=== PATIENT | female | born 1970 | race Caucasian/White ===

== ENCOUNTER 2018-12-16 11:40 | Inpatient (IN) ==
--- NOTE | 2018-12-16 11:44 | Emergency Department Note ---
Disposition Clinical Impression: Multifocal pneumonia, Elevated troponin, Hypokalemia Sepsis Qualifiers: Sepsis type: sepsis due to unspecified organism Sepsis acute organ dysfunction status: unspecified Qualified Code(s): A41.9 - Sepsis, unspecified organism Disposition: Admitted As Inpatient Time of Disposition: 20:26 General Adult HPI - General Stated complaint: cp Time Seen by Provider: 12/16/18 11:42 - Related Data Home Medications Medication Instructions Recorded Confirmed Albuterol Sulfate [Albuterol 2 puff IH Q4HR 12/29/14 12/29/14 Inhaler] Axert 12.5 mg PO AD PRN 12/29/14 12/16/18 Buspirone [Buspar] 15 mg PO BID 12/29/14 12/29/14 Cetirizine HCl [Zyrtec] 10 mg PO DAILY 12/29/14 12/16/18 Citalopram [CeleXA] 40 mg PO QPM 12/29/14 12/16/18 Cyclobenzaprine [Flexeril] 5 mg PO TID 12/29/14 12/16/18 DULoxetine [Cymbalta] 60 mg PO QPM 12/29/14 12/16/18 DiphenhydraMINE [Benadryl] 25 mg PO Q6HR 12/29/14 12/16/18 Fluticasone Propionate Nasal 1 spray NS DAILY PRN 12/29/14 12/16/18 [Flonase] Folic Acid 1 mg PO TID 12/29/14 12/16/18 Gabapentin [Neurontin] 600 mg PO HS 12/29/14 12/16/18 Metformin [Glucophage] 500 mg PO BID 12/29/14 12/16/18 Omeprazole [PriLOSEC] 40 mg PO QPM 12/29/14 12/16/18 Oxymorphone HCl [Opana ER] 15 mg PO Q12H 12/29/14 12/16/18 Propranolol [Inderal] 40 mg PO BID 12/29/14 12/16/18 Temazepam [Restoril] 30 mg PO HS 12/29/14 12/16/18 Allergies Allergy/AdvReac Type Severity Reaction Status Date / Time adhesive Allergy Hives Verified 12/29/14 09:06 Amoxicillin Allergy Hives Verified 12/29/14 09:06 clarithromycin [From Biaxin] Allergy Hives Verified 12/29/14 09:06 Erythromycin Base Allergy Hives Verified 12/29/14 10:52 [From Erythrocin] morphine Allergy Hives Verified 12/29/14 09:06 Penicillins Allergy Hives Verified 12/29/14 09:06 sulfamethoxazole Allergy Hives Verified 06/06/16 15:55 [From Bactrim] trimethoprim [From Bactrim] Allergy Hives Verified 06/06/16 15:55 Past Medical History - Past Medical History Medical history: Reports: asthma, COPD, CVA, diabetes, fibromyalgia, hypertension, RA Psychiatric history: Reports: no psych history - Social History Smoking Status: Never smoker Smokeless Tobacco Status: No Alcohol use: Reports: none Drug use: Reports: none Course Vital Signs Temperature 99.0 F 12/16/18 11:46 Pulse Rate 136 12/16/18 11:46 Respiratory Rate 22 12/16/18 11:46 Blood Pressure 165/85 12/16/18 11:46 O2 Sat by Pulse Oximetry 97 12/16/18 11:46 Temperature 98.3 F 12/16/18 19:02 Pulse Rate 136 12/16/18 19:02 Respiratory Rate 24 12/16/18 19:02 Blood Pressure 135/80 12/16/18 19:02 O2 Sat by Pulse Oximetry 95 12/16/18 19:02 Oxygen Delivery Oxygen Delivery Room Air Medical Decision Making - Lab Data Result diagrams: 12/16/18 11:53 12/16/18 17:07 Lab Results 12/16/18 12/16/18 12/16/18 Range/Units 11:53 11:53 13:18 WBC 13.9 H (4.3-11.1) K/mcL RBC 4.09 (3.82-4.97) M/mcL Hgb 14.1 (11.5-15.4) g/dL Hct 40.6 (35.3-44.9) % MCV 99.3 (83.0-100.0) fL MCH 34.5 H (28.0-33.3) pg MCHC 34.7 (31.6-35.5) g/dL RDW 13.1 (11.5-14.5) % Plt Count 198 (140-400) K/mcL MPV 11.0 (9.4-12.4) fL Immature Gran % 0.9 (0-4) % Seg Neutrophils % 78.7 % Lymphocytes % 6.6 % Monocytes % 13.6 % Eosinophils % 0.0 % Basophils % 0.2 % Neutrophils # 10.9 H (1.6-8.9) K/mcL Lymphocytes # 0.9 (0.6-4.6) K/mcL Monocytes # 1.9 H (0.0-1.3) K/mcL Eosinophils # 0.0 (0.0-0.6) K/mcL Basophils # 0.0 (0.0-0.2) K/mcL Sodium 129 L (136-145) mEq/L Potassium 3.4 L (3.5-5.1) mEq/L Chloride 92 L (98-107) mEq/L Carbon Dioxide 24 (23-29) mEq/L BUN 14 (6-20) mg/dL Creatinine 0.92 (0.60-1.20) mg/dL Est GFR ( Amer) > 60 (> 60) Est GFR (Non-Af Amer) > 60 (> 60) BUN/Creatinine Ratio 15 (6-26) Glucose 350 H (70-105) mg/dL Calculated Osmolality 282 (280-300) Lactic Acid 1.7 (0.5-2.2) mmol/L Calcium 8.8 (8.6-10.3) mg/dL Total Bilirubin 1.1 H (0.3-1.0) mg/dL Direct Bilirubin 0.4 H (0.0-0.2) mg/dL Indirect Bilirubin 0.7 (0.0-1.2) mg/dL AST 10 L (13-39) Units/L ALT 12 (7-52) Units/L Alkaline Phosphatase 80 (34-104) Units/L Troponin I 0.04 H* (< 0.04) ng/mL Serum Total Protein 7.2 (6.4-8.9) g/dL Albumin 3.8 (3.5-5.7) g/dL Globulin 3.4 (2.4-3.5) g/dL Albumin/Globulin Ratio 1.1 (1.1-2.2) Lipase 9 L (11-82) Units/L Critical Care Time Critical Care Time: Yes Total Critical Care Time: 30 Attestation: The high probability of a clinically significant, sudden or life threatening deterioration of the [] system(s) required my full and direct attention, intervention and personal management. The aggregate critical care time was [] minutes. This time is in addition to time spent performing reported procedures but includes the following: [] Data Review and interpretation [] Patient assessment and monitoring of vital signs [] Documentation [] Medication orders and management Attestation Statement - Attestation Attestation: I reviewed the residents documentation and agree with the residents assessment and plan of care. I have personally had face to face time with the patient. (Brief History, Brief Exam, and MDM) I personally supervised and was present for the reyes/critical portions of the following procedures completed by the resident: (add procedures performed here). [id number] time provided Patient arrives by EMS complaining of chest discomfort. She was given an aspirin prehospital. She appears in no acute distress upon arrival to the medical treatment room. I evaluated this patient in conjunction with the resident physician Dr. Engel. I attest to supervising the resident physician's interpretation of the ECG
[2018-12-16] MEDS ORDERED: 0.9 % Sodium Chloride 1,000 ML IVC ONE (11:49)
[2018-12-16] MEDS ORDERED: *HR* FentaNYL (PF) 100 MCG/2 ML VIAL IVP ONE ×2 (11:49→16:28)
[2018-12-16] MEDS ORDERED: Ondansetron 4 MG/2 ML VIAL IVP ONE ×2 (11:49→12:00)
--- NOTE | 2018-12-16 12:02 | Emergency Department Note ---
Disposition Clinical Impression: Multifocal pneumonia, Elevated troponin, Hypokalemia Sepsis Qualifiers: Sepsis type: sepsis due to unspecified organism Sepsis acute organ dysfunction status: unspecified Qualified Code(s): A41.9 - Sepsis, unspecified organism Disposition: Admitted As Inpatient Referrals: Wilton Reyna DO [Primary Care Provider] - Forms: ED Satisfaction Letter Time of Disposition: 13:34 General Adult HPI - General Chief complaint: ED Chest Pain Stated complaint: cp Time Seen by Provider: 12/16/18 11:42 Source: patient, EMS Mode of arrival: EMS Limitations: no limitations Nursing Notes Reviewed: Yes Vital Signs Reviewed: Yes - History of Present Illness HPI Narrative: 48F with past medical history of diabetes, COPD, high blood pressure presents emergency department with generalized illness. Patient states that she has been feeling sick since with constant nausea and vomiting and dry heaving. She is felt feverish at home but did not take her temperature. She now has epigastric abdominal pain with associated shortness of breath. She has not been able to take any of her at-home medications due to her constant vomiting and dry heaving and has not been able to tolerate water. She states she had similar sym ptoms to this is when she had pneumonia back in June. She denies recent cough. She denies abdominal pain and diarrhea. Pain Scale: 8 - Related Data Home Medications Medication Instructions Recorded Confirmed Albuterol Sulfate [Albuterol 2 puff IH Q4HR 12/29/14 12/29/14 Inhaler] Axert 12.5 mg PO AD PRN 12/29/14 12/29/14 Buspirone [Buspar] 15 mg PO BID 12/29/14 12/29/14 Cetirizine HCl [Zyrtec] 10 mg PO DAILY 12/29/14 12/29/14 Citalopram [CeleXA] 40 mg PO QPM 12/29/14 12/29/14 Cyclobenzaprine [Flexeril] 5 mg PO TID 12/29/14 12/29/14 DULoxetine [Cymbalta] 60 mg PO QPM 12/29/14 12/29/14 DiphenhydraMINE [Benadryl] 25 mg PO Q6HR 12/29/14 12/29/14 Fluticasone Propionate Nasal 1 spray NS DAILY PRN 12/29/14 12/29/14 [Flonase] Folic Acid 1 mg PO TID 12/29/14 12/29/14 Gabapentin [Neurontin] 600 mg PO HS 12/29/14 12/29/14 HydrOXYzine Pamoate 25 mg PO TID 12/29/14 12/29/14 Hydrochlorothiazide 50 mg PO QAM 12/29/14 12/29/14 Metformin [Glucophage] 500 mg PO BID 12/29/14 12/29/14 Omeprazole [PriLOSEC] 40 mg PO QPM 12/29/14 12/29/14 Oxymorphone HCl [Opana ER] 10 mg PO Q12H 12/29/14 12/29/14 Propranolol [Inderal] 40 mg PO BID 12/29/14 12/29/14 Temazepam [Restoril] 30 mg PO HS 12/29/14 12/29/14 Topiramate [Topamax] 50 mg PO QPM 12/29/14 12/29/14 Topiramate [Topamax] 100 mg PO QAM 12/29/14 12/29/14 Previous Rx's Medication Instructions Recorded Doxycycline 100 mg PO BID #42 capsule 12/30/14 Mupirocin [Bactroban Oint] 1 appl TP BID #44 g 06/06/16 levoFLOXacin [Levaquin] 500 mg PO DAILY #7 tablet 06/06/16 metroNIDAZOLE [Flagyl] 500 mg PO BID #20 tablet 06/06/16 Allergies Allergy/AdvReac Type Severity Reaction Status Date / Time adhesive Allergy Hives Verified 12/29/14 09:06 Amoxicillin Allergy Hives Verified 12/29/14 09:06 clarithromycin [From Biaxin] Allergy Hives Verified 12/29/14 09:06 Erythromycin Base Allergy Hives Verified 12/29/14 10:52 [From Erythrocin] morphine Allergy Hives Verified 12/29/14 09:06 Penicillins Allergy Hives Verified 12/29/14 09:06 sulfamethoxazole Allergy Hives Verified 06/06/16 15:55 [From Bactrim] trimethoprim [From Bactrim] Allergy Hives Verified 06/06/16 15:55 All systems ED: reviewed and negative except as stated. Review of Systems: As Per HPI Constitutional: Reports: fever, weakness Cardiovascular: Reports: chest pain. Denies: palpitations, dyspnea on exertion Respiratory: Reports: dyspnea. Denies: cough, wheezes Gastrointestinal: Reports: nausea, vomiting. Denies: abdominal pain, diarrhea Genitourinary: Denies: dysuria, hematuria Musculoskeletal: Denies: back pain, neck pain Integumentary: Denies: rash Neurological: Reports: headache Endocrine: Reports: fatigue Past Medical History - Past Medical History Attestation: Yes The following information was validated with the patient. Source: patient Medical history: Reports: asthma, COPD, CVA, diabetes, fibromyalgia, hypertension, RA Psychiatric history: Reports: no psych history - Social History Smoking Status: Current every day smoker Smokeless Tobacco Status: No Alcohol use: Reports: none Drug use: Reports: none Physical Exam - General Limitations: no limitations General appearance: alert, in no apparent distress - Head Head exam: atraumatic, normocephalic - Eye Eye exam: Present: normal appearance, PERRL, EOMI - ENT ENT exam: mucous membranes dry - Neck Neck exam: Present: normal inspection. Absent: tenderness, lymphadenopathy - Chest Chest inspection: Present: tenderness (Tenderness to palpation over the sternum). Absent: rash - Respiratory Respiratory exam: Present: normal lung sounds bilaterally. Absent: wheezes - Cardiovascular Cardiovascular exam: Present: normal rhythm, tachycardia - Abdominal Exam Abdominal exam: Present: soft, tenderness. Absent: distention, guarding, rebound, rigidity Abdominal tenderness: Present: epigastrium, mild - Extremities Exam Extremities exam: Present: normal inspection, pedal edema (trace). Absent: tenderness - Neurological Exam Neurological exam: Present: alert, oriented X3 - Psychiatric Psychiatric exam: Present: normal affect, normal mood - Skin Skin exam: Present: warm, intact, diaphoresis Course Vital Signs Temperature 99.0 F 12/16/18 11:46 Pulse Rate 136 12/16/18 11:46 Respiratory Rate 22 12/16/18 11:46 Blood Pressure 165/85 12/16/18 11:46 O2 Sat by Pulse Oximetry 97 12/16/18 11:46 Temperature 99.0 F 12/16/18 11:46 Pulse Rate 136 12/16/18 11:46 Respiratory Rate 22 12/16/18 11:46 Blood Pressure 165/85 12/16/18 11:46 O2 Sat by Pulse Oximetry 97 12/16/18 11:46 Oxygen Delivery Oxygen Delivery Room Air Medical Decision Making - MDM Narrative Medical decision making narrative: Patient presents with nausea and vomiting and associated epigastric and sternal chest pain for the past 5 days. We will obtain EKG, chest x-ray, basic labs, troponin, lipase and treat the patient's pain and nausea with fentanyl, Zofran and a liter of normal saline. 1300 - patient's chest x-ray shows evidence of a multifocal pneumonia. She does have an elevated white count and meets sepsis criteria. We will obtain blood c ultures and lactate, give her another 2 L of normal saline and start her on Rocephin and azithromycin. Patient will be admitted to the hospital for further management of her pneumonia. She also did have a slightly elevated troponin at 0.04 and we will give her a one-time dose of Lovenox while here in the emergency department. 1330 - pt has been accepted by Dr. Lyon - Medical Records Medical records reviewed: Yes I reviewed the patient's medical records. - Lab Data Lab results reviewed: Yes I reviewed the patient's lab results. Result diagrams: 12/16/18 11:53 12/16/18 11:53 Lab Results 12/16/18 12/16/18 Range/Units 11:53 11:53 WBC 13.9 H (4.3-11.1) K/mcL RBC 4.09 (3.82-4.97) M/mcL Hgb 14.1 (11.5-15.4) g/dL Hct 40.6 (35.3-44.9) % MCV 99.3 (83.0-100.0) fL MCH 34.5 H (28.0-33.3) pg MCHC 34.7 (31.6-35.5) g/dL RDW 13.1 (11.5-14.5) % Plt Count 198 (140-400) K/mcL MPV 11.0 (9.4-12.4) fL Immature Gran % 0.9 (0-4) % Seg Neutrophils % 78.7 % Lymphocytes % 6.6 % Monocytes % 13.6 % Eosinophils % 0.0 % Basophils % 0.2 % Neutrophils # 10.9 H (1.6-8.9) K/mcL Lymphocytes # 0.9 (0.6-4.6) K/mcL Monocytes # 1.9 H (0.0-1.3) K/mcL Eosinophils # 0.0 (0.0-0.6) K/mcL Basophils # 0.0 (0.0-0.2) K/mcL Sodium 129 L (136-145) mEq/L Potassium 3.4 L (3.5-5.1) mEq/L Chloride 92 L (98-107) mEq/L Carbon Dioxide 24 (23-29) mEq/L BUN 14 (6-20) mg/dL Creatinine 0.92 (0.60-1.20) mg/dL Est GFR ( Amer) > 60 (> 60) Est GFR (Non-Af Amer) > 60 (> 60) BUN/Creatinine Ratio 15 (6-26) Glucose 350 H (70-105) mg/dL Calculated Osmolality 282 (280-300) Calcium 8.8 (8.6-10.3) mg/dL Total Bilirubin 1.1 H (0.3-1.0) mg/dL Direct Bilirubin 0.4 H (0.0-0.2) mg/dL Indirect Bilirubin 0.7 (0.0-1.2) mg/dL AST 10 L (13-39) Units/L ALT 12 (7-52) Units/L Alkaline Phosphatase 80 (34-104) Units/L Troponin I 0.04 H* (< 0.04) ng/mL Serum Total Protein 7.2 (6.4-8.9) g/dL Albumin 3.8 (3.5-5.7) g/dL Globulin 3.4 (2.4-3.5) g/dL Albumin/Globulin Ratio 1.1 (1.1-2.2) Lipase 9 L (11-82) Units/L - Radiology Data Radiology results reviewed: Yes I reviewed the patient's radiology results. - EKG Data EKG #1 EKG attestation: Yes I reviewed and interpreted this EKG. EKG results narrative: EKG obtained at 11:51 on 12/16/18 Heart rate 1 37 bpm, MI interval 156, QRS duration 92, QT 396, QTC 447 Sinus tachycardia with right axis deviation. No signs of ST segment elevations or depressions. No other T-wave abnormalities. No significant changes with exception to rate control compared to previous EKG dated 05/08/2014.
[2018-12-16 12:14] LABS: Basophils % 0.2 %; Hematocrit 40.6 % (35.3-44.9); Hemoglobin 14.1 g/dL (11.5-15.4); Immature Granulocytes % 0.9 % (0-4); Lymphocytes # 0.9 K/mcL (0.6-4.6); Lymphocytes % 6.6 %; Mean Corpuscular HGB Conc 34.7 g/dL (31.6-35.5); Mean Corpuscular Hemoglobin 34.5 pg (28.0-33.3); Mean Corpuscular Volume 99.3 fL (83.0-100.0); Monocytes # 1.9 K/mcL (0.0-1.3); Monocytes % 13.6 %; Neutrophils # 10.9 K/mcL (1.6-8.9); Platelet Count 198 K/mcL (140-400); Red Blood Count 4.09 M/mcL (3.82-4.97); Red Cell Distribution Width 13.1 % (11.5-14.5); Segmented Neutrophils % 78.7 %; White Blood Count 13.9 K/mcL (4.3-11.1)
[2018-12-16 12:39] LABS: Troponin I 0.04 ng/mL (< 0.04)
[2018-12-16 12:48] LABS: Alanine Aminotransferase 12 Units/L (7-52); Albumin 3.8 g/dL (3.5-5.7); Albumin/Globulin Ratio 1.1 (1.1-2.2); Alkaline Phosphatase 80 Units/L (34-104); Aspartate Amino Transferase 10 Units/L (13-39); BUN/Creatinine Ratio 15 (6-26); Bilirubin,Direct 0.4 mg/dL (0.0-0.2); Bilirubin,Indirect 0.7 mg/dL (0.0-1.2); Bilirubin,Total 1.1 mg/dL (0.3-1.0); Blood Urea Nitrogen 14 mg/dL (6-20); Calcium 8.8 mg/dL (8.6-10.3); Carbon Dioxide 24 mEq/L (23-29); Chloride 92 mEq/L (98-107); Globulin 3.4 g/dL (2.4-3.5); Glucose 350 mg/dL (70-105); Lipase 9 Units/L (11-82); Osmolality,Calculated 282 (280-300); Potassium 3.4 mEq/L (3.5-5.1); Sodium 129 mEq/L (136-145); Total Protein 7.2 g/dL (6.4-8.9); eGFR For African Americans > 60 (> 60); eGFR For Non-African Americans > 60 (> 60)
[2018-12-16] MEDS ORDERED: cefTRIAXone 2,000 MG in Water for inj. (sterile) 20 ML IVP ONE (13:03)
[2018-12-16] MEDS ORDERED: Acetaminophen 325 MG TABLET PO ONE (13:03)
[2018-12-16] MEDS ORDERED: Azithromycin 500 MG in D5% in Water 250 ML IVPB ONE (13:03)
[2018-12-16] MEDS ORDERED: *HR* Enoxaparin 150 MG/ML SYRINGE SQ ONE (13:05)
[2018-12-16] MEDS ORDERED: 0.9 % Sodium Chloride 1,000 ML IVC SCH (13:15)
[2018-12-16] MEDS ORDERED: Ringers Solution, Lactated 1,000 ML IVC ONE ×2 (13:32)
[2018-12-16] MEDS ORDERED: Naloxone 0.4 MG/ML INJ IVP PRN (14:45)
--- NOTE | 2018-12-16 14:45 | Internal Med History&Physical ---
Date of Encounter: 12/16/18 Time of Encounter: 14:44 Internal Medicine - H&P: HPI Chief complaint: shortness of breath Admitted From: Home Plans for Post Hospital Care: Home History of present illness: Ms. Adolfo Fields is a 48 year old female with past medical history of COPD, CVA with left-sided residual weakness, rheumatoid arthritis, migraine, chronic back pain, obstructive sleep apnea, diabetes, hypertension came in with complain of fecal debris breathing and fevers since last 5 days. Started sooner any nose 6 days ago which progressed to difficulty breathing and cough. Was associated multiple episodes of vomiting which made patient not to eat since last Sunday. She started having some chest discomfort since Sunday as well. She has not taken any of her medication since last 4-5 days. She was treated for pneumonia in July of this year with 1-2 weeks of antibiotics which she is not able to recall. She does have significant penicillin and Bactrim allergy leading to life-threatening shortness of breath. She has been any palpitation and shortness of breath with minimal exertion. She has also associated diarrhea many times a day since past 4-5 days. Denies any sick contacts or recent travel . She is on Remicade and methotrexate for rheumatoid arthritis. Patient is a smoker but has not smoked since last 4-5 days. Denies any syncopal episodes. She does have a history of clot in her left leg when she was young and was treated with blood thinners. She has associated rash on her face which she reports being present for past 4-5 days and whenever she is sick. She is morbidly obese and has sleep apnea but does not use CPAP. Patient was evaluated in ER and was found to have multifocal pneumonia on chest x-ray associated with leukocytosis, tachycardia and hyponatremia with mildly elevated troponin. She denies any abdominal pain. She was given 2 L of IV fluids in ER, azithromycin and Rocephin and weightbase dose of Lovenox. Admission was requested for further management. Past Med Surg Social Fam HX - Past Medical History Medical history: asthma, COPD, CVA, diabetes, fibromyalgia, hypertension, RA Additional medical history: chronic migranes, osteoarthritis Psychiatric history: no psych history - Past Surgical History Additional surgical history: back surgery - Social History Smoking Status: Current every day smoker Smokeless Tobacco Status: No Alcohol use: none Drug use: none - Family History Mother Living Status: Still Living Hx Family Cardiac Disorders: Yes - Additional Family History Additional family history: Father had lung cancer and at the age of 57. Mother had diabetes blood pressure and at age of 59 from MRSA infection after heart surgery. Internal Medicine - H&P: Meds Albuterol Sulfate [Albuterol Inhaler] 2 puff IH Q4HR 12/29/14 [History] Axert 12.5 mg PO AD PRN 12/29/14 [History] Buspirone [Buspar] 15 mg PO BID 12/29/14 [History] Cetirizine HCl [Zyrtec] 10 mg PO DAILY 12/29/14 [History] Citalopram [CeleXA] 40 mg PO QPM 12/29/14 [History] Cyclobenzaprine [Flexeril] 5 mg PO TID 12/29/14 [History] DULoxetine [Cymbalta] 60 mg PO QPM 12/29/14 [History] DiphenhydraMINE [Benadryl] 25 mg PO Q6HR 12/29/14 [History] Fluticasone Propionate Nasal [Flonase] 1 spray NS DAILY PRN 12/29/14 [History] Folic Acid 1 mg PO TID 12/29/14 [History] Gabapentin [Neurontin] 600 mg PO HS 12/29/14 [History] Metformin [Glucophage] 500 mg PO BID 12/29/14 [History] Omeprazole [PriLOSEC] 40 mg PO QPM 12/29/14 [History] Oxymorphone HCl [Opana ER] 15 mg PO Q12H 12/29/14 [History] Propranolol [Inderal] 40 mg PO BID 12/29/14 [History] Temazepam [Restoril] 30 mg PO HS 12/29/14 [History] Allergy/AdvReac Type Severity Reaction Status Date / Time adhesive Allergy Hives Verified 12/29/14 09:06 Amoxicillin Allergy Hives Verified 12/29/14 09:06 clarithromycin [From Biaxin] Allergy Hives Verified 12/29/14 09:06 Erythromycin Base Allergy Hives Verified 12/29/14 10:52 [From Erythrocin] morphine Allergy Hives Verified 12/29/14 09:06 Penicillins Allergy Hives Verified 12/29/14 09:06 sulfamethoxazole Allergy Hives Verified 06/06/16 15:55 [From Bactrim] trimethoprim [From Bactrim] Allergy Hives Verified 06/06/16 15:55 All Systems PM: A 10-system review of systems was performed and is negative for pertinent findings except as documented above in the HPI. - Constitutional Vitals: Temp Pulse Resp BP Pulse Ox 99.0 F 140 24 174/104 97 12/16/18 11:46 12/16/18 13:55 12/16/18 13:55 12/16/18 13:55 12/16/18 13:55 Exam: Constitutional: Vitals as noted. Conversant. appears sick. Morbidly obese Eyes : Sclera white, conjunctiva clear, lid lag noted on Lt, PEARLA. ENT : Grossly normal hearing. dry mucus membranes. Respiratory : tachypnic, mild accessory muscle use. Distant sounds. No rales, rhonchi or wheezes appreciated Cardiovascular : tachycardic, +S1, +S2. no murmur, gallop, rubs. No chest wall tenderness GI/Abdominal : Soft, Non-tender, Non-distended, no peritoneal signs. no orgenomegaly or mass appreciated. no hernia. Musculoskeletal: no deformity noted. no edema or cyanosis, warm extremities, no calf tenderness. Neurological: AO X3, CN II-XII grossly intact, grossly normal motor and sensory exam. Skin: malar rash on face Pych: Good insight and judgement. Intact memory. AOx3. Internal Med - H&P Results - Labs CBC & Chem 7: 12/16/18 11:53 12/16/18 11:53 Labs: Short CBC 12/16/18 Range/Units 11:53 WBC 13.9 H (4.3-11.1) K/mcL Hgb 14.1 (11.5-15.4) g/dL Hct 40.6 (35.3-44.9) % Plt Count 198 (140-400) K/mcL Neutrophils # 10.9 H (1.6-8.9) K/mcL BMP 12/16/18 11:53 Sodium 129 L Potassium 3.4 L Chloride 92 L Carbon Dioxide 24 BUN 14 Creatinine 0.92 Glucose 350 H Calcium 8.8 Cardiac Enzymes 12/16/18 Range/Units 11:53 Troponin I 0.04 H* (< 0.04) ng/mL Liver Function 08/12/19 Range/Units 11:53 Total Bilirubin 1.1 H (0.3-1.0) mg/dL Direct Bilirubin 0.4 H (0.0-0.2) mg/dL AST 10 L (13-39) Units/L ALT 12 (7-52) Units/L Alkaline Phosphatase 80 (34-104) Units/L Albumin 3.8 (3.5-5.7) g/dL - EKG Data -: EKG Interpreted by Myself EKG shows normal: sinus rhythm Rate: tachycardia (rt axis deviation, s1 and q3 noted) - Impressions ITS Impressions Chest X-Ray 12/16/18 11:42 IMPRESSION: Multifocal pneumonia D/ / Manuela Cole MD / Manuela Cole MD Interpreting Provider: Manuela Cole MD - Assessment and Plan (1) Acute respiratory failure Current Visit: Yes Status: Acute Assessment and plan: Likely secondary to multifocal pneumonia seen on x-ray and is dehydrated Patient still with a cardiac after finishing second liter ivf. Continue IV fluid for now. Patient with multiple risk factors for PE including previous DVT and rheumatoid arthritis. We will get CT with contrast to rule out PE. Patient did get a dose of Lovenox in ER which was weight-based. Continue empiric antibiotics with ceftriaxone and azithromycin. Blood cultures collected. We will obtain sputum cultures if possible. Obtain urinary antigen and MRSA screening. Qualifiers: Respiratory failure complication: hypoxia Qualified Code(s): J96.01 - Acute respiratory failure with hypoxia (2) COPD (chronic obstructive pulmonary disease) Current Visit: Yes Status: Acute Assessment and plan: Patient has history of COPD. May have mild exacerbation from pneumonia with decreased air entry Keep patient on bronchodilators. We will avoid steroids for now. Qualifiers: COPD type: unspecified COPD Qualified Code(s): J44.9 - Chronic obstructive pulmonary disease, unspecified (3) Elevated troponin Current Visit: Yes Status: Acute Assessment and plan: Likely demand ischemia. We will repeat troponin. Patient does have reproducible central chest pain. No ischemic changes on EKG. (4) Hypokalemia Current Visit: Yes Status: Acute Assessment and plan: Potassium repleted. Monitor for now. (5) Multifocal pneumonia Current Visit: Yes Status: Acute Assessment and plan: As above (6) Sepsis Current Visit: Yes Status: Acute Assessment and plan: Has sepsis criteria with pneumonia. Lactate is normal. We will continue IV fluids for now. Hemodynamically stable however still tachycardic. Workup as above. Qualifiers: Sepsis type: sepsis due to unspecified organism Sepsis acute organ dysfunction status: unspecified Qualified Code(s): A41.9 - Sepsis, unspecified organism (7) Diabetes Current Visit: No Status: Chronic Qualifiers: Diabetes mellitus type: type 2 Diabetes mellitus [employer] insulin use: without mcfp use Diabetes mellitus complication status: without complication Qualified Code(s): E11.9 - Type 2 diabetes mellitus without complications (8) History of CVA (cerebrovascular accident) Current Visit: No Status: Chronic Assessment and plan: Has some baseline left-sided weakness. No new deficits. Uses cane to walk and home. Is morbidly obese however able to take care of her daily needs. We will get physical therapy once more stable. (9) Rheumatoid arthritis Current Visit: No Status: Chronic Assessment and plan: Has history of rheumatoid arthritis and is on Remicade and methotrexate Does get her liver function test periodically. Currently without transaminitis. Has mildly elevated bilirubin. Currently without any new symptom except rash which she does mention worsens with any illness and has previous workup of SLE which was negative. Will continue to follow up outpatient. Qualifiers: Rheumatoid arthritis location: knee Rheumatoid factor presence: unspecified presence Laterality: bilateral Qualified Code(s): M06.9 - Rheumatoid arthritis, unspecified - Time Spent With Patient Total time spent is greater than 50% in coordination of care (as documented) at patient's floor/unit and/or counseling patient:
[2018-12-16] MEDS ORDERED: Ipratropium/Albuterol Neb 3 ML IH PRN (14:48)
[2018-12-16] MEDS ORDERED: Isovue-370 500 ML BOTTLE IVP ONE (14:50)
[2018-12-16] MEDS ORDERED: Ipratropium/Albuterol Neb 3 ML ONE (15:16)
[2018-12-16] MEDS: Ipratropium/Albuterol Neb 3 ML IH SCH ×2 (15:31→22:12)
[2018-12-16] MEDS ORDERED: *HR* Dextrose 50 % in Water (Syg) 50 ML SYRINGE IVP PRN (17:02)
[2018-12-16] MEDS ORDERED: D5% in Water 1,000 ML IVC PRN (17:02)
[2018-12-16] MEDS ORDERED: Dextrose Gel 15 GM/37.5 ML TUBE PO PRN ×2 (17:02)
[2018-12-16 17:18] LABS: ABG Base Excess -1 mEq/L (-2 to 3); ABG HCO3 22 mEq/L (21-27); ABG Oxygen Saturation 94 % (95-98); ABG PCO2 33 mmHg (35-45); ABG PH 7.44 pH Units (7.32-7.45); ABG PO2 67 mmHg (85-104); ABG TCO2 23 mEq/L (20-26)
[2018-12-16 18:03] LABS: BUN/Creatinine Ratio 15 (6-26); Blood Urea Nitrogen 15 mg/dL (6-20); Calcium 8.1 mg/dL (8.6-10.3); Carbon Dioxide 25 mEq/L (23-29); Chloride 94 mEq/L (98-107); Glucose 331 mg/dL (70-105); Osmolality,Calculated 280 (280-300); Potassium 3.6 mEq/L (3.5-5.1); Sodium 128 mEq/L (136-145); eGFR For African Americans > 60 (> 60); eGFR For Non-African Americans 57 (> 60)
[2018-12-16] MEDS ORDERED: Temazepam 15 MG CAPSULE PO SCH (21:00)
[2018-12-16] MEDS ORDERED: Insulin DETEMIR 100 UNIT/ML X5UNITS SQ SCH (21:00)
[2018-12-16] MEDS: Ondansetron 4 MG/2 ML VIAL IVP PRN (21:35)
[2018-12-16] MEDS: Gabapentin 300 MG CAPSULE PO SCH (21:35)
[2018-12-16] MEDS: *HR* OxyCODONE Immed Rel 15 MG TABLET PO PRN (21:36)
[2018-12-17 03:02] LABS: Basophils % 0.3 %; Eosinophils % 0.1 %; Hemoglobin 12.7 g/dL (11.5-15.4); Immature Granulocytes % 0.7 % (0-4); Lymphocytes # 1.1 K/mcL (0.6-4.6); Lymphocytes % 7.5 %; Mean Corpuscular HGB Conc 33.4 g/dL (31.6-35.5); Mean Corpuscular Volume 101.9 fL (83.0-100.0); Mean Platelet Volume 11.1 fL (9.4-12.4); Monocytes # 2.3 K/mcL (0.0-1.3); Monocytes % 15.1 %; Neutrophils # 11.4 K/mcL (1.6-8.9); Platelet Count 218 K/mcL (140-400); Red Blood Count 3.73 M/mcL (3.82-4.97); Red Cell Distribution Width 13.2 % (11.5-14.5); Segmented Neutrophils % 76.3 %; White Blood Count 14.9 K/mcL (4.3-11.1)
[2018-12-17 03:20] LABS: Calcium 7.9 mg/dL (8.6-10.3); Potassium 4.3 mEq/L (3.5-5.1)
[2018-12-17] MEDS: Ipratropium/Albuterol Neb 3 ML IH SCH ×4 (04:22→21:16)
[2018-12-17] MEDS ORDERED: cefTRIAXone 1,000 MG in 0.9 % Sodium Chloride Mini Bag 100 ML IVPB ONE (05:48)
[2018-12-17] MEDS: Ondansetron 4 MG/2 ML VIAL IVP PRN (06:11)
[2018-12-17] MEDS: *HR* OxyCODONE Immed Rel 15 MG TABLET PO PRN ×3 (06:11→22:50)
[2018-12-17] MEDS: Doxycycline 100 MG in 0.9 % Sodium Chloride Mini Bag 100 ML IVPB SCH ×2 (06:59→17:13)
[2018-12-17] MEDS: Ringers Solution, Lactated 1,000 ML IVC SCH (07:00)
[2018-12-17] MEDS: Insulin LISPRO 300 UNITS/3 ML VIAL SQ SCH ×3 (08:45→17:13)
[2018-12-17] MEDS ORDERED: Albuterol 2.5 MG/3 ML NEBULIZER IH PRN (09:55)
--- NOTE | 2018-12-17 10:42 | Internal Med Progress Note ---
Hospitalist Progress Note - Encounter Date of Encounter: 12/17/18 Time of Encounter: 10:42 - Subjective Interval History: Patient seen and examined this morning at bedside. No acute overnight events. Denies new complaints. See feels her breathing is much improved and her chest pain has resolved. Feels tired and wants to rest. Denies any abdominal pain nausea vomiting or diarrhea. - Exam Vitals: Temp Pulse Resp BP Pulse Ox 98.8 F 110 16 126/99 89 12/17/18 07:59 12/17/18 07:59 12/17/18 10:02 12/17/18 07:59 12/17/18 10:02 Exam: Constitutional: Vitals as noted. Conversant. appears sick. Morbidly obese Respiratory : tachypnic, Distant sounds. No rales, rhonchi or wheezes appreciated Cardiovascular : tachycardic, +S1, +S2. no murmur, gallop, rubs. GI/Abdominal : Soft, Non-tender, Non-distended, no peritoneal signs. Musculoskeletal: no deformity noted. no edema or cyanosis, warm extremities, no calf tenderness. Neurological: AO X3, CN II-XII grossly intact, grossly normal motor and sensory exam. somewhat sleepy Skin: malar rash on face more fade than yesterday - Assessment and Plan (1) Acute respiratory failure Current Visit: Yes Status: Acute (2) COPD (chronic obstructive pulmonary disease) Current Visit: Yes Status: Acute (3) Elevated troponin Current Visit: Yes Status: Acute (4) Hypokalemia Current Visit: Yes Status: Acute (5) Multifocal pneumonia Current Visit: Yes Status: Acute (6) Sepsis Current Visit: Yes Status: Acute (7) Diabetes Current Visit: No Status: Chronic (8) History of CVA (cerebrovascular accident) Current Visit: No Status: Chronic (9) Rheumatoid arthritis Current Visit: No Status: Chronic - Summary of Assessment and Plan Summary of Assessment and Plan: Assessment Acute Acute respiratory failure multifocal pneumonia hypokalemia Sepsis AYESHA Chronic COPD DM h/o CVA with lt weakness Rheumatoid arthritis Morbid obesity CHRISTIAN Plan - sepsis and acute respiratory failure likely multifocal pneumonia. c/w empiric ceftriaxone and doxycycline. f/u blood culture. f/u urine ag. - CTA negative for PE but renal function worse today. c/w gentle IVF for now given AYESHA. obtain urine sodium and creat. f/u BMP. - Tachycardia possible from sepsis or BB withdrawal as she was not taking her medication. home medication resumed. - troponin elevated likely demand. flat velocity. got dose of therapeutic lovenox in er. will hold for now. No ischemic changes on EKG. chest pain resolved. Likely related to pneumonia - c/w bronchodilators. Refuses Bipap. - accucheck and SSI achs. start levemir 20 - Time Spent with Patient Total time spent is greater than 50% in coordination of care (as documented) at patient's floor/unit and/or counseling patient: Internal Medicine: Result - Labs CBC & Chem 7: 12/17/18 02:38 12/17/18 02:38 Labs: Short CBC 12/16/18 12/17/18 Range/Units 11:53 02:38 WBC 13.9 H 14.9 H (4.3-11.1) K/mcL Hgb 14.1 12.7 (11.5-15.4) g/dL Hct 40.6 38.0 (35.3-44.9) % Plt Count 198 218 (140-400) K/mcL Neutrophils # 10.9 H 11.4 H (1.6-8.9) K/mcL BMP 12/16/18 12/16/18 12/17/18 11:53 17:07 02:38 Sodium 129 L 128 L 129 L Potassium 3.4 L 3.6 4.3 Chloride 92 L 94 L 96 L Carbon Dioxide 24 25 25 BUN 14 15 17 Creatinine 0.92 1.02 1.21 H Glucose 350 H 331 H 313 H Calcium 8.8 8.1 L 7.9 L Cardiac Enzymes 12/16/18 12/16/18 12/16/18 Range/Units 11:53 17:07 22:28 Troponin I 0.04 H* 0.06 H* 0.05 H* (< 0.04) ng/mL Liver Function 12/16/18 Range/Units 11:53 Total Bilirubin 1.1 H (0.3-1.0) mg/dL Direct Bilirubin 0.4 H (0.0-0.2) mg/dL AST 10 L (13-39) Units/L ALT 12 (7-52) Units/L Alkaline Phosphatase 80 (34-104) Units/L Albumin 3.8 (3.5-5.7) g/dL - ABG Interpretation ABG results: ABG ABG pH 7.44 pH Units (7.32-7.45) 12/16/18 17:15 ABG pCO2 33 mmHg (35-45) L 12/16/18 17:15 ABG pO2 67 mmHg (85-104) L 12/16/18 17:15 ABG O2 Saturation 94 % (95-98) L 12/16/18 17:15 - Impressions Impressions Chest X-Ray 12/16/18 11:42 IMPRESSION: Multifocal pneumonia D/ / Manuela Cole MD / Manuela Cole MD Interpreting Provider: Manuela Cole MD Chest CTA 12/16/18 14:50 IMPRESSION: 1. No evidence for acute pulmonary embolism. 2. Extensive airspace consolidation posterior right lower lobe most suggestive of pneumonia. Some mediastinal adenopathy is probably reactive. Follow-up to resolution advised. 3. Air trapping. 4 calcified 1.8 cm right lung base middle lobe nodule likely granuloma. D/ / Amrik New MD / Amrik New MD Interpreting Provider: Amrik New MD Consult Discharge Plan - Plan Referrals: Wilton Reyna DO [Primary Care Provider] - (1) Acute respiratory failure Qualifiers: Respiratory failure complication: hypoxia Qualified Code(s): J96.01 - Acute respiratory failure with hypoxia (2) COPD (chronic obstructive pulmonary disease) Qualifiers: COPD type: unspecified COPD Qualified Code(s): J44.9 - Chronic obstructive pulmonary disease, unspecified (6) Sepsis Qualifiers: Sepsis type: sepsis due to unspecified organism Sepsis acute organ dysfunction status: unspecified Qualified Code(s): A41.9 - Sepsis, unspecified organism (7) Diabetes Qualifiers: Diabetes mellitus type: type 2 Diabetes mellitus long goods drier insulin use: without halfway use Diabetes mellitus complication status: without complication Qualified Code(s): E11.9 - Type 2 diabetes mellitus without complications (9) Rheumatoid arthritis Qualifiers: Rheumatoid arthritis location: knee Rheumatoid factor presence: unspecified presence Laterality: bilateral Qualified Code(s): M06.9 - Rheumatoid arthritis, unspecified
[2018-12-17] MEDS: Acetaminophen 325 MG TABLET PO PRN (12:15)
[2018-12-17] MEDS: cefTRIAXone 1,000 MG in Water for inj. (sterile) 10 ML IVP SCH (12:17)
[2018-12-17 18:31] LABS: Calcium 7.7 mg/dL (8.6-10.3); Potassium 3.6 mEq/L (3.5-5.1)
[2018-12-17 18:46] LABS: Estimated Average Glucose 160 mg/dl
[2018-12-17] MEDS: Gabapentin 300 MG CAPSULE PO SCH (20:37)
[2018-12-17] MEDS ORDERED: Insulin DETEMIR 100 UNIT/ML X5UNITS SQ SCH (21:00)
[2018-12-17] MEDS ORDERED: Insulin LISPRO 300 UNITS/3 ML VIAL SQ SCH (21:00)
[2018-12-17] MEDS: Nystatin POWDER 30 GM BOTTLE TP SCH (22:35)
[2018-12-18] MEDS: Ringers Solution, Lactated 1,000 ML IVC SCH ×3 (02:47→08:52)
[2018-12-18] MEDS: Ipratropium/Albuterol Neb 3 ML IH SCH ×4 (03:47→21:39)
[2018-12-18 05:03] LABS: Basophils % 0.3 %; Eosinophils # 0.3 K/mcL (0.0-0.6); Eosinophils % 2.1 %; Hematocrit 40.9 % (35.3-44.9); Immature Granulocytes % 0.6 % (0-4); Lymphocytes # 1.2 K/mcL (0.6-4.6); Lymphocytes % 9.3 %; Mean Corpuscular HGB Conc 34.2 g/dL (31.6-35.5); Mean Corpuscular Hemoglobin 34.4 pg (28.0-33.3); Mean Corpuscular Volume 100.5 fL (83.0-100.0); Mean Platelet Volume 11.2 fL (9.4-12.4); Monocytes # 1.3 K/mcL (0.0-1.3); Monocytes % 9.9 %; Neutrophils # 9.9 K/mcL (1.6-8.9); Platelet Count 205 K/mcL (140-400); Red Blood Count 4.07 M/mcL (3.82-4.97); Segmented Neutrophils % 77.8 %; White Blood Count 12.7 K/mcL (4.3-11.1)
[2018-12-18 05:23] LABS: BUN/Creatinine Ratio 16 (6-26); Blood Urea Nitrogen 20 mg/dL (6-20); Calcium 8.3 mg/dL (8.6-10.3); Carbon Dioxide 24 mEq/L (23-29); Chloride 94 mEq/L (98-107); Glucose 323 mg/dL (70-105); Osmolality,Calculated 281 (280-300); Potassium 4.1 mEq/L (3.5-5.1); Sodium 128 mEq/L (136-145); eGFR For African Americans 55 (> 60); eGFR For Non-African Americans 45 (> 60)
[2018-12-18 05:24] LABS: Troponin I < 0.03 ng/mL (< 0.04)
[2018-12-18 05:25] LABS: Platelet Estimate Normal (Normal)
[2018-12-18] MEDS: Doxycycline 100 MG in 0.9 % Sodium Chloride Mini Bag 100 ML IVPB SCH (06:09)
[2018-12-18] MEDS: *HR* Enoxaparin 40 MG/0.4 ML SYRINGE SQ SCH (06:09)
[2018-12-18 08:48] LABS: Troponin I 0.04 ng/mL (< 0.04)
[2018-12-18] MEDS: cefTRIAXone 1,000 MG in Water for inj. (sterile) 10 ML IVP SCH (08:51)
[2018-12-18] MEDS: *HR* OxyCODONE Immed Rel 15 MG TABLET PO PRN ×2 (08:51→15:49)
[2018-12-18] MEDS: Insulin LISPRO 300 UNITS/3 ML VIAL SQ SCH ×3 (08:52→17:56)
--- NOTE | 2018-12-18 09:13 | Internal Med Progress Note ---
Hospitalist Progress Note - Encounter Date of Encounter: 12/18/18 Time of Encounter: 09:11 - Subjective Interval History: Patient complains of chest pain with coughing. Apparently was on oxygen at home prior but was not compliant with this. Has been up moving around without difficulty per patient. - Exam Vitals: Temp Pulse Resp BP Pulse Ox 99.7 F H 105 18 97/61 90 12/18/18 07:12 12/18/18 07:12 12/18/18 07:12 12/18/18 07:12 12/18/18 07:12 Exam: General: Ill-appearing and in no acute distress HEENT: No erythema of posterior pharynx. No exudates. Lymphatics: No mandibular or cervical lymphadenopathy Cardiovascular: RRR. No murmurs. No chest wall tenderness. Lungs: Diffuse rhonchi. Regular chest rise. Abdomen: Non-tender. No rebound or gaurding. Nl bowel sounds. Extremities: No edema. 2+ pulses radial and pedal pulses Skin: No rahses, abrasions, or contusions. Nl cap refill. Psych: Nl attention. A&Ox3 Neuro: microsystems engineer II-XII intact. 5/5 strength. Sensation to light touch and pinprick intact. - Assessment and Plan (1) Sepsis Current Visit: Yes Status: Acute Assessment and Plan: Patient with history of COPD still smoking and morbid obesity with CHRISTIAN presents with sepsis and acute hypoxic respiratory failure in the setting of evidence of multifocal pneumonia on chest imaging. -Started on ceftriaxone and doxycycline on admission. -Cultures have been negative. -Doing better this morning. Still tachycardic leukocytosis meeting sepsis criteria, would benefit from another day in the hospital -Need to wean off oxygen as well PLAN: - Ceftriaxone and IV doxycycline --> Cefdinir + oral doxycycline - Wean oxygen - 6mn walk test - F/u cultures - Scheduled nebs - PT (2) Acute and chronic respiratory failure with hypoxia Current Visit: Yes Status: Acute Assessment and Plan: Secondary to multifocal pneumonia in the setting of COPD and CHRISTIAN (3) Multifocal pneumonia Current Visit: Yes Status: Acute Assessment and Plan: See above (4) COPD (chronic obstructive pulmonary disease) Current Visit: Yes Status: Acute (5) Diabetes Current Visit: No Status: Chronic Assessment and Plan: Will restart home insulin regimen given hyperglycemia (6) Rheumatoid arthritis Current Visit: No Status: Chronic (7) History of CVA (cerebrovascular accident) Current Visit: No Status: Chronic DVT Prophylaxis: LMWH Internal Medicine: Result - Labs CBC & Chem 7: 12/18/18 04:50 12/18/18 04:50 Labs: Short CBC 12/18/18 Range/Units 04:50 WBC 12.7 H (4.3-11.1) K/mcL Hgb 14.0 (11.5-15.4) g/dL Hct 40.9 (35.3-44.9) % Plt Count 205 (140-400) K/mcL Neutrophils # 9.9 H (1.6-8.9) K/mcL BMP 12/17/18 12/18/18 17:11 04:50 Sodium 127 L 128 L Potassium 3.6 4.1 Chloride 95 L 94 L Carbon Dioxide 24 24 BUN 24 H 20 Creatinine 1.45 H 1.25 H Glucose 265 H 323 H Calcium 7.7 L 8.3 L Cardiac Enzymes 12/17/18 12/18/18 Range/Units 17:11 04:50 Troponin I 0.04 H* < 0.03 (< 0.04) ng/mL - ABG Interpretation ABG results: ABG ABG pH 7.44 pH Units (7.32-7.45) 12/16/18 17:15 ABG pCO2 33 mmHg (35-45) L 12/16/18 17:15 ABG pO2 67 mmHg (85-104) L 12/16/18 17:15 ABG O2 Saturation 94 % (95-98) L 12/16/18 17:15 Consult Discharge Plan - Plan Referrals: Wilton Reyna DO [Primary Care Provider] - (1) Sepsis Qualifiers: Sepsis type: sepsis due to unspecified organism Sepsis acute organ dysfunction status: unspecified Qualified Code(s): A41.9 - Sepsis, unspecified organism (4) COPD (chronic obstructive pulmonary disease) Qualifiers: COPD type: unspecified COPD Qualified Code(s): J44.9 - Chronic obstructive pulmonary disease, unspecified (5) Diabetes Qualifiers: Diabetes mellitus type: type 2 Diabetes mellitus fdc insulin use: without intermediate school teacher use Diabetes mellitus complication status: without complication Qualified Code(s): E11.9 - Type 2 diabetes mellitus without complications (6) Rheumatoid arthritis Qualifiers: Rheumatoid arthritis location: knee Rheumatoid factor presence: unspecified presence Laterality: bilateral Qualified Code(s): M06.9 - Rheumatoid arthritis, unspecified
[2018-12-18] MEDS: Acetaminophen 325 MG TABLET PO PRN ×2 (10:32→17:55)
[2018-12-18] MEDS: Nystatin POWDER 30 GM BOTTLE TP SCH ×2 (15:46→20:44)
[2018-12-18] MEDS ORDERED: DiphenhydraMINE CREAM 28.4 GM TUBE TP PRN (16:02)
[2018-12-18] MEDS ORDERED: Ringers Solution, Lactated 1,000 ML IVC ONE (17:01)
[2018-12-18] MEDS: Gabapentin 300 MG CAPSULE PO SCH (20:43)
[2018-12-18] MEDS: Doxycycline 100 MG CAPSULE PO SCH (20:43)
[2018-12-18] MEDS: Cefdinir 300 MG CAPSULE PO SCH (20:43)
[2018-12-18] MEDS ORDERED: Insulin DETEMIR 100 UNIT/ML X5UNITS SQ SCH (21:00)
[2018-12-18] MEDS: Insulin DETEMIR 100 UNIT/ML X5UNITS SQ SCH (21:12)
[2018-12-19] MEDS: Ipratropium/Albuterol Neb 3 ML IH SCH ×4 (03:49→22:03)
[2018-12-19 05:04] LABS: Mean Corpuscular HGB Conc 34.4 g/dL (31.6-35.5); Mean Corpuscular Hemoglobin 34.3 pg (28.0-33.3); Mean Corpuscular Volume 99.4 fL (83.0-100.0); Platelet Count 146 K/mcL (140-400); Red Blood Count 3.62 M/mcL (3.82-4.97); Red Cell Distribution Width 12.8 % (11.5-14.5); White Blood Count 11.5 K/mcL (4.3-11.1)
[2018-12-19 05:05] LABS: Hemoglobin 12.4 g/dL (11.5-15.4)
[2018-12-19 05:16] LABS: BUN/Creatinine Ratio 25 (6-26); Blood Urea Nitrogen 29 mg/dL (6-20); Calcium 7.8 mg/dL (8.6-10.3); Carbon Dioxide 23 mEq/L (23-29); Chloride 97 mEq/L (98-107); Glucose 337 mg/dL (70-105); Osmolality,Calculated 285 (280-300); Potassium 4.9 mEq/L (3.5-5.1); Sodium 128 mEq/L (136-145); eGFR For African Americans > 60 (> 60); eGFR For Non-African Americans 50 (> 60)
[2018-12-19] MEDS: *HR* Enoxaparin 40 MG/0.4 ML SYRINGE SQ SCH (05:35)
[2018-12-19] MEDS: Doxycycline 100 MG CAPSULE PO SCH (07:21)
[2018-12-19] MEDS: Insulin LISPRO 300 UNITS/3 ML VIAL SQ SCH ×3 (07:21→17:17)
[2018-12-19] MEDS: Cefdinir 300 MG CAPSULE PO SCH (07:21)
[2018-12-19] MEDS: Nystatin POWDER 30 GM BOTTLE TP SCH ×2 (07:22→22:06)
[2018-12-19] MEDS ORDERED: Isovue-370 500 ML BOTTLE IVP ONE (07:25)
[2018-12-19] MEDS ORDERED: Ringers Solution, Lactated 1,000 ML IVC ONE (08:38)
--- NOTE | 2018-12-19 08:43 | Internal Med Progress Note ---
Hospitalist Progress Note - Encounter Date of Encounter: 12/19/18 Time of Encounter: 08:39 - Subjective Interval History: Patient feels that the symptoms yesterday. Chest x-ray yesterday with worsening multifocal pneumonia. Going down for CT today to investigate further. - Exam Vitals: Temp Pulse Resp BP Pulse Ox 99.0 F 106 18 128/82 91 12/19/18 07:05 12/19/18 07:05 12/19/18 07:05 12/19/18 07:05 12/19/18 07:05 Exam: General: Ill-appearing and in no acute distress HEENT: No erythema of posterior pharynx. No exudates. Lymphatics: No mandibular or cervical lymphadenopathy Cardiovascular: RRR. No murmurs. No chest wall tenderness. Lungs: Diffuse rhonchi. Regular chest rise. Abdomen: Non-tender. No rebound or gaurding. Nl bowel sounds. Extremities: No edema. 2+ pulses radial and pedal pulses Skin: No rahses, abrasions, or contusions. Nl cap refill. Psych: Nl attention. A&Ox3 Neuro: film numberer II-XII intact. 5/5 strength. Sensation to light touch and pinprick intact. - Assessment and Plan (1) Sepsis Current Visit: Yes Status: Acute Assessment and Plan: Patient with history of COPD still smoking and morbid obesity with CHRISTIAN presents with sepsis and acute hypoxic respiratory failure in the setting of evidence of multifocal pneumonia on chest imaging. -Started on ceftriaxone and doxycycline on admission. -Cultures have been negative. -[place]bird acutely worse yesterday. [place] lightheaded. Receiving IV fluids. Chest x -ray with worsening multifocal pneumonia -We will obtain CT chest to further investigate and possibly moved patient back to IV antibiotics. Of note, MRSA swab negative PLAN: - CT chest - Cefdinir + oral doxycycline - Wean oxygen - 6mn walk test - F/u cultures - Scheduled nebs - PT (2) Acute and chronic respiratory failure with hypoxia Current Visit: Yes Status: Acute Assessment and Plan: Secondary to multifocal pneumonia in the setting of COPD and CHRISTIAN (3) Multifocal pneumonia Current Visit: Yes Status: Acute Assessment and Plan: See above (4) COPD (chronic obstructive pulmonary disease) Current Visit: Yes Status: Acute Assessment and Plan: Patient has history of COPD. May have mild exacerbation from pneumonia with decreased air entry Keep patient on bronchodilators. We will avoid steroids for now. (5) Diabetes Current Visit: No Status: Chronic Assessment and Plan: Will restart home insulin regimen given hyperglycemia (6) Rheumatoid arthritis Current Visit: No Status: Chronic Assessment and Plan: Has history of rheumatoid arthritis and is on Remicade and methotrexate Does get her liver function test periodically. Currently without transaminitis. Has mildly elevated bilirubin. Currently without any new symptom except rash which she does mention worsens with any illness and has previous workup of SLE which was negative. Will continue to follow up outpatient. (7) History of CVA (cerebrovascular accident) Current Visit: No Status: Chronic Assessment and Plan: Has some baseline left-sided weakness. No new deficits. Uses cane to walk and home. Is morbidly obese however able to take care of her daily needs. We will get physical therapy once more stable. DVT Prophylaxis: LMWH Internal Medicine: Result - Labs CBC & Chem 7: 12/19/18 04:47 12/19/18 04:47 Labs: Short CBC 12/19/18 Range/Units 04:47 WBC 11.5 H (4.3-11.1) K/mcL Hgb 12.4 D (11.5-15.4) g/dL Hct 36.0 (35.3-44.9) % Plt Count 146 (140-400) K/mcL BMP 12/19/18 04:47 Sodium 128 L Potassium 4.9 Chloride 97 L Carbon Dioxide 23 BUN 29 H Creatinine 1.15 Glucose 337 H Calcium 7.8 L Cardiac Enzymes 12/17/18 Range/Units 17:11 Troponin I 0.04 H* (< 0.04) ng/mL - ABG Interpretation ABG results: ABG ABG pH 7.44 pH Units (7.32-7.45) 12/16/18 17:15 ABG pCO2 33 mmHg (35-45) L 12/16/18 17:15 ABG pO2 67 mmHg (85-104) L 12/16/18 17:15 ABG O2 Saturation 94 % (95-98) L 12/16/18 17:15 - Impressions Impressions Chest X-Ray 12/18/18 17:01 IMPRESSION: Interval worsening of multifocal pneumonia. D/ / Devan Viveros MD / Devan Viveros MD Interpreting Provider: Devan Viveros MD Consult Discharge Plan - Plan Referrals: Bala Lynn DO [Partnered Physician] - 12/26/18 9:30 am (Please follow up as schedule...) (1) Sepsis Qualifiers: Sepsis type: sepsis due to unspecified organism Sepsis acute organ dysfunctio n status: unspecified Qualified Code(s): A41.9 - Sepsis, unspecified organism (4) COPD (chronic obstructive pulmonary disease) Qualifiers: COPD type: unspecified COPD Qualified Code(s): J44.9 - Chronic obstructive pulmonary disease, unspecified (5) Diabetes Qualifiers: Diabetes mellitus type: type 2 Diabetes mellitus care home insulin use: without ferry terminal supervisor use Diabetes mellitus complication status: without complication Qualified Code(s): E11.9 - Type 2 diabetes mellitus without complications (6) Rheumatoid arthritis Qualifiers: Rheumatoid arthritis location: knee Rheumatoid factor presence: unspecified presence Laterality: bilateral Qualified Code(s): M06.9 - Rheumatoid arthrit is, unspecified
--- NOTE | 2018-12-19 15:07 | Electrocardiograph Report ---
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
[2018-12-19] MEDS: Gabapentin 300 MG CAPSULE PO SCH (20:12)
[2018-12-19] MEDS: Insulin DETEMIR 100 UNIT/ML X5UNITS SQ SCH (22:06)
[2018-12-20] MEDS: Cefepime HCl 2,000 MG in Water for inj. (sterile) 20 ML IVP SCH ×3 (00:13→17:03)
[2018-12-20] MEDS: MetroNIDAZOLE 500 MG/100 ML 500 MG/100 ML BAG IVPB SCH ×3 (00:26→17:03)
[2018-12-20 03:06] LABS: Hematocrit 30.6 % (35.3-44.9); Mean Corpuscular HGB Conc 33.3 g/dL (31.6-35.5); Mean Corpuscular Hemoglobin 33.8 pg (28.0-33.3); Mean Corpuscular Volume 101.3 fL (83.0-100.0); Mean Platelet Volume 12.1 fL (9.4-12.4); Platelet Count 160 K/mcL (140-400); Red Blood Count 3.02 M/mcL (3.82-4.97); Red Cell Distribution Width 12.8 % (11.5-14.5)
[2018-12-20 03:08] LABS: Hemoglobin 10.2 g/dL (11.5-15.4)
[2018-12-20] MEDS: Ipratropium/Albuterol Neb 3 ML IH SCH ×3 (03:19→15:30)
[2018-12-20 03:24] LABS: BUN/Creatinine Ratio 23 (6-26); Blood Urea Nitrogen 21 mg/dL (6-20); Carbon Dioxide 30 mEq/L (23-29); Chloride 98 mEq/L (98-107); Potassium 4.3 mEq/L (3.5-5.1); Sodium 133 mEq/L (136-145)
[2018-12-20 03:25] LABS: Calcium 8.1 mg/dL (8.6-10.3); Glucose 292 mg/dL (70-105); Osmolality,Calculated 290 (280-300); eGFR For African Americans > 60 (> 60); eGFR For Non-African Americans > 60 (> 60)
[2018-12-20] MEDS: *HR* Enoxaparin 40 MG/0.4 ML SYRINGE SQ SCH (05:45)
--- NOTE | 2018-12-20 08:30 | Pulmonology Consult Note ---
<Slim Ibarra - Last Filed: 12/20/18 13:51> Date of Encounter: 12/20/18 Time of Encounter: 08:18 Assessment and Plan (1) Multifocal pneumonia Status: Acute Multifocal PNA - Presented with SOB, chest pain, leukocytosis - Blood cultures pending - Legionella, strep pneumo antigens negative - Improving clinically - CXR: Multifocal PNA - CT chest: R lower lobe consolidation, small R pleural effusion Plan: - Cont Antibiotics - Duonebs q6h - No acute need for bronchoscopy (2) Acute and chronic respiratory failure with hypoxia Status: Acute Acute Resp failure - Secondary to PNA - Improving - Pt breathing comfortably on RA Plan: - Continue to Monitor - CPAP at night if patient agrees (3) Sepsis Status: Resolved Sespsis - Resolved - As above for PNA Qualifiers: Sepsis type: sepsis due to unspecified organism Sepsis acute organ dysf unction status: unspecified Qualified Code(s): A41.9 - Sepsis, unspecified organism (4) Sleep disorder breathing Status: Acute Sleep disorder breathing - May be contributing to respiratory failure Plan: - CPAP at night if patient is willing (5) Asthma Status: Chronic Hx of ASthma - Cont Duoneds - Albuterol PRN Qualifiers: Asthma severity: mild Asthma persistence: intermittent Asthma complication type: uncomplicated Qualified Code(s): J45.20 - Mild intermittent asthma, uncomplicated History of Present Illness Consult date: 12/19/18 Reason for consult: dyspnea, pneumonia, abnormal CXR/CT Chief complaint: SOB History of present illness: Angie Stringer is a 48-year-old female with past medical history of COPD, CVA with left-sided residual weakness, RA, migraines, chronic back pain, CHRISTIAN, diabetes, hypertension. She presented to the emergency department with generalized illness. She had been feeling sick since last with co nstant nausea, vomiting, and dry heaving. She reported subjective fevers at home. Illness became progressively worse and she developed shortness of breath. She reported having been treated for pneumonia in June of this year. She denied cough. She reported having palpitations and shortness of breath with minimal exertion over this period. She denied any sick contacts or recent travel. She is a current smoker. History of sleep apnea but does not use CPAP. In the emergency room temperature was 99.0, she was tachycardic at 136, tachypneic at 22, hypertensive at 165/85, she was saturating at 97% on room air. She had a leukocytosis at 13.9, ABG showed hypoxemia with PO2 at 67, she was hyponatremic likely secondary to dehydration, vomiting, and diarrhea. Blood cultures are incubating at this time. Legionella antigen and strep pneumo antigens were negative. Empiric Antibiotics were started for treatment of pneumonia. Patient's symptoms did not improve much, chest CT yesterday showed worsening pneumonia, extensive consolidation with air bronchograms in the right lower lobe. Pulmonology was consulted because of this worsening pneumonia and to evaluate for bronchoscopy. When examined, patient was lying comfortably in bed. She had no shortness of breath and was breathing comfortable on room air. States she is feeling okay today did report some mild shortness of breath t hroughout the night. Denies cough. Patient states she was diagnosed with COPD in her late 20s. She began smoking about 5 years ago. She has history of asthma since childhood. States she needs to use albuterol inhaler roughly 7-8 times per year. She denies any workplace exposures to lung irritants in the past. Past Med Surg Social Fam HX - Past Medical History Medical history: asthma, COPD, CVA, diabetes, fibromyalgia, hypertension, RA Additional medical history: chronic migranes, osteoarthritis Psychiatric history: no psych history - Past Surgical History Additional surgical history: back surgery - Social History Smoking Status: Current every day smoker Smokeless Tobacco Status: No Alcohol use: none Drug use: none - Family History Mother Living Status: Still Living Hx Family Cardiac Disorders: Yes Medications and Allergies Axert 12.5 mg PO AD PRN 12/29/14 [History] Cetirizine HCl [Zyrtec] 10 mg PO DAILY 12/29/14 [History] Cyclobenzaprine [Flexeril] 5 mg PO TID PRN 12/29/14 [History] DiphenhydraMINE [Benadryl] 25 mg PO Q6HR PRN 12/29/14 [History] Fluticasone Propionate Nasal [Flonase] 1 spray NS DAILY PRN 12/29/14 [History] Folic Acid 1 mg PO TID 12/29/14 [History] Metformin [Glucophage] 1,000 mg PO BIDWM 12/29/14 [History] Omeprazole [PriLOSEC] 40 mg PO QPM 12/29/14 [History] Propranolol [Inderal] 60 mg PO BID 12/29/14 [History] Albuterol Neb [AccuNeb] 1.25 mg IH Q6H PRN 12/17/18 [History] Albuterol Sulfate [Ventolin Hfa] 2 puff IH Q6H PRN 12/17/18 [History] Atorvastatin [Lipitor] 40 mg PO HS 12/17/18 [History] DULoxetine [Cymbalta] 20 mg PO DAILY 12/17/18 [History] Duloxetine HCl [Cymbalta] 60 mg PO DAILY 12/17/18 [History] Gabapentin [Neurontin] 800 mg PO TID 12/17/18 [History] HYDROmorphone [Dilaudid] 4 mg PO DAILY 12/17/18 [History] InFLIXimab [Remicade] 180 mg IVPB QMONTH 12/17/18 [History] Insulin Glargine [Lantus] 60 unit SQ HS 12/17/18 [History] Losartan Potassium 100 mg PO DAILY 12/17/18 [History] Methotrexate [Otrexup] 22.5 mg PO STACY 12/17/18 [History] Oxymorphone HCl [Oxymorphone HCl ER] 15 mg PO Q12H 12/17/18 [History] Quetiapine Fumarate [Seroquel] 50 mg PO HS 12/17/18 [History] Azithromycin 250 mg PO Q24H #5 tablet 12/20/18 [Rx] Azithromycin [Zithromax] 250 mg PO Q24H #5 tablet 12/20/18 [Rx] Cefdinir [Omnicef] 300 mg PO BID #10 capsule 12/20/18 [Rx] Cefdinir [Omnicef] 300 mg PO BID 5 Days #11 capsule 12/20/18 [Rx] Allergy/AdvReac Type Severity Reaction Status Date / Time adhesive Allergy Hives Verified 12/17/18 11:03 Amoxicillin Allergy Hives Verified 12/17/18 11:03 clarithromycin [From Biaxin] Allergy Hives Verified 12/17/18 11:03 Erythromycin Base Allergy Hives Verified 12/17/18 11:03 [From Erythrocin] morphine Allergy Hives Verified 12/17/18 11:03 Penicillins Allergy Hives Verified 12/17/18 11:03 sulfamethoxazole Allergy Hives Verified 12/17/18 11:03 [From Bactrim] trimethoprim [From Bactrim] Allergy Hives Verified 12/17/18 11:03 All Systems: The remainder of the systems were reviewed and are negative Review of Systems: Constitutional: Denies fevers, chills, weight loss, generalized fatigue Head/Neck: Denies DENG, neck stiffness EENT: Denies vision changes/blurriness, rhinorrhea, congestion, sore throat CVS: Reports lower extremity edema. Denies chest pain, palpitations, KIDD, orthopnea, PND Pulm: Reports SOB. Denies cough, sputum, hemoptysis, wheezing GI: Denies abdominal pain, nausea, vomiting, diarrhea, constipation, melena, hematemasis : Denies dysuria, increased frequency, urgency, hematuria Heme: Denies ease of bleeding or bruising MSK: Denies joint pain, limited ROM Skin: Denies rashes, ulcers, color changes Neuro: Denies DENG, paresthesias, focal deficits, ataxia Physical Examination Vital Signs: Vital Signs, Last 4 Hours Temp Pulse Resp BP Pulse Ox 12/20/18 06:44 97.3 F L 75 18 109/71 97 12/20/18 04:51 97.6 F 78 19 112/59 91 Gen: Vitals noted. No acute distress. Lying comfortably in bed Eyes: anicteric sclerae, moist conjunctivae. Pupils equal, round, and reactive to light HENT: Atraumatic, normocephalic; oropharynx clear with moist mucous membranes and no mucosal ulcerations Neck: Trachea midline; supple, no thyromegaly or lymphadenopathy Cardiac: RRR, no murmurs, rubs or gallops, S1/S2 Pulmonary: R middle lobe Ronchi, other clear to auscultation BL Abdomen: Obese, soft, nontender, no rigidity or guarding MSK: ROM intact, no joint swelling noted Extremities: BL lower extremity edema 1+. nontender calf, no cyanosis or clubbing. Chronic Rash on R foot Skin: Normal temperature, turgor and texture; no ulcers or subcutaneous nodules Neuro: moves all extremities, no focal deficits. Psych: Appropriate mood and behavior. A&Ox3 Results - Laboratory Findings CBC and BMP: 12/20/18 02:16 12/20/18 02:16 ABG ABG pH 7.44 pH Units (7.32-7.45) 12/16/18 17:15 ABG pCO2 33 mmHg (35-45) L 12/16/18 17:15 ABG pO2 67 mmHg (85-104) L 12/16/18 17:15 ABG O2 Saturation 94 % (95-98) L 12/16/18 17:15 Abnormal lab findings: Abnormal lab results WBC 11.5 K/mcL (4.3-11.1) H 12/19/18 04:47 RBC 3.02 M/mcL (3.82-4.97) L 12/20/18 02:16 Hgb 10.2 g/dL (11.5-15.4) L D 12/20/18 02:16 Hct 30.6 % (35.3-44.9) L 12/20/18 02:16 MCV 101.3 fL (83.0-100.0) H 12/20/18 02:16 MCH 33.8 pg (28.0-33.3) H 12/20/18 02:16 Neutrophils # 9.9 K/mcL (1.6-8.9) H 12/18/18 04:50 Monocytes # 2.3 K/mcL (0.0-1.3) H 12/17/18 02:38 ABG pCO2 33 mmHg (35-45) L 12/16/18 17:15 ABG pO2 67 mmHg (85-104) L 12/16/18 17:15 ABG O2 Saturation 94 % (95-98) L 12/16/18 17:15 Sodium 133 mEq/L (136-145) L 12/20/18 02:16 Potassium 3.4 mEq/L (3.5-5.1) L 12/16/18 11:53 Chloride 97 mEq/L (98-107) L 12/19/18 04:47 Carbon Dioxide 30 mEq/L (23-29) H 12/20/18 02:16 BUN 21 mg/dL (6-20) H 12/20/18 02:16 Creatinine 1.25 mg/dL (0.60-1.20) H 12/18/18 04:50 Est GFR ( Amer) 55 (> 60) L 12/18/18 04:50 Est GFR (Non-Af Amer) 50 (> 60) L 12/19/18 04:47 Glucose 292 mg/dL (70-105) H 12/20/18 02:16 POC Glucose 315 mg/dL (70-99) H 12/19/18 20:36 Hemoglobin A1c 7.2 % (-5.6) H 12/17/18 17:11 Calculated Osmolality 277 (280-300) L 12/17/18 17:11 Calcium 8.1 mg/dL (8.6-10.3) L 12/20/18 02:16 Total Bilirubin 1.1 mg/dL (0.3-1.0) H 12/16/18 11:53 Direct Bilirubin 0.4 mg/dL (0.0-0.2) H 12/16/18 11:53 AST 10 Units/L (13-39) L 12/16/18 11:53 Troponin I 0.04 ng/mL (< 0.04) H* 12/17/18 17:11 Lipase 9 Units/L (11-82) L 12/16/18 11:53 - Microbiology Findings Microbiology Findings: Microbiology, Last 48 Hours 12/18/18 04:30 Legionella Antigen - Final Urine,Clean Catch Streptococcus pneumoniae Antigen (M - Final Consult Discharge Plan - Plan Instructions: Azithromycin (By mouth), Cefdinir (By mouth), How to Stop Smoking (DC), Pneumonia (DC) Referrals: Bala Lynn DO [Partnered Physician] - 12/26/18 9:30 am (Please follow up as schedule...) Nicky Nguyễn MD [Partnered Physician] - 01/23/19 9:30 am (Please follow up as scheduled.) Prescriptions: Azithromycin 250 mg PO Q24H #5 tablet Cefdinir [Omnicef] 300 mg PO BID #10 capsule Cefdinir [Omnicef] 300 mg PO BID 5 Days #11 capsule Azithromycin [Zithromax] 250 mg PO Q24H #5 tablet <Nicky Nguyễn - Last Filed: 12/20/18 20:00> Date of Encounter: 12/20/18 All Systems: The remainder of the systems were reviewed and are negative Physical Examination Vital Signs: Vital Signs, Last 4 Hours Temp Pulse Resp BP Pulse Ox 12/20/18 16:11 98.2 F 85 16 126/75 95 Results - Laboratory Findings CBC and BMP: 12/20/18 02:16 12/20/18 02:16 ABG ABG pH 7.44 pH Units (7.32-7.45) 12/16/18 17:15 ABG pCO2 33 mmHg (35-45) L 12/16/18 17:15 ABG pO2 67 mmHg (85-104) L 12/16/18 17:15 ABG O2 Saturation 94 % (95-98) L 12/16/18 17:15 Abnormal lab findings: Abnormal lab results WBC 11.5 K/mcL (4.3-11.1) H 12/19/18 04:47 RBC 3.02 M/mcL (3.82-4.97) L 12/20/18 02:16 Hgb 10.2 g/dL (11.5-15.4) L D 12/20/18 02:16 Hct 30.6 % (35.3-44.9) L 12/20/18 02:16 MCV 101.3 fL (83.0-100.0) H 12/20/18 02:16 MCH 33.8 pg (28.0-33.3) H 12/20/18 02:16 Neutrophils # 9.9 K/mcL (1.6-8.9) H 12/18/18 04:50 Monocytes # 2.3 K/mcL (0.0-1.3) H 12/17/18 02:38 ABG pCO2 33 mmHg (35-45) L 12/16/18 17:15 ABG pO2 67 mmHg (85-104) L 12/16/18 17:15 ABG O2 Saturation 94 % (95-98) L 12/16/18 17:15 Sodium 133 mEq/L (136-145) L 12/20/18 02:16 Potassium 3.4 mEq/L (3.5-5.1) L 12/16/18 11:53 Chloride 97 mEq/L (98-107) L 12/19/18 04:47 Carbon Dioxide 30 mEq/L (23-29) H 12/20/18 02:16 BUN 21 mg/dL (6-20) H 12/20/18 02:16 Creatinine 1.25 mg/dL (0.60-1.20) H 12/18/18 04:50 Est GFR ( Amer) 55 (> 60) L 12/18/18 04:50 Est GFR (Non-Af Amer) 50 (> 60) L 12/19/18 04:47 Glucose 292 mg/dL (70-105) H 12/20/18 02:16 POC Glucose 175 mg/dL (70-99) H 12/20/18 12:01 Hemoglobin A1c 7.2 % (-5.6) H 12/17/18 17:11 Calculated Osmolality 277 (280-300) L 12/17/18 17:11 Calcium 8.1 mg/dL (8.6-10.3) L 12/20/18 02:16 Total Bilirubin 1.1 mg/dL (0.3-1.0) H 12/16/18 11:53 Direct Bilirubin 0.4 mg/dL (0.0-0.2) H 12/16/18 11:53 AST 10 Units/L (13-39) L 12/16/18 11:53 Troponin I 0.04 ng/mL (< 0.04) H* 12/17/18 17:11 Lipase 9 Units/L (11-82) L 12/16/18 11:53 - Clinical Findings Intake & Output: Intake & Output 12/20/18 12/20/18 12/20/18 07:59 15:59 23:59 Intake Total 120 / 240 120 / 240 Balance 120 / 240 120 / 240 - Attending Attestation I saw and evaluated this patient and my medical decision-making was reviewed with the Resident Physician. I agree with the documented findings, disposition and treatment plan as described except to the extent set forth below. We independently had [id number] contact with the patient Patient seen and examined at bedside Labs, radiology, chart personally reviewed. Patient was consulted for this right lower lobe consolidation radiologically there is some worsening but clinically she is getting better with current regimen of bronchodilators , antibiotics patient is a chronic smoker suspected has some obstructive lung disease in her asthma/COPD sent home and albuterol nebulizer patient will need outpatient pulmonology appointment in 6 weeks to document resolution of his right lower lobe pneumonia. And also patient has clinical symptoms of sleep disorder breathing will need outpatient polysomnogram for evaluation of that. Patient will need an exercise oximetry before discharge she is able to tolerate his exercise oximetry she might require oxygen on exertion. Patient says she is symptomatically better. Counseled heavily about smoking cessation how how it will affect her course of her obstructive lung disease.. Since patient is getting better we will hold off any bronchoscopy Intervention in the symptoms getting worse then will consider bronchoscopy.
[2018-12-20] MEDS: Insulin LISPRO 300 UNITS/3 ML VIAL SQ SCH ×3 (09:11→17:02)
[2018-12-20] MEDS: Nystatin POWDER 30 GM BOTTLE TP SCH (09:12)
[2018-12-20] MEDS: Acetaminophen 325 MG TABLET PO PRN (09:12)
[2018-12-20 16:12] VITALS: BP 126/75
--- NOTE | 2018-12-20 16:39 | Discharge Summary ---
Orders not resulted at time of discharge: Pending orders 12/16/18 13:18 Culture,Blood [BC] Stat 12/16/18 16:27 Culture,Sputum with Gram Stain [RM] Routine Date of Encounter: 12/20/18 Time of Encounter: 16:34 - Discharge Diagnosis (1) Sepsis Priority: Primary Status: Resolved Qualifiers: Sepsis type: sepsis due to unspecified organism Sepsis acute organ dysfunction status: unspecified Qualified Code(s): A41.9 - Sepsis, unspecified organism (2) Acute and chronic respiratory failure with hypoxia Priority: Secondary Status: Acute (3) Multifocal pneumonia Priority: Secondary Status: Acute (4) COPD (chronic obstructive pulmonary disease) Priority: Secondary Status: Acute Qualifiers: COPD type: unspecified COPD Qualified Code(s): J44.9 - Chronic obstructive pulmonary disease, unspecified (5) Diabetes Priority: Secondary Status: Chronic Qualifiers: Diabetes mellitus type: type 2 Diabetes mellitus care home insulin use: without intermediate project manager use Diabetes mellitus complication status: without complication Qualified Code(s): E11.9 - Type 2 diabetes mellitus without complications (6) Rheumatoid arthritis Priority: Secondary Status: Chronic Qualifiers: Rheumatoid arthritis location: knee Rheumatoid factor presence: unspecified presence Laterality: bilateral Qualified Code(s): M06.9 - Rheumatoid arth ritis, unspecified (7) History of CVA (cerebrovascular accident) Priority: Secondary Status: Chronic Hospital course: Ms. Adolfo Fields is a 48 year old female with history of COPD still smoking and morbid obesity with CHRISTIAN (non-compliant with CPAP) presented with acute on chronic hypoxic respiratory failure and found to have multifocal penumonia. Pulmonary was consulted and recommend extended course of antibiotics (10 days) with close pulmonary followup for repeat CT scan in 4-6 weeks to monitor for resolution. Patient was sent home on oxygen 3L at rest and 5L with ambulation. Suspect patient needed oxygen even before admission given poor baseline respiratory status. Will follow-up closely with pulmonology and PCP. Will also recieve PT/OT/RN (patient refused SNF placement, high risk for readmission because of this). - Time Spent with Patient Total time spent providing and/or coordinating discharge services: 75 minutes Time spent: Greater than 30 minutes - Discharge Medications Prescriptions: New Cefdinir [Omnicef] 300 mg PO BID #10 capsule Azithromycin [Zithromax] 250 mg PO Q24H #5 tablet Continued Folic Acid 1 mg PO TID Cyclobenzaprine [Flexeril] 5 mg PO TID PRN PRN Reason: Muscle Spasm Propranolol [Inderal] 60 mg PO BID Metformin [Glucophage] 1,000 mg PO BIDWM Fluticasone Propionate Nasal [Flonase] 1 spray NS DAILY PRN PRN Reason: Allergy Symptoms Omeprazole [PriLOSEC] 40 mg PO QPM DiphenhydraMINE [Benadryl] 25 mg PO Q6HR PRN PRN Reason: Itching Cetirizine HCl [Zyrtec] 10 mg PO DAILY Axert 12.5 mg PO AD PRN PRN Reason: Migraine Headache Gabapentin [Neurontin] 800 mg PO TID Atorvastatin [Lipitor] 40 mg PO HS InFLIXimab [Remicade] 180 mg IVPB QMONTH Albuterol Neb [AccuNeb] 1.25 mg IH Q6H PRN PRN Reason: Shortness Of Breath Albuterol Sulfate [Ventolin Hfa] 2 puff IH Q6H PRN PRN Reason: Shortness Of Breath DULoxetine [Cymbalta] 20 mg PO DAILY Duloxetine HCl [Cymbalta] 60 mg PO DAILY HYDROmorphone [Dilaudid] 4 mg PO DAILY Insulin Glargine [Lantus] 60 unit SQ HS Losartan Potassium 100 mg PO DAILY Methotrexate [Otrexup] 22.5 mg PO STACY Oxymorphone HCl [Oxymorphone HCl ER] 15 mg PO Q12H Quetiapine Fumarate [Seroquel] 50 mg PO HS Home Medications: Axert 12.5 mg PO AD PRN 12/29/14 [History] Cetirizine HCl [Zyrtec] 10 mg PO DAILY 12/29/14 [History] Cyclobenzaprine [Flexeril] 5 mg PO TID PRN 12/29/14 [History] DiphenhydraMINE [Benadryl] 25 mg PO Q6HR PRN 12/29/14 [History] Fluticasone Propionate Nasal [Flonase] 1 spray NS DAILY PRN 12/29/14 [History] Folic Acid 1 mg PO TID 12/29/14 [History] Metformin [Glucophage] 1,000 mg PO BIDWM 12/29/14 [History] Omeprazole [PriLOSEC] 40 mg PO QPM 12/29/14 [History] Propranolol [Inderal] 60 mg PO BID 12/29/14 [History] Albuterol Neb [AccuNeb] 1.25 mg IH Q6H PRN 12/17/18 [History] Albuterol Sulfate [Ventolin Hfa] 2 puff IH Q6H PRN 12/17/18 [History] Atorvastatin [Lipitor] 40 mg PO HS 12/17/18 [History] DULoxetine [Cymbalta] 20 mg PO DAILY 12/17/18 [History] Duloxetine HCl [Cymbalta] 60 mg PO DAILY 12/17/18 [History] Gabapentin [Neurontin] 800 mg PO TID 12/17/18 [History] HYDROmorphone [Dilaudid] 4 mg PO DAILY 12/17/18 [History] InFLIXimab [Remicade] 180 mg IVPB QMONTH 12/17/18 [History] Insulin Glargine [Lantus] 60 unit SQ HS 12/17/18 [History] Losartan Potassium 100 mg PO DAILY 12/17/18 [History] Methotrexate [Otrexup] 22.5 mg PO STACY 12/17/18 [History] Oxymorphone HCl [Oxymorphone HCl ER] 15 mg PO Q12H 12/17/18 [History] Quetiapine Fumarate [Seroquel] 50 mg PO HS 12/17/18 [History] Azithromycin [Zithromax] 250 mg PO Q24H #5 tablet 12/20/18 [Rx] Cefdinir [Omnicef] 300 mg PO BID #10 capsule 12/20/18 [Rx] Allergies/Adverse Reactions: Allergy/AdvReac Type Severity Reaction Status Date / Time adhesive Allergy Hives Verified 12/17/18 11:03 Amoxicillin Allergy Hives Verified 12/17/18 11:03 clarithromycin [From Biaxin] Allergy Hives Verified 12/17/18 11:03 Erythromycin Base Allergy Hives Verified 12/17/18 11:03 [From Erythrocin] morphine Allergy Hives Verified 12/17/18 11:03 Penicillins Allergy Hives Verified 12/17/18 11:03 sulfamethoxazole Allergy Hives Verified 12/17/18 11:03 [From Bactrim] trimethoprim [From Bactrim] Allergy Hives Verified 12/17/18 11:03 Date of admission: 12/18/18 10:53 Primary care physician: Wilton Reyna DO Consults: 12/16/18 15:50 Consult to Nutrition [CONS] Routine Comment: Consulting Provider: NUTRITION Reason for Dietary Consult: MST Score 12/17/18 08:24 Consult to Nurse Navigator [CONS] Routine Comment: copd,pn 12/18/18 09:07 Consult to Physical Therapy [CONS] Routine Comment: Evaluate, develop and implement POC Reason for Consult: Deconditioning Does patient have active BEDREST order?: No Is patient medically & hemodynamically stable?: Yes Patient assessed for mobility or mobilized this visit?: No 12/19/18 18:11 Consult to Pulmonology [CONS] Routine Consulting Provider: Pulm [facility] Reason for Consult: worsening multifocal PNA, may need bronch Call Completed: Yes - Constitutional Vitals: Temp Pulse Resp BP Pulse Ox 98.2 F 85 16 126/75 95 12/20/18 16:11 12/20/18 16:11 12/20/18 16:11 12/20/18 16:11 12/20/18 16:11 Exam: General: Ill-appearing and in no acute distress HEENT: No erythema of posterior pharynx. No exudates. Lymphatics: No mandibular or cervical lymphadenopathy Cardiovascular: RRR. No murmurs. No chest wall tenderness. Lungs: Diffuse rhonchi. Regular chest rise. Abdomen: Non-tender. No rebound or gaurding. Nl bowel sounds. Extremities: No edema. 2+ pulses radial and pedal pulses Skin: No rahses, abrasions, or contusions. Nl cap refill. Psych: Nl attention. 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 5/5 strength. Sensation to light touch and pinprick intact. - Patient Status Disposition: Home Health Service Condition: Fair Functional capacity at discharge: independent ambulation Overall status at discharge: patient is progressing back to baseline - Discharge Instructions Follow Up With: Bala Lynn DO [Partnered Physician] - 12/26/18 9:30 am (Please follow up as schedule...) Nicky Nguyễn MD [Partnered Physician] - 01/23/19 9:30 am (Please follow up as scheduled.) - Diet and Activity Activity: as per physical therapy Diet: advance to your usual diet
--- NOTE | 2018-12-20 16:49 | Physician Discharge Referral ---
Home Health/Hosp Referral Info Attending Provider: Delvis Cano MD Provider in Charge Post Discharge: PCP - Diagnosis (1) Sepsis Priority: Primary Status: Resolved (2) Acute and chronic respiratory failure with hypoxia Priority: Secondary Status: Acute (3) Multifocal pneumonia Priority: Secondary Status: Acute (4) COPD (chronic obstructive pulmonary disease) Priority: Secondary Status: Acute (5) Diabetes Priority: Secondary Status: Chronic (6) Rheumatoid arthritis Priority: Secondary Status: Chronic (7) History of CVA (cerebrovascular accident) Priority: Secondary Status: Chronic - Respiratory Orders Oxygen / L per min (3L at rest, 5L with activity) Smoking Cessation: Smoking cessation has been advised. For more information, call the [employer] Tobacco Quit Line at 4-292-IRXJ-NOW. - Diet/Nutrition Diet/Nutrition Orders: No Concentrated Sweets - Activity Activity Orders: Up ad beena, Ambulate - Services Needed Following services are medically necessary services: Nursing, Physical Therapy, Occupational Therapy - Transfer Medications Prescriptions: Cefdinir [Omnicef] 300 mg PO BID #10 capsule Azithromycin [Zithromax] 250 mg PO Q24H #5 tablet Home Medications: Axert 12.5 mg PO AD PRN 12/29/14 [History] Cetirizine HCl [Zyrtec] 10 mg PO DAILY 12/29/14 [History] Cyclobenzaprine [Flexeril] 5 mg PO TID PRN 12/29/14 [History] DiphenhydraMINE [Benadryl] 25 mg PO Q6HR PRN 12/29/14 [History] Fluticasone Propionate Nasal [Flonase] 1 spray NS DAILY PRN 12/29/14 [History] Folic Acid 1 mg PO TID 12/29/14 [History] Metformin [Glucophage] 1,000 mg PO BIDWM 12/29/14 [History] Omeprazole [PriLOSEC] 40 mg PO QPM 12/29/14 [History] Propranolol [Inderal] 60 mg PO BID 12/29/14 [History] Albuterol Neb [AccuNeb] 1.25 mg IH Q6H PRN 12/17/18 [History] Albuterol Sulfate [Ventolin Hfa] 2 puff IH Q6H PRN 12/17/18 [History] Atorvastatin [Lipitor] 40 mg PO HS 12/17/18 [History] DULoxetine [Cymbalta] 20 mg PO DAILY 12/17/18 [History] Duloxetine HCl [Cymbalta] 60 mg PO DAILY 12/17/18 [History] Gabapentin [Neurontin] 800 mg PO TID 12/17/18 [History] HYDROmorphone [Dilaudid] 4 mg PO DAILY 12/17/18 [History] InFLIXimab [Remicade] 180 mg IVPB QMONTH 12/17/18 [History] Insulin Glargine [Lantus] 60 unit SQ HS 12/17/18 [History] Losartan Potassium 100 mg PO DAILY 12/17/18 [History] Methotrexate [Otrexup] 22.5 mg PO STACY 12/17/18 [History] Oxymorphone HCl [Oxymorphone HCl ER] 15 mg PO Q12H 12/17/18 [History] Quetiapine Fumarate [Seroquel] 50 mg PO HS 12/17/18 [History] Azithromycin [Zithromax] 250 mg PO Q24H #5 tablet 12/20/18 [Rx] Cefdinir [Omnicef] 300 mg PO BID #10 capsule 12/20/18 [Rx] Allergies/Adverse Reactions: Allergy/AdvReac Type Severity Reaction Status Date / Time adhesive Allergy Hives Verified 12/17/18 11:03 Amoxicillin Allergy Hives Verified 12/17/18 11:03 clarithromycin [From Biaxin] Allergy Hives Verified 12/17/18 11:03 Erythromycin Base Allergy Hives Verified 12/17/18 11:03 [From Erythrocin] morphine Allergy Hives Verified 12/17/18 11:03 Penicillins Allergy Hives Verified 12/17/18 11:03 sulfamethoxazole Allergy Hives Verified 12/17/18 11:03 [From Bactrim] trimethoprim [From Bactrim] Allergy Hives Verified 12/17/18 11:03 Certification: Further, I certify that my clinical findings support that this patient is homebound (i.e. absences from home require considerable and taxing effort and are for medical reasons or sikh services or infrequently or short duration when for other reasons) because: Very limited mobility and poor baseline respiratory status. Homebound Reason: Patient requires assistance of a person or device to safely leave home Attestation: My signature below is to certify that this patient is under my care and that I, or nurse practitioner, or a physician's chiropractor assistant working with me, has a [id number] encounter with this patient. Delvis Cano MD
[2018-12-20] MEDS ORDERED: Aminoglycoside Consult 1 EACH MC ONE (17:41)
== END 2018-12-20 17:42 | disposition home health service (06) | DRG 720 ==
LOC: 2ANU 11:40 → EMEROOARM 11:40 → SUATTDRO 14:02 → 2ANU 15:14
PROVIDERS: ADMIT Internal Medicine; ATTEND Internal Medicine

== ENCOUNTER 2019-05-06 14:04 | Inpatient (IN) ==
[~2019-05-06 14:04] MED LIST: Aminoglycoside Consult 1 EACH MC ONE
[2019-05-06] MEDS ORDERED: 0.9 % Sodium Chloride 1,000 ML IVC ONE ×2 (14:14→15:26)
[2019-05-06] MEDS ORDERED: Acetaminophen 650 MG RECTAL SUPP RC ONE (14:16)
[2019-05-06 14:57] LABS: Hematocrit 37.2 % (35.3-44.9); Mean Corpuscular HGB Conc 34.9 g/dL (31.6-35.5); Mean Corpuscular Volume 100.3 fL (83.0-100.0); Platelet Count 132 K/mcL (140-400); Red Blood Count 3.71 M/mcL (3.82-4.97); Red Cell Distribution Width 13.2 % (11.5-14.5); White Blood Count 3.5 K/mcL (4.3-11.1)
[2019-05-06 15:16] LABS: Alanine Aminotransferase 27 Units/L (7-52); Albumin 3.6 g/dL (3.5-5.7); Albumin/Globulin Ratio 1.3 (1.1-2.2); Alkaline Phosphatase 68 Units/L (34-104); Aspartate Amino Transferase 23 Units/L (13-39); BUN/Creatinine Ratio 17 (6-26); Bilirubin,Direct 0.4 mg/dL (0.0-0.2); Bilirubin,Total 1.4 mg/dL (0.3-1.0); Blood Urea Nitrogen 52 mg/dL (6-20); Calcium 6.9 mg/dL (8.6-10.3); Carbon Dioxide 22 mEq/L (23-29); Chloride 103 mEq/L (98-107); Globulin 2.8 g/dL (2.4-3.5); Glucose 249 mg/dL (70-105); Osmolality,Calculated 304 (280-300); Sodium 136 mEq/L (136-145); Total Protein 6.4 g/dL (6.4-8.9); Troponin I < 0.03 ng/mL (< 0.04); eGFR For African Americans 19 (> 60); eGFR For Non-African Americans 16 (> 60)
[2019-05-06] MEDS ORDERED: 0.9 % Sodium Chloride 2,000 ML ONE (15:21)
[2019-05-06 15:33] LABS: Lymphocytes # 0.7 K/mcL (0.6-4.6); Neutrophils # 2.8 K/mcL (1.6-8.9)
[2019-05-06 15:34] LABS: Macrocytosis Present (Not Present); Platelet Estimate Decreased (Normal)
[2019-05-06] MEDS ORDERED: Cefepime HCl 1,000 MG in 0.9 % Sodium Chloride Mini Bag 100 ML IVPB SCH (16:00)
[2019-05-06] MEDS: Naloxone 0.4 MG/ML INJ IVP ONE ×2 (16:36→16:51)
[2019-05-06 17:01] LABS: Bilirubin,Urine Small (Negative); Blood,Urine Negative (Negative); Clarity,Urine Cloudy (Clear); Color,Urine Dark Yellow (Yellow); Glucose,Urine (UA) Normal (Normal); Ketones,Urine Negative (Negative); Leukocyte Esterase,Urine Negative (Negative); Nitrite,Urine Negative (Negative); PH,Urine 5.5 pH Units (5.0-8.0); Protein,Urine Negative (Neg-Trace); Specific Gravity,Urine 1.025 (1.010-1.025); Urobilinogen,Urine Normal (Normal)
[2019-05-06 17:05] LABS: ABG Base Excess -7 mEq/L (-2 to 3); ABG HCO3 23 mEq/L (21-27); ABG Oxygen Saturation 97 % (95-98); ABG PCO2 73 mmHg (35-45); ABG PH 7.11 pH Units (7.32-7.45); ABG PO2 120 mmHg (85-104); ABG TCO2 25 mEq/L (20-26)
[2019-05-06] MEDS ORDERED: Naloxone 0.4 MG/ML INJ IVP PRN (17:21)
[2019-05-06] MEDS ORDERED: Acetaminophen 325 MG TABLET PO PRN (17:21)
[2019-05-06 17:22] LABS: Hyaline Casts,Urine Few per lpf (None-Few); Squamous Epithelial Cell,Urine Few per lpf (None-Few)
[2019-05-06 17:23] LABS: Bacteria,Urine Few per hpf (None-Few); RBC,Urine 0-3 per hpf (0-3)
[2019-05-06] MEDS ORDERED: levoFLOXacin 750 MG/150 ML 750 MG/150 ML BAG IVPB SCH ×2 (17:30→22:00)
[2019-05-06] MEDS ORDERED: *HR* Enoxaparin 80 MG/0.8 ML SYRINGE SQ SCH (17:45)
[2019-05-06] MEDS ORDERED: Vancomycin (wt based) 1,000 MG VIAL IVPB SCH (18:00)
[2019-05-06 18:09] LABS: ABG Base Excess -5 mEq/L (-2 to 3); ABG HCO3 22 mEq/L (21-27); ABG Oxygen Saturation 100 % (95-98); ABG PCO2 50 mmHg (35-45); ABG PH 7.25 pH Units (7.32-7.45); ABG PO2 241 mmHg (85-104); ABG TCO2 24 mEq/L (20-26); Blood Gas VT 500 cc
[2019-05-06] MEDS ORDERED: Dextrose Gel 15 GM/37.5 ML TUBE PO PRN ×2 (18:31)
[2019-05-06] MEDS ORDERED: *HR* Dextrose 50 % in Water (Syg) 50 ML SYRINGE IVP PRN (18:31)
[2019-05-06] MEDS ORDERED: D5% in Water 1,000 ML IVC PRN (18:31)
[2019-05-06] MEDS ORDERED: methylPREDNISolone 125 MG/2 ML VIAL IVP ONE (18:47)
[2019-05-06] MEDS ORDERED: Ipratropium/Albuterol Neb 3 ML IH SCH (20:00)
[2019-05-06 20:11] LABS: Estimated Average Glucose 166 mg/dl
[2019-05-06] MEDS: 0.9 % Sodium Chloride 1,000 ML IVC SCH (21:38)
[2019-05-06] MEDS: methylPREDNISolone 125 MG/2 ML VIAL IVP SCH (22:42)
[2019-05-06 23:08] LABS: Adenovirus Not Detected (Not Detect); Coronavirus 229E Not Detected (Not Detect); Coronavirus HKU1 Not Detected (Not Detect); Coronavirus NL63 Not Detected (Not Detect); Coronavirus OC43 Not Detected (Not Detect); Human Metapneumovirus Not Detected (Not Detect)
[2019-05-06 23:09] LABS: Bordetella Pertussis Not Detected (Not Detect); Chlamydophila pneumoniae Not Detected (Not Detect); Human Rhinovirus/Enterovirus DETECTED (Not Detect); Influenza A Subtype 2009 H1 Not Detected (Not Detect); Influenza B Not Detected (Not Detect); Mycoplasma pneumoniae Not Detected (Not Detect); Parainfluenza Virus 1 Not Detected (Not Detect); Parainfluenza Virus 2 Not Detected (Not Detect); Parainfluenza Virus 3 Not Detected (Not Detect); Parainfluenza Virus 4 Not Detected (Not Detect); Respiratory Syncytial Virus Not Detected (Not Detect)
[2019-05-06] MEDS: Levalbuterol Neb 1.25 MG/3 ML IH SCH (23:23)
[2019-05-07] MEDS ORDERED: Insulin LISPRO 300 UNITS/3 ML VIAL SQ SCH
[2019-05-07] MEDS ORDERED: Cefepime HCl 2,000 MG in Water for inj. (sterile) 20 ML IVP SCH
[2019-05-07] MEDS: Insulin LISPRO 300 UNITS/3 ML VIAL SQ SCH ×5 (00:21→21:29)
[2019-05-07 02:56] LABS: Hematocrit 35.3 % (35.3-44.9); Hemoglobin 11.7 g/dL (11.5-15.4); Mean Corpuscular HGB Conc 33.1 g/dL (31.6-35.5); Mean Corpuscular Hemoglobin 35.1 pg (28.0-33.3); Mean Platelet Volume 12.4 fL (9.4-12.4); Red Blood Count 3.33 M/mcL (3.82-4.97); Red Cell Distribution Width 13.2 % (11.5-14.5); White Blood Count 1.6 K/mcL (4.3-11.1)
[2019-05-07 02:57] LABS: INR 1.2; Prothrombin Time 13.4 Seconds (9.4-12.1)
[2019-05-07 03:14] LABS: Calcium 6.5 mg/dL (8.6-10.3); Potassium 4.6 mEq/L (3.5-5.1)
[2019-05-07 03:47] LABS: Platelet Count 69 K/mcL (140-400)
[2019-05-07] MEDS: 0.9 % Sodium Chloride 1,000 ML IVC SCH ×2 (04:47→14:14)
[2019-05-07] MEDS: Levalbuterol Neb 1.25 MG/3 ML IH SCH ×6 (04:48→23:00)
[2019-05-07 05:03] LABS: ABG Base Excess -6 mEq/L (-2 to 3); ABG HCO3 20 mEq/L (21-27); ABG Oxygen Saturation 100 % (95-98); ABG PCO2 40 mmHg (35-45); ABG PH 7.31 pH Units (7.32-7.45); ABG PO2 207 mmHg (85-104); ABG TCO2 21 mEq/L (20-26); Blood Gas Modality BiLevel; Blood Gas VT 500 cc
[2019-05-07] MEDS ORDERED: *HR* Enoxaparin 40 MG/0.4 ML SYRINGE SQ SCH (06:00)
[2019-05-07] MEDS ORDERED: *HR* Heparin 5,000 UNIT/ML VIAL SQ SCH (06:00)
[2019-05-07] MEDS: methylPREDNISolone 125 MG/2 ML VIAL IVP SCH ×3 (08:24→23:22)
[2019-05-07] MEDS: Calcium Gluconate 1gm/50mL 1 GM/50 ML BAG IVPB SCH ×2 (14:13→16:00)
[2019-05-07 15:54] LABS: Folate > 22.3 ng/mL (3.0-16.0); Vitamin B12 270 pg/mL (250-1100)
[2019-05-07] MEDS: Magic Mouthwash 10 ML UD Cup PO SCH (16:55)
[2019-05-07] MEDS: Lidocaine Viscous Oral Soln 15 ML SOLUTION MM PRN (21:57)
[2019-05-08] MEDS: Nystatin SUSP 5 ML UD.LIQ PO SCH ×5 (00:52→21:26)
[2019-05-08] MEDS: *HR* OxyCODONE Immed Rel 5 MG TABLET PO PRN ×2 (00:57→23:34)
[2019-05-08] MEDS: Levalbuterol Neb 1.25 MG/3 ML IH SCH ×5 (03:09→20:25)
[2019-05-08 03:16] LABS: Hematocrit 29.1 % (35.3-44.9); Hemoglobin 10.3 g/dL (11.5-15.4); Mean Corpuscular HGB Conc 35.4 g/dL (31.6-35.5); Mean Corpuscular Hemoglobin 35.8 pg (28.0-33.3); Mean Platelet Volume 12.5 fL (9.4-12.4); Red Blood Count 2.88 M/mcL (3.82-4.97); Red Cell Distribution Width 12.7 % (11.5-14.5)
[2019-05-08 03:17] LABS: Platelet Count 49 K/mcL (140-400)
[2019-05-08 03:18] LABS: VBG Ionized Calcium 0.93 mmol/L (1.15-1.35)
[2019-05-08 03:21] LABS: White Blood Count 0.8 K/mcL (4.3-11.1)
[2019-05-08 03:32] LABS: Magnesium 0.9 mg/dL (1.6-2.6); Phosphorous 3.3 mg/dL (2.7-4.5)
[2019-05-08 03:33] LABS: Calcium 6.7 mg/dL (8.6-10.3)
[2019-05-08] MEDS: Insulin LISPRO 300 UNITS/3 ML VIAL SQ SCH ×4 (08:03→21:14)
[2019-05-08] MEDS: Magic Mouthwash 10 ML UD Cup PO SCH ×3 (08:03→16:08)
[2019-05-08] MEDS: 0.9 % Sodium Chloride 1,000 ML IVC SCH (09:03)
[2019-05-08] MEDS: Cholecalciferol (D-3) 1,000 UNIT (25MCG) TABLET PO SCH (09:10)
[2019-05-08] MEDS: MethylPREDNISolone 40 MG/ML VIAL IVP SCH ×3 (09:10→23:23)
[2019-05-08] MEDS: Calcium Gluconate 1gm/50mL 1 GM/50 ML BAG IVPB SCH ×2 (09:11→10:00)
[2019-05-08] MEDS: Lidocaine Viscous Oral Soln 15 ML SOLUTION MM PRN ×2 (09:11→21:26)
[2019-05-08] MEDS ORDERED: Insulin DETEMIR 100 UNIT/ML X5UNITS SQ ONE (10:44)
[2019-05-08] MEDS: levoFLOXacin 750 MG/150 ML 750 MG/150 ML BAG IVPB SCH (12:33)
[2019-05-08 12:41] LABS: Bilirubin,Urine Small (Negative); Blood,Urine Negative (Negative); Clarity,Urine Cloudy (Clear); Color,Urine Dark Yellow (Yellow); Glucose,Urine (UA) 500 mg/dL (Normal); Ketones,Urine Trace mg/dL (Negative); Leukocyte Esterase,Urine Negative (Negative); Nitrite,Urine Negative (Negative); Protein,Urine Trace mg/dL (Neg-Trace); Specific Gravity,Urine 1.025 (1.010-1.025); Urobilinogen,Urine Normal (Normal)
[2019-05-08 12:45] LABS: Squamous Epithelial Cell,Urine Many per lpf (None-Few); WBC,Urine 15-30 per hpf (0-3)
[2019-05-08 12:47] LABS: Protein/Creatinine Ratio,Urine 0.4 mg/mg (0.00-0.20)
[2019-05-08 13:19] LABS: Granular Casts,Urine Few per lpf (None Seen)
[2019-05-08 13:21] LABS: Bacteria,Urine Few per hpf (None-Few)
[2019-05-08] MEDS: Fluconazole 200 MG/100 ML 200 MG/100 ML BAG IVPB SCH (16:08)
[2019-05-08] MEDS ORDERED: Benzocaine 20% 12 APPL GEL..GRAM. TP PRN (16:24)
[2019-05-08] MEDS ORDERED: Insulin DETEMIR 100 UNIT/ML X5UNITS SQ SCH ×2 (21:00)
[2019-05-08] MEDS: Nystatin POWDER 30 GM BOTTLE TP SCH (21:15)
[2019-05-08] MEDS: Chloraseptic Spray 177 ML BOTTLE MM PRN (23:24)
[2019-05-09] MEDS: Levalbuterol Neb 1.25 MG/3 ML IH SCH ×6 (00:37→19:37)
[2019-05-09 01:03] LABS: Red Cell Distribution Width 12.8 % (11.5-14.5)
[2019-05-09 01:04] LABS: Hematocrit 30.3 % (35.3-44.9); Hemoglobin 10.5 g/dL (11.5-15.4); Mean Corpuscular HGB Conc 34.7 g/dL (31.6-35.5); Mean Corpuscular Hemoglobin 34.7 pg (28.0-33.3); Mean Platelet Volume 11.5 fL (9.4-12.4); Red Blood Count 3.03 M/mcL (3.82-4.97)
[2019-05-09 01:06] LABS: Calcium 7.3 mg/dL (8.6-10.3); Potassium 3.6 mEq/L (3.5-5.1)
[2019-05-09 01:29] LABS: Platelet Count 43 K/mcL (140-400)
[2019-05-09 01:30] LABS: White Blood Count 0.3 K/mcL (4.3-11.1)
[2019-05-09] MEDS: Nystatin POWDER 30 GM BOTTLE TP SCH ×2 (07:53→21:15)
[2019-05-09] MEDS: Nystatin SUSP 5 ML UD.LIQ PO SCH ×4 (07:53→21:15)
[2019-05-09] MEDS: Lidocaine Viscous Oral Soln 15 ML SOLUTION MM PRN (07:53)
[2019-05-09] MEDS: Cholecalciferol (D-3) 1,000 UNIT (25MCG) TABLET PO SCH (07:53)
[2019-05-09] MEDS: Insulin LISPRO 300 UNITS/3 ML VIAL SQ SCH ×6 (07:53→21:15)
[2019-05-09] MEDS: Chloraseptic Spray 177 ML BOTTLE MM PRN ×2 (07:58→11:42)
[2019-05-09] MEDS: *HR* OxyCODONE Immed Rel 5 MG TABLET PO PRN (08:03)
[2019-05-09] MEDS ORDERED: Insulin DETEMIR 100 UNIT/ML X5UNITS SQ ONE (08:55)
[2019-05-09] MEDS: levoFLOXacin 750 MG/150 ML 750 MG/150 ML BAG IVPB SCH (10:15)
[2019-05-09] MEDS ORDERED: Loratadine 10 MG TABLET PO PRN (10:31)
[2019-05-09] MEDS: Folic Acid 1 MG TABLET PO SCH ×3 (11:41→21:15)
[2019-05-09] MEDS: Fluconazole 200 MG/100 ML 200 MG/100 ML BAG IVPB SCH (11:44)
[2019-05-09] MEDS: Clobetasol Propionate 0.05% 15 GM Cream Tube TP SCH ×2 (13:10→21:15)
[2019-05-09] MEDS: MethylPREDNISolone 40 MG/ML VIAL IVP SCH (16:28)
[2019-05-09] MEDS ORDERED: Insulin DETEMIR 100 UNIT/ML X5UNITS SQ SCH (21:00)
[2019-05-10] MEDS: Insulin DETEMIR 100 UNIT/ML X5UNITS SQ SCH ×2 (00:04→21:39)
[2019-05-10] MEDS: Levalbuterol Neb 1.25 MG/3 ML IH SCH ×8 (00:32→22:31)
[2019-05-10 05:25] LABS: Red Cell Distribution Width 12.6 % (11.5-14.5)
[2019-05-10 05:26] LABS: Hematocrit 29.2 % (35.3-44.9); Mean Corpuscular HGB Conc 34.2 g/dL (31.6-35.5); Mean Corpuscular Hemoglobin 34.6 pg (28.0-33.3); Mean Platelet Volume 12.8 fL (9.4-12.4); Red Blood Count 2.89 M/mcL (3.82-4.97)
[2019-05-10] MEDS: MethylPREDNISolone 40 MG/ML VIAL IVP SCH ×2 (05:33→18:29)
[2019-05-10 05:44] LABS: BUN/Creatinine Ratio 49 (6-26); Blood Urea Nitrogen 53 mg/dL (6-20); Calcium 7.3 mg/dL (8.6-10.3); Carbon Dioxide 21 mEq/L (23-29); Chloride 108 mEq/L (98-107); Glucose 247 mg/dL (70-105); Osmolality,Calculated 311 (280-300); Sodium 139 mEq/L (136-145); eGFR For African Americans > 60 (> 60); eGFR For Non-African Americans 53 (> 60)
[2019-05-10 05:58] LABS: White Blood Count 0.3 K/mcL (4.3-11.1)
[2019-05-10 06:00] LABS: Platelet Count 24 K/mcL (140-400)
[2019-05-10] MEDS: Cholecalciferol (D-3) 1,000 UNIT (25MCG) TABLET PO SCH (09:12)
[2019-05-10] MEDS: Nystatin SUSP 5 ML UD.LIQ PO SCH ×4 (09:12→21:40)
[2019-05-10] MEDS: Clobetasol Propionate 0.05% 15 GM Cream Tube TP SCH ×2 (09:12→21:42)
[2019-05-10] MEDS: Insulin LISPRO 300 UNITS/3 ML VIAL SQ SCH ×7 (09:13→21:40)
[2019-05-10] MEDS: Folic Acid 1 MG TABLET PO SCH ×3 (09:13→21:41)
[2019-05-10] MEDS: Lidocaine Viscous Oral Soln 15 ML SOLUTION MM PRN (09:14)
[2019-05-10] MEDS: Nystatin POWDER 30 GM BOTTLE TP SCH ×2 (09:15→21:40)
[2019-05-10] MEDS: levoFLOXacin 750 MG/150 ML 750 MG/150 ML BAG IVPB SCH (10:25)
[2019-05-10] MEDS ORDERED: 0.9 % Sodium Chloride 250 ML ONE (13:53)
[2019-05-10] MEDS ORDERED: Ondansetron 4 MG/2 ML VIAL IVP PRN (15:19)
[2019-05-10] MEDS: Fluconazole 200 MG/100 ML 200 MG/100 ML BAG IVPB SCH (18:28)
[2019-05-11] MEDS: Levalbuterol Neb 1.25 MG/3 ML IH SCH ×6 (03:23→23:30)
[2019-05-11] MEDS: MethylPREDNISolone 40 MG/ML VIAL IVP SCH (06:45)
[2019-05-11 07:39] LABS: Hemoglobin 10.8 g/dL (11.5-15.4); Immature Granulocytes % 7.7 % (0-4); Lymphocytes # 0.2 K/mcL (0.6-4.6); Lymphocytes % 76.9 %; Mean Corpuscular HGB Conc 34.8 g/dL (31.6-35.5); Mean Corpuscular Hemoglobin 34.3 pg (28.0-33.3); Mean Corpuscular Volume 98.4 fL (83.0-100.0); Mean Platelet Volume 11.8 fL (9.4-12.4); Red Blood Count 3.15 M/mcL (3.82-4.97); Red Cell Distribution Width 12.8 % (11.5-14.5); Segmented Neutrophils % 15.4 %
[2019-05-11 07:57] LABS: Neutrophils # 0.1 K/mcL (1.6-8.9)
[2019-05-11 08:00] LABS: Platelet Count 27 K/mcL (140-400); White Blood Count 0.3 K/mcL (4.3-11.1)
[2019-05-11 08:01] LABS: Calcium 7.4 mg/dL (8.6-10.3); Potassium 4.4 mEq/L (3.5-5.1)
[2019-05-11] MEDS: Insulin LISPRO 300 UNITS/3 ML VIAL SQ SCH ×7 (08:27→20:09)
[2019-05-11] MEDS: Nystatin SUSP 5 ML UD.LIQ PO SCH ×4 (08:29→20:13)
[2019-05-11 08:31] LABS: Platelet Estimate Marked Decrease (Normal); Reactive Lymphocytes Present (Not Present)
[2019-05-11] MEDS: Folic Acid 1 MG TABLET PO SCH ×3 (08:31→20:13)
[2019-05-11] MEDS: Cholecalciferol (D-3) 1,000 UNIT (25MCG) TABLET PO SCH (08:31)
[2019-05-11] MEDS: levoFLOXacin 750 MG/150 ML 750 MG/150 ML BAG IVPB SCH (10:36)
[2019-05-11] MEDS: Clobetasol Propionate 0.05% 15 GM Cream Tube TP SCH ×2 (10:41→20:13)
[2019-05-11] MEDS: Nystatin POWDER 30 GM BOTTLE TP SCH ×2 (10:42→20:13)
[2019-05-11] MEDS ORDERED: Furosemide 40 MG/4 ML VIAL IVP ONE (12:43)
[2019-05-11] MEDS: Fluconazole 200 MG/100 ML 200 MG/100 ML BAG IVPB SCH (13:41)
[2019-05-11] MEDS: Insulin DETEMIR 100 UNIT/ML X5UNITS SQ SCH (20:17)
[2019-05-12] MEDS: Levalbuterol Neb 1.25 MG/3 ML IH SCH ×6 (04:03→23:34)
[2019-05-12] MEDS: Insulin LISPRO 300 UNITS/3 ML VIAL SQ SCH ×7 (07:40→21:22)
[2019-05-12] MEDS ORDERED: levoFLOXacin 750 MG/150 ML 750 MG/150 ML BAG IVPB SCH (09:00)
[2019-05-12] MEDS: Nystatin SUSP 5 ML UD.LIQ PO SCH ×3 (09:01→16:20)
[2019-05-12] MEDS: Folic Acid 1 MG TABLET PO SCH ×3 (09:01→21:22)
[2019-05-12] MEDS: Fluconazole 200 MG/100 ML 200 MG/100 ML BAG IVPB SCH (09:01)
[2019-05-12] MEDS: Clobetasol Propionate 0.05% 15 GM Cream Tube TP SCH (09:03)
[2019-05-12] MEDS: Cholecalciferol (D-3) 1,000 UNIT (25MCG) TABLET PO SCH (09:03)
[2019-05-12] MEDS: Nystatin POWDER 30 GM BOTTLE TP SCH ×2 (09:06→21:21)
[2019-05-12 10:01] LABS: Eosinophils % 7.4 %
[2019-05-12 10:03] LABS: Hematocrit 28.1 % (35.3-44.9); Hemoglobin 9.6 g/dL (11.5-15.4); Lymphocytes % 85.2 %; Mean Corpuscular HGB Conc 34.2 g/dL (31.6-35.5); Mean Corpuscular Hemoglobin 34.4 pg (28.0-33.3); Mean Corpuscular Volume 100.7 fL (83.0-100.0); Mean Platelet Volume 10.7 fL (9.4-12.4); Red Blood Count 2.79 M/mcL (3.82-4.97); Red Cell Distribution Width 12.4 % (11.5-14.5); Segmented Neutrophils % 7.4 %
[2019-05-12 10:04] LABS: Lymphocytes # 0.3 K/mcL (0.6-4.6)
[2019-05-12 10:06] LABS: Platelet Count 13 K/mcL (140-400); White Blood Count 0.3 K/mcL (4.3-11.1)
[2019-05-12] MEDS ORDERED: Isovue-370 500 ML BOTTLE IVP ONE (10:21)
[2019-05-12 10:22] LABS: Platelet Estimate Marked Decrease (Normal); Potassium 3.6 mEq/L (3.5-5.1)
[2019-05-12] MEDS ORDERED: 0.9 % Sodium Chloride 1,000 ML IVC SCH (10:30)
[2019-05-12] MEDS ORDERED: 0.9 % Sodium Chloride 250 ML IV ONE (10:50)
[2019-05-12] MEDS ORDERED: 0.9 % Sodium Chloride 250 ML ONE ×2 (11:31→11:32)
[2019-05-12] MEDS: Cefepime HCl 2,000 MG in 0.9 % Sodium Chloride Mini Bag 100 ML IVPB SCH ×2 (13:17→17:48)
[2019-05-12] MEDS: 0.9 % Sodium Chloride 1,000 ML IVC SCH (13:18)
[2019-05-12] MEDS: MetroNIDAZOLE 500 MG/100 ML 500 MG/100 ML BAG IVPB SCH ×2 (13:37→17:48)
[2019-05-12] MEDS ORDERED: [UNRECOGNIZED DRUG - OTHER] IV SCH (15:45)
[2019-05-12] MEDS ORDERED: Cyanocobalamin (B-12) 1,000 MCG/ML VIAL SQ ONE (16:11)
[2019-05-12] MEDS ORDERED: LEUCOVORIN CALCIUM IVPB SCH ×2 (18:00)
[2019-05-12] MEDS ORDERED: SODIUM CHLORIDE 0.9% IVPB SCH ×2 (18:00)
[2019-05-12] MEDS ORDERED: LEUCOVORIN CALCIUM IVPB ONE (18:00)
[2019-05-12] MEDS ORDERED: SODIUM CHLORIDE 0.9% IVPB ONE (18:00)
[2019-05-12 18:28] LABS: Red Cell Distribution Width 12.6 % (11.5-14.5)
[2019-05-12 18:30] LABS: Hematocrit 23.8 % (35.3-44.9); Hemoglobin 8.1 g/dL (11.5-15.4); Mean Corpuscular Hemoglobin 34.3 pg (28.0-33.3); Mean Corpuscular Volume 100.8 fL (83.0-100.0); Mean Platelet Volume 10.2 fL (9.4-12.4); Red Blood Count 2.36 M/mcL (3.82-4.97)
[2019-05-12 18:38] LABS: Platelet Count 18 K/mcL (140-400); White Blood Count 0.2 K/mcL (4.3-11.1)
[2019-05-12 18:51] LABS: HSV 1 DNA Not Detected (Not Detect); HSV 2 DNA Not Detected (Not Detect)
[2019-05-12 18:56] LABS: Albumin 2.6 g/dL (3.5-5.7); Bilirubin,Direct 0.5 mg/dL (0.0-0.2); Bilirubin,Indirect 0.7 mg/dL (0.0-1.0); Bilirubin,Total 1.2 mg/dL (0.3-1.0); Globulin 2.5 g/dL (2.4-3.5); Total Protein 5.1 g/dL (6.4-8.9)
[2019-05-12 19:40] LABS: INR 1.6; Prothrombin Time 18.1 Seconds (9.4-12.1)
[2019-05-12] MEDS: Insulin DETEMIR 100 UNIT/ML X5UNITS SQ SCH (21:21)
[2019-05-12] MEDS: dexAMETHasone 0.5 MG/5 ML UDC PO SCH (22:11)
[2019-05-13] MEDS: Cefepime HCl 2,000 MG in 0.9 % Sodium Chloride Mini Bag 100 ML IVPB SCH ×3 (00:35→16:26)
[2019-05-13] MEDS: SODIUM CHLORIDE 0.9% IVPB SCH ×4 (00:36→17:38)
[2019-05-13] MEDS: LEUCOVORIN CALCIUM IVPB SCH ×4 (00:36→17:38)
[2019-05-13] MEDS: MetroNIDAZOLE 500 MG/100 ML 500 MG/100 ML BAG IVPB SCH ×3 (00:37→16:26)
[2019-05-13] MEDS: Levalbuterol Neb 1.25 MG/3 ML IH SCH ×6 (03:43→23:44)
[2019-05-13] MEDS: 0.9 % Sodium Chloride 1,000 ML IVC SCH (03:54)
[2019-05-13 04:39] LABS: Hematocrit 23.9 % (35.3-44.9); Hemoglobin 8.2 g/dL (11.5-15.4); Mean Corpuscular HGB Conc 34.3 g/dL (31.6-35.5); Mean Corpuscular Hemoglobin 34.9 pg (28.0-33.3); Mean Corpuscular Volume 101.7 fL (83.0-100.0); Red Blood Count 2.35 M/mcL (3.82-4.97); Red Cell Distribution Width 12.5 % (11.5-14.5)
[2019-05-13 04:43] LABS: Platelet Count 10 K/mcL (140-400); White Blood Count 0.1 K/mcL (4.3-11.1)
[2019-05-13 04:46] LABS: Albumin 2.6 g/dL (3.5-5.7); Bilirubin,Total 1.3 mg/dL (0.3-1.0); Calcium 6.6 mg/dL (8.6-10.3); Globulin 2.7 g/dL (2.4-3.5); Potassium 3.8 mEq/L (3.5-5.1); Total Protein 5.3 g/dL (6.4-8.9)
[2019-05-13 05:24] LABS: Lymphocytes # 0.1 K/mcL (0.6-4.6)
[2019-05-13 05:25] LABS: Platelet Estimate Marked Decrease (Normal)
[2019-05-13] MEDS ORDERED: 0.9 % Sodium Chloride 1,000 ML ONE (05:43)
[2019-05-13] MEDS: Insulin LISPRO 300 UNITS/3 ML VIAL SQ SCH ×7 (08:19→20:14)
[2019-05-13] MEDS: Folic Acid 1 MG TABLET PO SCH ×3 (08:20→20:15)
[2019-05-13] MEDS: dexAMETHasone 0.5 MG/5 ML UDC PO SCH ×3 (08:20→20:15)
[2019-05-13] MEDS: Cholecalciferol (D-3) 1,000 UNIT (25MCG) TABLET PO SCH (08:21)
[2019-05-13] MEDS: Nystatin POWDER 30 GM BOTTLE TP SCH ×2 (08:21→22:12)
[2019-05-13] MEDS ORDERED: Fluconazole 40 MG/ML UDC PO SCH (09:00)
[2019-05-13] MEDS ORDERED: Fluconazole 100 MG TABLET PO SCH (09:00)
[2019-05-13] MEDS: Fluconazole 200 MG/100 ML 200 MG/100 ML BAG IVPB SCH (10:45)
[2019-05-13] MEDS ORDERED: 0.9 % Sodium Chloride 250 ML ONE (10:53)
[2019-05-13] MEDS ORDERED: Aminoglycoside Consult 1 EACH MC ONE (13:29)
[2019-05-13 16:53] LABS: Hematocrit 24.9 % (35.3-44.9); Hemoglobin 8.6 g/dL (11.5-15.4); Mean Corpuscular HGB Conc 34.5 g/dL (31.6-35.5); Mean Corpuscular Volume 98.4 fL (83.0-100.0); Mean Platelet Volume 9.9 fL (9.4-12.4); Red Blood Count 2.53 M/mcL (3.82-4.97); Red Cell Distribution Width 13.2 % (11.5-14.5)
[2019-05-13] MEDS ORDERED: Acetaminophen IV 1,000 MG/100 ML INFUS..BTL IVPB ONE (17:01)
[2019-05-13 17:07] LABS: Platelet Count 29 K/mcL (140-400); White Blood Count 0.1 K/mcL (4.3-11.1)
[2019-05-13 17:30] LABS: Lymphocytes # 0.1 K/mcL (0.6-4.6)
[2019-05-13] MEDS: Insulin DETEMIR 100 UNIT/ML X5UNITS SQ SCH (20:14)
[2019-05-14] MEDS: Cefepime HCl 2,000 MG in 0.9 % Sodium Chloride Mini Bag 100 ML IVPB SCH ×3 (00:57→15:54)
[2019-05-14] MEDS: LEUCOVORIN CALCIUM IVPB SCH ×2 (01:00→05:25)
[2019-05-14] MEDS: SODIUM CHLORIDE 0.9% IVPB SCH ×2 (01:00→05:25)
[2019-05-14] MEDS: MetroNIDAZOLE 500 MG/100 ML 500 MG/100 ML BAG IVPB SCH ×3 (01:04→15:55)
[2019-05-14] MEDS: Levalbuterol Neb 1.25 MG/3 ML IH SCH ×5 (03:43→15:56)
[2019-05-14 04:09] LABS: Eosinophils % 9.1 %; Lymphocytes # 0.1 K/mcL (0.6-4.6); Lymphocytes % 81.8 %
[2019-05-14 04:10] LABS: Hematocrit 23.7 % (35.3-44.9); Hemoglobin 8.2 g/dL (11.5-15.4); Mean Corpuscular HGB Conc 34.6 g/dL (31.6-35.5); Mean Corpuscular Volume 98.3 fL (83.0-100.0); Mean Platelet Volume 10.4 fL (9.4-12.4); Red Blood Count 2.41 M/mcL (3.82-4.97); Red Cell Distribution Width 13.8 % (11.5-14.5); Segmented Neutrophils % 9.1 %
[2019-05-14 04:19] LABS: Platelet Count 22 K/mcL (140-400); White Blood Count 0.1 K/mcL (4.3-11.1)
[2019-05-14 04:29] LABS: Alanine Aminotransferase 11 Units/L (7-52); Albumin 2.4 g/dL (3.5-5.7); Albumin/Globulin Ratio 0.9 (1.1-2.2); Alkaline Phosphatase 46 Units/L (34-104); Aspartate Amino Transferase 6 Units/L (13-39); BUN/Creatinine Ratio 37 (6-26); Blood Urea Nitrogen 34 mg/dL (6-20); Calcium 6.5 mg/dL (8.6-10.3); Carbon Dioxide 21 mEq/L (23-29); Chloride 111 mEq/L (98-107); Globulin 2.6 g/dL (2.4-3.5); Glucose 193 mg/dL (70-105); Osmolality,Calculated 305 (280-300); Potassium 3.2 mEq/L (3.5-5.1); Sodium 141 mEq/L (136-145); Vancomycin,Trough 18 mcg/mL (5-10); eGFR For African Americans > 60 (> 60); eGFR For Non-African Americans > 60 (> 60)
[2019-05-14] MEDS ORDERED: Acetaminophen IV 500 MG/50 ML INFUS..BTL IVPB ONE (04:37)
[2019-05-14 05:02] LABS: Platelet Estimate Marked Decrease (Normal)
[2019-05-14] MEDS: Fluconazole 200 MG/100 ML 200 MG/100 ML BAG IVPB SCH (08:09)
[2019-05-14] MEDS: Insulin LISPRO 300 UNITS/3 ML VIAL SQ SCH ×4 (08:10→11:43)
[2019-05-14] MEDS: Nystatin POWDER 30 GM BOTTLE TP SCH (08:50)
[2019-05-14] MEDS: Folic Acid 1 MG TABLET PO SCH ×2 (09:46→15:55)
[2019-05-14] MEDS: Lidocaine Viscous Oral Soln 15 ML SOLUTION MM PRN (09:46)
[2019-05-14] MEDS: dexAMETHasone 0.5 MG/5 ML UDC PO SCH ×2 (09:46→15:59)
[2019-05-14] MEDS: Cholecalciferol (D-3) 1,000 UNIT (25MCG) TABLET PO SCH (09:47)
[2019-05-14] MEDS ORDERED: SODIUM CHLORIDE 0.9% IVPB SCH (12:00)
[2019-05-14] MEDS ORDERED: LEUCOVORIN CALCIUM IVPB SCH (12:00)
[2019-05-14 16:25] VITALS: BP 156/83
[2019-05-14] MEDS ORDERED: Aminoglycoside Consult 1 EACH MC ONE (17:59)
== END 2019-05-14 18:00 | disposition short-term general hospital (02) | DRG 720 ==
LOC: EMEROOARM 14:04 → SUATTDRO 20:06 → 2NNU 20:06 → 2ANU 05-11 14:59
PROVIDERS: ADMIT Internal Medicine; ATTEND Internal Medicine

== ENCOUNTER 2019-06-11 16:01 | Inpatient (IN) ==
[2019-06-11 16:54] LABS: Basophils % 0.4 %; Eosinophils % 0.6 %; Hematocrit 30.2 % (35.3-44.9); Hemoglobin 9.6 g/dL (11.5-15.4); Immature Granulocytes % 0.7 % (0-4); Lymphocytes # 1.7 K/mcL (0.6-4.6); Lymphocytes % 25.6 %; Mean Corpuscular HGB Conc 31.8 g/dL (31.6-35.5); Mean Corpuscular Hemoglobin 34.4 pg (28.0-33.3); Mean Platelet Volume 10.9 fL (9.4-12.4); Monocytes # 0.8 K/mcL (0.0-1.3); Monocytes % 11.5 %; Neutrophils # 4.2 K/mcL (1.6-8.9); Platelet Count 179 K/mcL (140-400); Red Blood Count 2.79 M/mcL (3.82-4.97); Red Cell Distribution Width 18.6 % (11.5-14.5); Segmented Neutrophils % 61.2 %; White Blood Count 6.8 K/mcL (4.3-11.1)
[2019-06-11 16:55] LABS: Mean Corpuscular Volume 108.2 fL (83.0-100.0)
[2019-06-11 17:08] LABS: INR 1.2; Prothrombin Time 13.2 Seconds (9.4-12.1)
[2019-06-11 17:10] LABS: Activated Partial Thrombo Time 32.1 Seconds (26.0-36.0)
[2019-06-11 17:50] LABS: BUN/Creatinine Ratio 7 (6-26); Blood Urea Nitrogen 6 mg/dL (6-20); Carbon Dioxide 27 mEq/L (23-29); Chloride 101 mEq/L (98-107); Glucose 180 mg/dL (70-105); Osmolality,Calculated 290 (280-300); Sodium 139 mEq/L (136-145); Troponin I < 0.03 ng/mL (< 0.04); eGFR For African Americans > 60 (> 60); eGFR For Non-African Americans > 60 (> 60)
[2019-06-11] MEDS ORDERED: Potassium Chloride Elixir 20 MEQ/15 ML UDC PO ONE (17:59)
[2019-06-11 18:10] LABS: Thyroid Stimulating Hormone 2.358 mcIU/mL (0.340-5.600); Triiodothyronine (T3) Free 3.24 pg/mL (2.50-3.90)
[2019-06-11 18:17] LABS: Albumin 2.4 g/dL (3.5-5.7)
[2019-06-11] MEDS ORDERED: Calcium Gluconate 1gm/50mL 1 GM/50 ML BAG IVPB ONE (18:27)
[2019-06-11] MEDS: Calcium Gluconate 1gm/50mL 1 GM/50 ML BAG IVPB SCH ×2 (20:46→22:25)
[2019-06-11] MEDS ORDERED: Ondansetron ODT 4 MG TAB.RAPDIS SL PRN (20:52)
[2019-06-11] MEDS ORDERED: Naloxone 0.4 MG/ML INJ IVP PRN (20:52)
[2019-06-11] MEDS ORDERED: Ipratropium/Albuterol Neb 3 ML IH PRN (22:02)
[2019-06-11] MEDS ORDERED: Dextrose Gel 15 GM/37.5 ML TUBE PO PRN ×2 (22:03)
[2019-06-11] MEDS ORDERED: *HR* Dextrose 50 % in Water (Syg) 50 ML SYRINGE IVP PRN (22:03)
[2019-06-11] MEDS ORDERED: D5% in Water 1,000 ML IVC PRN (22:03)
[2019-06-11] MEDS ORDERED: *HR* OxyCODONE Immed Rel 15 MG TABLET PO PRN (23:15)
[2019-06-12] MEDS: Calcium Gluconate 1gm/50mL 1 GM/50 ML BAG IVPB SCH ×5 (00:07→20:31)
[2019-06-12] MEDS: Albumin 25% 25gram/100mL 25 GM/100 ML IV.SOLN IVC SCH ×4 (01:04→05:53)
[2019-06-12 04:53] LABS: Basophils % 0.5 %; Eosinophils % 0.7 %; Hemoglobin 8.4 g/dL (11.5-15.4); Immature Granulocytes % 0.3 % (0-4); Lymphocytes # 1.7 K/mcL (0.6-4.6); Lymphocytes % 30.1 %; Mean Corpuscular HGB Conc 32.3 g/dL (31.6-35.5); Mean Corpuscular Hemoglobin 34.6 pg (28.0-33.3); Mean Platelet Volume 11.6 fL (9.4-12.4); Monocytes # 0.7 K/mcL (0.0-1.3); Monocytes % 12.8 %; Neutrophils # 3.2 K/mcL (1.6-8.9); Platelet Count 151 K/mcL (140-400); Red Blood Count 2.43 M/mcL (3.82-4.97); Red Cell Distribution Width 18.4 % (11.5-14.5); Segmented Neutrophils % 55.6 %; White Blood Count 5.8 K/mcL (4.3-11.1)
[2019-06-12 05:13] LABS: BUN/Creatinine Ratio 7 (6-26); Blood Urea Nitrogen 5 mg/dL (6-20); Calcium 6.6 mg/dL (8.6-10.3); Carbon Dioxide 27 mEq/L (23-29); Chloride 104 mEq/L (98-107); Glucose 167 mg/dL (70-105); Osmolality,Calculated 289 (280-300); Potassium 3.3 mEq/L (3.5-5.1); Sodium 139 mEq/L (136-145); eGFR For African Americans > 60 (> 60); eGFR For Non-African Americans > 60 (> 60)
[2019-06-12 05:14] LABS: Magnesium 0.7 mg/dL (1.6-2.6); Phosphorous 3.9 mg/dL (2.7-4.5)
[2019-06-12] MEDS: *HR* Heparin 5,000 UNIT/ML VIAL SQ SCH ×2 (05:21→17:00)
[2019-06-12] MEDS ORDERED: Perflutren Lipid Microsphere 1.3 ML in 0.9 % Sodium Chloride 8.7 ML IVP ONE (07:49)
[2019-06-12] MEDS: Propranolol LA (24 HR) 60 MG CAP.SA.24H PO SCH ×2 (09:48→21:24)
[2019-06-12] MEDS: Nystatin POWDER 30 GM BOTTLE TP SCH ×2 (09:51→21:31)
[2019-06-12] MEDS: Insulin LISPRO 300 UNITS/3 ML VIAL SQ SCH ×5 (09:53→17:00)
[2019-06-12] MEDS ORDERED: Calcium Gluconate 1gm/50mL 1 GM/50 ML BAG IVPB ONE (12:02)
[2019-06-12] MEDS ORDERED: Albumin 25% 25gram/100mL 25 GM/100 ML IV.SOLN IVPB ONE (12:03)
[2019-06-12] MEDS ORDERED: Furosemide 40 MG/4 ML VIAL IVP ONE (13:30)
[2019-06-12 16:59] LABS: BUN/Creatinine Ratio 5 (6-26); Blood Urea Nitrogen 4 mg/dL (6-20); Calcium 7.2 mg/dL (8.6-10.3); Carbon Dioxide 26 mEq/L (23-29); Chloride 102 mEq/L (98-107); Glucose 221 mg/dL (70-105); Magnesium 1.3 mg/dL (1.6-2.6); Osmolality,Calculated 292 (280-300); Sodium 139 mEq/L (136-145); eGFR For African Americans > 60 (> 60); eGFR For Non-African Americans > 60 (> 60)
[2019-06-12] MEDS ORDERED: Insulin DETEMIR 100 UNIT/ML X5UNITS SQ SCH (21:00)
[2019-06-12] MEDS: QUEtiapine Fumarate 25 MG TABLET PO SCH (21:25)
[2019-06-13 00:34] LABS: Basophils % 0.4 %; Eosinophils % 0.2 %; Immature Granulocytes % 0.4 % (0-4); Lymphocytes # 0.8 K/mcL (0.6-4.6); Lymphocytes % 14.2 %; Mean Corpuscular HGB Conc 30.8 g/dL (31.6-35.5); Mean Corpuscular Hemoglobin 34.2 pg (28.0-33.3); Mean Corpuscular Volume 111.1 fL (83.0-100.0); Mean Platelet Volume 10.9 fL (9.4-12.4); Monocytes # 0.5 K/mcL (0.0-1.3); Monocytes % 9.7 %; Platelet Count 151 K/mcL (140-400); Red Blood Count 2.34 M/mcL (3.82-4.97); Segmented Neutrophils % 75.1 %; White Blood Count 5.3 K/mcL (4.3-11.1)
[2019-06-13 00:51] LABS: BUN/Creatinine Ratio 5 (6-26); Blood Urea Nitrogen 4 mg/dL (6-20); Calcium 7.3 mg/dL (8.6-10.3); Carbon Dioxide 33 mEq/L (23-29); Chloride 100 mEq/L (98-107); Glucose 249 mg/dL (70-105); Magnesium 1.5 mg/dL (1.6-2.6); Osmolality,Calculated 293 (280-300); Phosphorous 3.2 mg/dL (2.7-4.5); Potassium 3.6 mEq/L (3.5-5.1); Sodium 139 mEq/L (136-145); eGFR For African Americans > 60 (> 60); eGFR For Non-African Americans > 60 (> 60)
[2019-06-13 00:55] LABS: Macrocytosis Present (Not Present); Platelet Estimate Slight Decrease (Normal)
[2019-06-13] MEDS: *HR* Heparin 5,000 UNIT/ML VIAL SQ SCH ×2 (05:20→18:13)
[2019-06-13] MEDS: Gabapentin 400 MG CAPSULE PO SCH ×3 (07:59→21:30)
[2019-06-13] MEDS ORDERED: Albuterol 2.5 MG/3 ML NEBULIZER IH PRN (08:00)
[2019-06-13] MEDS: Insulin LISPRO 300 UNITS/3 ML VIAL SQ SCH ×6 (08:11→18:13)
[2019-06-13] MEDS: Cholecalciferol (D-3) 1,000 UNIT (25MCG) TABLET PO SCH (08:13)
[2019-06-13] MEDS: Nystatin POWDER 30 GM BOTTLE TP SCH (08:13)
[2019-06-13] MEDS: Folic Acid 1 MG TABLET PO SCH (08:13)
[2019-06-13 08:48] LABS: ABG Base Excess 11 mEq/L (-2 to 3); ABG HCO3 36 mEq/L (21-27); ABG Oxygen Saturation 92 % (95-98); ABG PCO2 52 mmHg (35-45); ABG PH 7.46 pH Units (7.32-7.45); ABG PO2 63 mmHg (85-104); ABG TCO2 38 mEq/L (20-26)
[2019-06-13] MEDS ORDERED: NON-FORMULARY MEDICATION 1 EACH EACH (Calcium Carbonate/Vitamin D3 [Calcium 600-Vit D3 400 PO SCH (09:00)
[2019-06-13] MEDS: Propranolol LA (24 HR) 60 MG CAP.SA.24H PO SCH ×2 (09:33→21:30)
[2019-06-13] MEDS ORDERED: Ipratropium/Albuterol Neb 3 ML IH PRN (12:00)
[2019-06-13] MEDS: QUEtiapine Fumarate 25 MG TABLET PO SCH (21:30)
[2019-06-13] MEDS: Insulin DETEMIR 100 UNIT/ML X5UNITS SQ SCH (21:31)
[2019-06-14 02:50] LABS: Hematocrit 26.3 % (35.3-44.9); Red Cell Distribution Width 17.5 % (11.5-14.5)
[2019-06-14 02:54] LABS: Basophils % 0.1 %; Eosinophils % 0.3 %; Hemoglobin 8.1 g/dL (11.5-15.4); Immature Granulocytes % 0.7 % (0-4); Lymphocytes # 1.1 K/mcL (0.6-4.6); Lymphocytes % 15.1 %; Mean Corpuscular HGB Conc 30.8 g/dL (31.6-35.5); Mean Corpuscular Hemoglobin 34.2 pg (28.0-33.3); Mean Platelet Volume 11.4 fL (9.4-12.4); Monocytes # 0.6 K/mcL (0.0-1.3); Monocytes % 8.1 %; Neutrophils # 5.4 K/mcL (1.6-8.9); Platelet Count 169 K/mcL (140-400); Red Blood Count 2.37 M/mcL (3.82-4.97); Segmented Neutrophils % 75.7 %; White Blood Count 7.1 K/mcL (4.3-11.1)
[2019-06-14 03:12] LABS: BUN/Creatinine Ratio 8 (6-26); Blood Urea Nitrogen 6 mg/dL (6-20); Calcium 7.5 mg/dL (8.6-10.3); Carbon Dioxide 34 mEq/L (23-29); Chloride 99 mEq/L (98-107); Glucose 235 mg/dL (70-105); Magnesium 1.6 mg/dL (1.6-2.6); Osmolality,Calculated 295 (280-300); Phosphorous 2.8 mg/dL (2.7-4.5); Potassium 3.6 mEq/L (3.5-5.1); Sodium 140 mEq/L (136-145); eGFR For African Americans > 60 (> 60); eGFR For Non-African Americans > 60 (> 60)
[2019-06-14 05:02] LABS: Platelet Estimate Normal (Normal)
[2019-06-14 05:03] LABS: Anisocytosis 1+ (Not Present); Basophilic Stippling 1+ (Not Present); Macrocytosis Present (Not Present)
[2019-06-14] MEDS: *HR* Heparin 5,000 UNIT/ML VIAL SQ SCH ×2 (05:44→17:34)
[2019-06-14] MEDS: Acetaminophen 325 MG TABLET PO PRN (06:10)
[2019-06-14] MEDS: Insulin LISPRO 300 UNITS/3 ML VIAL SQ SCH ×6 (08:13→17:36)
[2019-06-14] MEDS: Folic Acid 1 MG TABLET PO SCH (08:14)
[2019-06-14] MEDS: Cholecalciferol (D-3) 1,000 UNIT (25MCG) TABLET PO SCH (08:14)
[2019-06-14] MEDS: Gabapentin 400 MG CAPSULE PO SCH ×2 (08:15→16:36)
[2019-06-14] MEDS: Propranolol LA (24 HR) 60 MG CAP.SA.24H PO SCH ×2 (09:58→22:16)
[2019-06-14] MEDS: Magnesium Oxide 400 MG TABLET PO SCH ×2 (09:58→22:17)
[2019-06-14] MEDS: QUEtiapine Fumarate 25 MG TABLET PO SCH (22:16)
[2019-06-14] MEDS: Gabapentin 300 MG CAPSULE PO SCH (22:17)
[2019-06-14] MEDS: Insulin DETEMIR 100 UNIT/ML X5UNITS SQ SCH (22:17)
[2019-06-15 05:55] LABS: Hematocrit 27.1 % (35.3-44.9); Hemoglobin 8.4 g/dL (11.5-15.4); Mean Corpuscular Hemoglobin 34.3 pg (28.0-33.3); Mean Corpuscular Volume 110.6 fL (83.0-100.0); Platelet Count 155 K/mcL (140-400); Red Blood Count 2.45 M/mcL (3.82-4.97); Red Cell Distribution Width 17.2 % (11.5-14.5); White Blood Count 6.7 K/mcL (4.3-11.1)
[2019-06-15 06:13] LABS: BUN/Creatinine Ratio 15 (6-26); Blood Urea Nitrogen 11 mg/dL (6-20); Calcium 7.7 mg/dL (8.6-10.3); Carbon Dioxide 32 mEq/L (23-29); Chloride 100 mEq/L (98-107); Glucose 238 mg/dL (70-105); Osmolality,Calculated 295 (280-300); Potassium 3.7 mEq/L (3.5-5.1); Sodium 139 mEq/L (136-145); eGFR For African Americans > 60 (> 60); eGFR For Non-African Americans > 60 (> 60)
[2019-06-15] MEDS: *HR* Heparin 5,000 UNIT/ML VIAL SQ SCH ×2 (06:16→16:43)
[2019-06-15] MEDS: Cholecalciferol (D-3) 1,000 UNIT (25MCG) TABLET PO SCH (09:41)
[2019-06-15] MEDS: Gabapentin 300 MG CAPSULE PO SCH ×2 (09:41→22:27)
[2019-06-15] MEDS: Propranolol LA (24 HR) 60 MG CAP.SA.24H PO SCH ×2 (09:41→22:28)
[2019-06-15] MEDS: Magnesium Oxide 400 MG TABLET PO SCH ×2 (09:41→22:28)
[2019-06-15] MEDS: Folic Acid 1 MG TABLET PO SCH (09:41)
[2019-06-15] MEDS: Insulin LISPRO 300 UNITS/3 ML VIAL SQ SCH ×6 (09:42→16:44)
[2019-06-15] MEDS: QUEtiapine Fumarate 25 MG TABLET PO SCH (22:27)
[2019-06-15] MEDS: Insulin DETEMIR 100 UNIT/ML X5UNITS SQ SCH (22:28)
[2019-06-16] MEDS: *HR* Heparin 5,000 UNIT/ML VIAL SQ SCH ×2 (06:09→17:33)
[2019-06-16] MEDS: Insulin LISPRO 300 UNITS/3 ML VIAL SQ SCH ×6 (09:11→17:34)
[2019-06-16] MEDS: Gabapentin 300 MG CAPSULE PO SCH ×2 (09:12→20:40)
[2019-06-16] MEDS: Propranolol LA (24 HR) 60 MG CAP.SA.24H PO SCH ×2 (09:12→20:45)
[2019-06-16] MEDS: Magnesium Oxide 400 MG TABLET PO SCH ×2 (09:12→20:45)
[2019-06-16] MEDS: Folic Acid 1 MG TABLET PO SCH (09:13)
[2019-06-16] MEDS: Cholecalciferol (D-3) 1,000 UNIT (25MCG) TABLET PO SCH (09:13)
[2019-06-16] MEDS: Insulin DETEMIR 100 UNIT/ML X5UNITS SQ SCH ×2 (09:13→20:46)
[2019-06-16] MEDS: QUEtiapine Fumarate 25 MG TABLET PO SCH (20:45)
[2019-06-17 02:00] LABS: Hematocrit 25.9 % (35.3-44.9); Hemoglobin 8.2 g/dL (11.5-15.4); Mean Corpuscular HGB Conc 31.7 g/dL (31.6-35.5); Mean Corpuscular Hemoglobin 34.7 pg (28.0-33.3); Mean Corpuscular Volume 109.7 fL (83.0-100.0); Mean Platelet Volume 11.1 fL (9.4-12.4); Platelet Count 147 K/mcL (140-400); Red Blood Count 2.36 M/mcL (3.82-4.97); White Blood Count 5.6 K/mcL (4.3-11.1)
[2019-06-17 02:23] LABS: BUN/Creatinine Ratio 24 (6-26); Blood Urea Nitrogen 19 mg/dL (6-20); Carbon Dioxide 28 mEq/L (23-29); Chloride 100 mEq/L (98-107); Glucose 329 mg/dL (70-105); Osmolality,Calculated 293 (280-300); Potassium 4.1 mEq/L (3.5-5.1); Sodium 134 mEq/L (136-145); eGFR For African Americans > 60 (> 60); eGFR For Non-African Americans > 60 (> 60)
[2019-06-17] MEDS: *HR* Heparin 5,000 UNIT/ML VIAL SQ SCH ×2 (06:43→18:04)
[2019-06-17] MEDS: Cholecalciferol (D-3) 1,000 UNIT (25MCG) TABLET PO SCH (08:39)
[2019-06-17] MEDS: Propranolol LA (24 HR) 60 MG CAP.SA.24H PO SCH ×2 (08:39→21:32)
[2019-06-17] MEDS: Insulin LISPRO 300 UNITS/3 ML VIAL SQ SCH ×6 (08:39→18:03)
[2019-06-17] MEDS: Magnesium Oxide 400 MG TABLET PO SCH ×2 (08:39→21:32)
[2019-06-17] MEDS: Gabapentin 300 MG CAPSULE PO SCH ×2 (08:40→21:32)
[2019-06-17] MEDS: Folic Acid 1 MG TABLET PO SCH (08:40)
[2019-06-17] MEDS: Insulin DETEMIR 100 UNIT/ML X5UNITS SQ SCH ×2 (08:43→21:31)
[2019-06-17] MEDS: QUEtiapine Fumarate 25 MG TABLET PO SCH (21:32)
[2019-06-18] MEDS: Acetaminophen 325 MG TABLET PO PRN (02:21)
[2019-06-18] MEDS: *HR* Heparin 5,000 UNIT/ML VIAL SQ SCH (05:34)
[2019-06-18 05:48] LABS: Hematocrit 27.1 % (35.3-44.9); Hemoglobin 8.6 g/dL (11.5-15.4); Mean Corpuscular HGB Conc 31.7 g/dL (31.6-35.5); Mean Corpuscular Hemoglobin 35.1 pg (28.0-33.3); Mean Corpuscular Volume 110.6 fL (83.0-100.0); Mean Platelet Volume 11.7 fL (9.4-12.4); Platelet Count 168 K/mcL (140-400); Red Blood Count 2.45 M/mcL (3.82-4.97); White Blood Count 5.5 K/mcL (4.3-11.1)
[2019-06-18 06:07] LABS: BUN/Creatinine Ratio 36 (6-26); Blood Urea Nitrogen 27 mg/dL (6-20); Calcium 8.2 mg/dL (8.6-10.3); Carbon Dioxide 28 mEq/L (23-29); Chloride 97 mEq/L (98-107); Glucose 391 mg/dL (70-105); Osmolality,Calculated 301 (280-300); Potassium 4.1 mEq/L (3.5-5.1); Sodium 135 mEq/L (136-145); eGFR For African Americans > 60 (> 60); eGFR For Non-African Americans > 60 (> 60)
[2019-06-18] MEDS: Insulin LISPRO 300 UNITS/3 ML VIAL SQ SCH ×4 (08:14→12:06)
[2019-06-18] MEDS: Cholecalciferol (D-3) 1,000 UNIT (25MCG) TABLET PO SCH (08:15)
[2019-06-18] MEDS: Magnesium Oxide 400 MG TABLET PO SCH (08:15)
[2019-06-18] MEDS: Folic Acid 1 MG TABLET PO SCH (08:15)
[2019-06-18] MEDS: Insulin DETEMIR 100 UNIT/ML X5UNITS SQ SCH (08:15)
[2019-06-18] MEDS: Gabapentin 300 MG CAPSULE PO SCH (08:15)
[2019-06-18] MEDS: Propranolol LA (24 HR) 60 MG CAP.SA.24H PO SCH (08:15)
[2019-06-18 11:59] VITALS: BP 148/77
== END 2019-06-18 15:15 | disposition home health service (06) | DRG 425 ==
LOC: EMEROOARM 16:01 → 3BNU 16:01 → SUATTDRO 19:01 → 3BNU 19:04
PROVIDERS: ADMIT Internal Medicine; ATTEND Internal Medicine

== ENCOUNTER 2019-07-16 08:50 | Inpatient (IN) ==
[2019-07-16 10:12] LABS: Prothrombin Time 11.3 Seconds (9.4-12.1)
[2019-07-16 10:13] LABS: Basophils % 0.5 %; Eosinophils # 0.3 K/mcL (0.0-0.6); Eosinophils % 3.4 %; Hematocrit 39.1 % (35.3-44.9); Hemoglobin 12.3 g/dL (11.5-15.4); Immature Granulocytes % 0.5 % (0-4); Lymphocytes # 2.2 K/mcL (0.6-4.6); Mean Corpuscular HGB Conc 31.5 g/dL (31.6-35.5); Mean Corpuscular Hemoglobin 34.4 pg (28.0-33.3); Mean Corpuscular Volume 109.2 fL (83.0-100.0); Mean Platelet Volume 10.1 fL (9.4-12.4); Monocytes # 0.9 K/mcL (0.0-1.3); Monocytes % 9.9 %; Neutrophils # 5.2 K/mcL (1.6-8.9); Platelet Count 186 K/mcL (140-400); Red Blood Count 3.58 M/mcL (3.82-4.97); Red Cell Distribution Width 13.4 % (11.5-14.5); Segmented Neutrophils % 60.7 %; White Blood Count 8.6 K/mcL (4.3-11.1)
[2019-07-16 10:14] LABS: Activated Partial Thrombo Time 31.4 Seconds (26.0-36.0)
[2019-07-16 10:21] LABS: VBG HCO3 28 mEq/L (21-27); VBG PCO2 59 mmHg (41-51); VBG PH 7.28 pH Units (7.32-7.42); VBG PO2 34 mmHg (25-50)
[2019-07-16 10:23] LABS: Alanine Aminotransferase 10 Units/L (7-52); Albumin 3.3 g/dL (3.5-5.7); Albumin/Globulin Ratio 0.9 (1.1-2.2); Alkaline Phosphatase 81 Units/L (34-104); Aspartate Amino Transferase 16 Units/L (13-39); BUN/Creatinine Ratio 9 (6-26); Bilirubin,Direct 0.2 mg/dL (0.0-0.2); Bilirubin,Indirect 0.6 mg/dL (0.0-1.0); Bilirubin,Total 0.8 mg/dL (0.3-1.0); Blood Urea Nitrogen 21 mg/dL (6-20); Calcium 8.9 mg/dL (8.6-10.3); Carbon Dioxide 26 mEq/L (23-29); Chloride 99 mEq/L (98-107); Creatine Kinase 142 Units/L (30-223); Globulin 3.6 g/dL (2.4-3.5); Glucose 215 mg/dL (70-105); Magnesium 1.7 mg/dL (1.6-2.6); Osmolality,Calculated 285 (280-300); Phosphorous 5.1 mg/dL (2.7-4.5); Potassium 4.9 mEq/L (3.5-5.1); Sodium 133 mEq/L (136-145); Total Protein 6.9 g/dL (6.4-8.9); Troponin I < 0.03 ng/mL (< 0.04); eGFR For African Americans 25 (> 60); eGFR For Non-African Americans 21 (> 60)
[2019-07-16 10:26] LABS: Bilirubin,Urine Small (Negative); Blood,Urine Negative (Negative); Clarity,Urine Cloudy (Clear); Color,Urine Dark Yellow (Yellow); Glucose,Urine (UA) Normal (Normal); Ketones,Urine Trace mg/dL (Negative); Leukocyte Esterase,Urine Trace (Negative); Nitrite,Urine Negative (Negative); Protein,Urine Negative (Neg-Trace); Urobilinogen,Urine Normal (Normal)
[2019-07-16 10:28] LABS: Bacteria,Urine None Seen per hpf (None-Few); Squamous Epithelial Cell,Urine Many per lpf (None-Few); WBC,Urine 0-3 per hpf (0-3)
[2019-07-16] MEDS ORDERED: 0.9 % Sodium Chloride 1,000 ML IVC STA ×3 (10:36→12:14)
[2019-07-16 11:16] LABS: Hyaline Casts,Urine None Seen per lpf (None-Few)
[2019-07-16] MEDS ORDERED: Naloxone 0.4 MG/ML INJ IVP PRN (12:33)
[2019-07-16] MEDS ORDERED: Ipratropium/Albuterol Neb 3 ML IH PRN (12:34)
[2019-07-16] MEDS ORDERED: D5% in Water 1,000 ML IVC PRN (12:34)
[2019-07-16] MEDS ORDERED: Dextrose Gel 15 GM/37.5 ML TUBE PO PRN ×2 (12:34)
[2019-07-16] MEDS ORDERED: *HR* Dextrose 50 % in Water (Syg) 50 ML SYRINGE IVP PRN (12:34)
[2019-07-16] MEDS ORDERED: Acetaminophen 325 MG TABLET PO PRN (12:59)
[2019-07-16 14:34] LABS: Thyroid Stimulating Hormone 3.594 mcIU/mL (0.340-5.600)
[2019-07-16 15:26] LABS: Calcium 8.4 mg/dL (8.6-10.3); Potassium 6.1 mEq/L (3.5-5.1)
[2019-07-16] MEDS: Insulin LISPRO 300 UNITS/3 ML VIAL SQ SCH ×3 (15:58→22:05)
[2019-07-16 16:02] LABS: Folate > 22.3 ng/mL (3.0-16.0); Vitamin B12 338 pg/mL (250-1100)
[2019-07-16] MEDS: *HR* Heparin 5,000 UNIT/ML VIAL SQ SCH ×2 (16:10→22:04)
[2019-07-16] MEDS: 0.9 % Sodium Chloride 1,000 ML IVC SCH (16:10)
[2019-07-17 05:20] LABS: Basophils % 0.4 %; Eosinophils # 0.2 K/mcL (0.0-0.6); Eosinophils % 3.6 %; Hematocrit 32.1 % (35.3-44.9); Immature Granulocytes % 0.2 % (0-4); Lymphocytes # 2.3 K/mcL (0.6-4.6); Lymphocytes % 42.9 %; Mean Corpuscular HGB Conc 32.4 g/dL (31.6-35.5); Mean Corpuscular Hemoglobin 34.9 pg (28.0-33.3); Mean Corpuscular Volume 107.7 fL (83.0-100.0); Mean Platelet Volume 10.5 fL (9.4-12.4); Monocytes # 0.6 K/mcL (0.0-1.3); Monocytes % 11.1 %; Neutrophils # 2.2 K/mcL (1.6-8.9); Platelet Count 162 K/mcL (140-400); Red Blood Count 2.98 M/mcL (3.82-4.97); Red Cell Distribution Width 13.2 % (11.5-14.5); Segmented Neutrophils % 41.8 %; White Blood Count 5.2 K/mcL (4.3-11.1)
[2019-07-17 05:22] LABS: Hemoglobin 10.4 g/dL (11.5-15.4)
[2019-07-17 05:29] LABS: Calcium 8.3 mg/dL (8.6-10.3); Potassium 4.8 mEq/L (3.5-5.1)
[2019-07-17] MEDS: *HR* Heparin 5,000 UNIT/ML VIAL SQ SCH ×3 (05:42→21:14)
[2019-07-17] MEDS: Insulin LISPRO 300 UNITS/3 ML VIAL SQ SCH ×4 (10:05→21:25)
[2019-07-17] MEDS: 0.9 % Sodium Chloride 1,000 ML IVC SCH (10:05)
[2019-07-17] MEDS: QUEtiapine Fumarate 25 MG TABLET PO SCH (21:14)
[2019-07-17] MEDS: Gabapentin 400 MG CAPSULE PO SCH (21:14)
[2019-07-18] MEDS: *HR* Heparin 5,000 UNIT/ML VIAL SQ SCH ×3 (05:26→21:35)
[2019-07-18 08:26] LABS: Hematocrit 31.5 % (35.3-44.9); Hemoglobin 10.3 g/dL (11.5-15.4); Mean Corpuscular HGB Conc 32.7 g/dL (31.6-35.5); Mean Corpuscular Hemoglobin 34.4 pg (28.0-33.3); Mean Corpuscular Volume 105.4 fL (83.0-100.0); Mean Platelet Volume 9.9 fL (9.4-12.4); Platelet Count 130 K/mcL (140-400); Red Blood Count 2.99 M/mcL (3.82-4.97); Red Cell Distribution Width 12.8 % (11.5-14.5); White Blood Count 3.1 K/mcL (4.3-11.1)
[2019-07-18 08:37] LABS: BUN/Creatinine Ratio 23 (6-26); Blood Urea Nitrogen 16 mg/dL (6-20); Calcium 8.4 mg/dL (8.6-10.3); Carbon Dioxide 27 mEq/L (23-29); Chloride 103 mEq/L (98-107); Glucose 188 mg/dL (70-105); Osmolality,Calculated 286 (280-300); Potassium 4.6 mEq/L (3.5-5.1); Sodium 135 mEq/L (136-145); eGFR For African Americans > 60 (> 60); eGFR For Non-African Americans > 60 (> 60)
[2019-07-18] MEDS: Folic Acid 1 MG TABLET PO SCH (09:37)
[2019-07-18] MEDS: Magnesium Oxide 400 MG TABLET PO SCH (09:37)
[2019-07-18] MEDS: Insulin LISPRO 300 UNITS/3 ML VIAL SQ SCH ×4 (09:37→21:35)
[2019-07-18] MEDS: Gabapentin 400 MG CAPSULE PO SCH ×3 (09:37→21:35)
[2019-07-18] MEDS: QUEtiapine Fumarate 25 MG TABLET PO SCH (21:35)
[2019-07-19] MEDS: *HR* Heparin 5,000 UNIT/ML VIAL SQ SCH ×3 (04:10→21:38)
[2019-07-19] MEDS ORDERED: Gabapentin 400 MG CAPSULE ONE ×2 (14:11)
[2019-07-19] MEDS ORDERED: Folic Acid 1 MG TABLET ONE (14:11)
[2019-07-19] MEDS ORDERED: Magnesium Oxide 400 MG TABLET ONE (14:11)
[2019-07-19] MEDS ORDERED: *HR* Heparin 5,000 UNIT/ML VIAL ONE (14:11)
[2019-07-19 14:37] LABS: Hematocrit 28.3 % (35.3-44.9); Hemoglobin 9.3 g/dL (11.5-15.4); Mean Corpuscular HGB Conc 32.9 g/dL (31.6-35.5); Mean Corpuscular Hemoglobin 34.4 pg (28.0-33.3); Mean Corpuscular Volume 104.8 fL (83.0-100.0); Mean Platelet Volume 10.7 fL (9.4-12.4); Platelet Count 117 K/mcL (140-400); Red Cell Distribution Width 12.9 % (11.5-14.5); White Blood Count 2.8 K/mcL (4.3-11.1)
[2019-07-19] MEDS ORDERED: Acetaminophen 325 MG TABLET PO ONE (15:58)
[2019-07-19] MEDS: Insulin LISPRO 300 UNITS/3 ML VIAL SQ SCH ×3 (16:03→21:38)
[2019-07-19] MEDS: Folic Acid 1 MG TABLET PO SCH (16:08)
[2019-07-19] MEDS: Magnesium Oxide 400 MG TABLET PO SCH (16:09)
[2019-07-19] MEDS: Gabapentin 400 MG CAPSULE PO SCH ×2 (16:09→21:38)
[2019-07-19] MEDS ORDERED: *HR* HYDROmorphone 4 MG TABLET PO PRN (17:30)
[2019-07-19] MEDS: OXYMORPHONE HCL 15 MG PO SCH (20:50)
[2019-07-19] MEDS: QUEtiapine Fumarate 25 MG TABLET PO SCH (21:38)
[2019-07-20 00:09] LABS: BUN/Creatinine Ratio 18 (6-26); Blood Urea Nitrogen 12 mg/dL (6-20); Calcium 8.3 mg/dL (8.6-10.3); Carbon Dioxide 29 mEq/L (23-29); Chloride 103 mEq/L (98-107); Glucose 224 mg/dL (70-105); Osmolality,Calculated 291 (280-300); Potassium 4.2 mEq/L (3.5-5.1); Sodium 137 mEq/L (136-145); eGFR For African Americans > 60 (> 60); eGFR For Non-African Americans > 60 (> 60)
[2019-07-20] MEDS: OXYMORPHONE HCL 15 MG PO SCH ×2 (05:24→16:48)
[2019-07-20] MEDS: *HR* Heparin 5,000 UNIT/ML VIAL SQ SCH ×3 (05:30→20:55)
[2019-07-20 05:56] LABS: Hematocrit 30.1 % (35.3-44.9); Hemoglobin 9.6 g/dL (11.5-15.4); Mean Corpuscular HGB Conc 31.9 g/dL (31.6-35.5); Mean Corpuscular Hemoglobin 33.8 pg (28.0-33.3); Mean Platelet Volume 10.5 fL (9.4-12.4); Platelet Count 136 K/mcL (140-400); Red Blood Count 2.84 M/mcL (3.82-4.97); Red Cell Distribution Width 13.1 % (11.5-14.5); White Blood Count 3.4 K/mcL (4.3-11.1)
[2019-07-20 06:16] LABS: BUN/Creatinine Ratio 21 (6-26); Blood Urea Nitrogen 16 mg/dL (6-20); Calcium 8.4 mg/dL (8.6-10.3); Carbon Dioxide 32 mEq/L (23-29); Chloride 101 mEq/L (98-107); Glucose 260 mg/dL (70-105); Osmolality,Calculated 292 (280-300); Potassium 4.3 mEq/L (3.5-5.1); Sodium 136 mEq/L (136-145); eGFR For African Americans > 60 (> 60); eGFR For Non-African Americans > 60 (> 60)
[2019-07-20] MEDS: Magnesium Oxide 400 MG TABLET PO SCH (08:15)
[2019-07-20] MEDS: Gabapentin 400 MG CAPSULE PO SCH ×3 (08:16→20:55)
[2019-07-20] MEDS: Folic Acid 1 MG TABLET PO SCH (08:16)
[2019-07-20] MEDS: Insulin LISPRO 300 UNITS/3 ML VIAL SQ SCH ×4 (08:17→20:56)
[2019-07-20] MEDS ORDERED: *HR* Methotrexate 2.5 MG TABLET PO SCH (18:24)
[2019-07-20] MEDS: QUEtiapine Fumarate 25 MG TABLET PO SCH (20:56)
[2019-07-21] MEDS: *HR* Heparin 5,000 UNIT/ML VIAL SQ SCH ×3 (05:42→20:40)
[2019-07-21] MEDS: OXYMORPHONE HCL 15 MG PO SCH ×2 (05:44→17:11)
[2019-07-21 06:04] LABS: Hematocrit 29.1 % (35.3-44.9); Hemoglobin 9.7 g/dL (11.5-15.4); Mean Corpuscular HGB Conc 33.3 g/dL (31.6-35.5); Mean Corpuscular Hemoglobin 34.9 pg (28.0-33.3); Mean Corpuscular Volume 104.7 fL (83.0-100.0); Mean Platelet Volume 10.5 fL (9.4-12.4); Platelet Count 143 K/mcL (140-400); Red Blood Count 2.78 M/mcL (3.82-4.97); White Blood Count 3.8 K/mcL (4.3-11.1)
[2019-07-21 06:21] LABS: BUN/Creatinine Ratio 28 (6-26); Blood Urea Nitrogen 24 mg/dL (6-20); Calcium 8.3 mg/dL (8.6-10.3); Carbon Dioxide 29 mEq/L (23-29); Chloride 100 mEq/L (98-107); Glucose 292 mg/dL (70-105); Osmolality,Calculated 295 (280-300); Potassium 4.2 mEq/L (3.5-5.1); Sodium 135 mEq/L (136-145); eGFR For African Americans > 60 (> 60); eGFR For Non-African Americans > 60 (> 60)
[2019-07-21] MEDS: Insulin LISPRO 300 UNITS/3 ML VIAL SQ SCH ×4 (09:52→20:39)
[2019-07-21] MEDS: Folic Acid 1 MG TABLET PO SCH (09:52)
[2019-07-21] MEDS: Gabapentin 400 MG CAPSULE PO SCH ×3 (09:52→20:39)
[2019-07-21] MEDS: Magnesium Oxide 400 MG TABLET PO SCH (09:52)
[2019-07-21] MEDS: QUEtiapine Fumarate 25 MG TABLET PO SCH (20:39)
[2019-07-22] MEDS: *HR* Heparin 5,000 UNIT/ML VIAL SQ SCH ×2 (05:16→14:15)
[2019-07-22] MEDS: OXYMORPHONE HCL 15 MG PO SCH (05:17)
[2019-07-22 05:30] LABS: Hematocrit 27.9 % (35.3-44.9); Hemoglobin 9.4 g/dL (11.5-15.4); Mean Corpuscular HGB Conc 33.7 g/dL (31.6-35.5); Mean Corpuscular Hemoglobin 35.2 pg (28.0-33.3); Mean Corpuscular Volume 104.5 fL (83.0-100.0); Mean Platelet Volume 10.9 fL (9.4-12.4); Platelet Count 130 K/mcL (140-400); Red Blood Count 2.67 M/mcL (3.82-4.97); Red Cell Distribution Width 13.1 % (11.5-14.5); White Blood Count 3.7 K/mcL (4.3-11.1)
[2019-07-22 05:39] LABS: BUN/Creatinine Ratio 33 (6-26); Blood Urea Nitrogen 26 mg/dL (6-20); Calcium 8.2 mg/dL (8.6-10.3); Carbon Dioxide 29 mEq/L (23-29); Chloride 100 mEq/L (98-107); Glucose 377 mg/dL (70-105); Osmolality,Calculated 292 (280-300); Potassium 4.5 mEq/L (3.5-5.1); Sodium 131 mEq/L (136-145); eGFR For African Americans > 60 (> 60); eGFR For Non-African Americans > 60 (> 60)
[2019-07-22] MEDS: Magnesium Oxide 400 MG TABLET PO SCH (08:23)
[2019-07-22] MEDS: Insulin LISPRO 300 UNITS/3 ML VIAL SQ SCH ×2 (08:23→11:32)
[2019-07-22] MEDS: Gabapentin 400 MG CAPSULE PO SCH ×2 (08:24→14:15)
[2019-07-22] MEDS: Folic Acid 1 MG TABLET PO SCH (08:24)
[2019-07-22 11:14] VITALS: BP 116/81
== END 2019-07-22 16:06 | DRG 469 ==
LOC: 2ANU 08:50 → EMEROOARM 08:50 → SUATTDRO 12:38 → 2ANU 13:40
PROVIDERS: ADMIT Family Medicine; ATTEND Family Medicine

== ENCOUNTER 2020-04-27 19:22 | Inpatient (IN) ==
[2020-04-27] MEDS ORDERED: Aspirin 81 MG TAB.CHEW PO STA (19:40)
[2020-04-27 20:18] LABS: Basophils % 0.5 %; Eosinophils # 0.2 K/mcL (0.0-0.6); Eosinophils % 2.5 %; Hematocrit 41.2 % (35.3-44.9); Hemoglobin 13.1 g/dL (11.5-15.4); Immature Granulocytes % 0.8 % (0-4); Lymphocytes # 2.1 K/mcL (0.6-4.6); Mean Corpuscular HGB Conc 31.8 g/dL (31.6-35.5); Mean Corpuscular Hemoglobin 34.8 pg (28.0-33.3); Mean Corpuscular Volume 109.6 fL (83.0-100.0); Mean Platelet Volume 11.3 fL (9.4-12.4); Monocytes # 1.4 K/mcL (0.0-1.3); Monocytes % 16.4 %; Neutrophils # 4.8 K/mcL (1.6-8.9); Platelet Count 237 K/mcL (140-400); Red Blood Count 3.76 M/mcL (3.82-4.97); Red Cell Distribution Width 13.9 % (11.5-14.5); Segmented Neutrophils % 55.8 %; White Blood Count 8.5 K/mcL (4.3-11.1)
[2020-04-27 20:27] LABS: INR 1.1; Prothrombin Time 13.2 Seconds (9.4-12.1)
[2020-04-27 20:29] LABS: Activated Partial Thrombo Time 25.9 Seconds (26.0-36.0)
[2020-04-27 20:39] LABS: Troponin I 0.34 ng/mL (< 0.04)
[2020-04-27] MEDS ORDERED: Vancomycin 2,000 MG/520 ML IV.SOLN IVPB ONE (20:41)
[2020-04-27] MEDS ORDERED: 0.9 % Sodium Chloride 1,000 ML IVC ONE ×2 (20:42→21:27)
[2020-04-27 20:45] LABS: Albumin 3.2 g/dL (3.5-5.7); Albumin/Globulin Ratio 1.1 (1.1-2.2); Bilirubin,Direct 0.1 mg/dL (0.0-0.2); Bilirubin,Indirect 0.8 mg/dL (0.0-1.0); Bilirubin,Total 0.9 mg/dL (0.3-1.0); Calcium 8.6 mg/dL (8.6-10.3); Potassium 3.9 mEq/L (3.5-5.1); Total Protein 6.2 g/dL (6.4-8.9)
[2020-04-27 21:03] LABS: Bilirubin,Urine Small (Negative); Blood,Urine Negative (Negative); Clarity,Urine Ex.Turbid (Clear); Color,Urine Yellow (Yellow); Glucose,Urine (UA) 300 mg/dL (Normal); Hyaline Casts,Urine Many per lpf (None Seen); Ketones,Urine Negative (Negative); Leukocyte Esterase,Urine Large (Negative); Mucus,Urine Few per lpf (None-Few); Nitrite,Urine Negative (Negative); Protein,Urine 100 mg/dL (Neg-Trace); Squamous Epithelial Cell,Urine Few per hpf (None-Few); WBC,Urine TNTC per hpf (0-3)
[2020-04-27] MEDS ORDERED: *HR* Heparin 5,000 UNIT/ML VIAL IVP PRN (21:07)
[2020-04-27] MEDS ORDERED: *HR* Heparin 5,000 UNIT/ML VIAL IVP ONE (21:07)
[2020-04-27] MEDS ORDERED: cefTRIAXone 1,000 MG in 0.9 % Sodium Chloride Mini Bag 100 ML IVPB ONE (21:14)
[2020-04-27 22:18] LABS: Hematocrit 41.3 % (35.3-44.9); Mean Corpuscular HGB Conc 31.5 g/dL (31.6-35.5); Mean Corpuscular Hemoglobin 33.9 pg (28.0-33.3); Mean Corpuscular Volume 107.6 fL (83.0-100.0); Mean Platelet Volume 10.3 fL (9.4-12.4); Platelet Count 243 K/mcL (140-400); Red Blood Count 3.84 M/mcL (3.82-4.97); Red Cell Distribution Width 13.9 % (11.5-14.5)
[2020-04-27 22:26] LABS: Heparin anti-factor XA UFH < 0.04 IU/mL (0.30-0.70)
[2020-04-27 22:27] LABS: INR 1.1
[2020-04-27] MEDS: Heparin 25,000UNIT/250ML 1/2NS 25,000 UNIT/250 ML IV.SOLN IVC SCH (23:38)
[2020-04-28] MEDS ORDERED: *HR* Dextrose 50 % in Water (Vial) 50 ML VIAL IVP PRN (00:48)
[2020-04-28] MEDS ORDERED: Dextrose Gel 15 GM/37.5 ML TUBE PO PRN ×2 (00:48)
[2020-04-28] MEDS ORDERED: D5% in Water 1,000 ML IVC PRN (00:48)
[2020-04-28] MEDS ORDERED: Vancomycin (wt based) 1,000 MG VIAL IVPB SCH (01:00)
[2020-04-28] MEDS: 0.9 % Sodium Chloride 1,000 ML IVC SCH ×3 (01:19→17:23)
[2020-04-28 05:59] LABS: Basophils % 0.5 %; Eosinophils # 0.2 K/mcL (0.0-0.6); Eosinophils % 2.7 %; Hematocrit 41.4 % (35.3-44.9); Hemoglobin 12.7 g/dL (11.5-15.4); Immature Granulocytes % 0.5 % (0-4); Lymphocytes # 1.6 K/mcL (0.6-4.6); Lymphocytes % 20.3 %; Mean Corpuscular HGB Conc 30.7 g/dL (31.6-35.5); Mean Corpuscular Hemoglobin 33.9 pg (28.0-33.3); Mean Corpuscular Volume 110.4 fL (83.0-100.0); Mean Platelet Volume 10.8 fL (9.4-12.4); Monocytes # 0.9 K/mcL (0.0-1.3); Monocytes % 11.7 %; Platelet Count 239 K/mcL (140-400); Red Blood Count 3.75 M/mcL (3.82-4.97); Segmented Neutrophils % 64.3 %; White Blood Count 7.7 K/mcL (4.3-11.1)
[2020-04-28 06:08] LABS: INR 1.1; Prothrombin Time 12.7 Seconds (9.4-12.1)
[2020-04-28 06:10] LABS: Activated Partial Thrombo Time 26.1 Seconds (26.0-36.0)
[2020-04-28 06:24] LABS: Anisocytosis 1+ (Not Present); Macrocytosis Present (Not Present); Platelet Estimate Normal (Normal); Polychromasia 1+ (Not Present)
[2020-04-28 06:25] LABS: Troponin I 0.17 ng/mL (< 0.04)
[2020-04-28] MEDS: *HR* Heparin 5,000 UNIT/ML VIAL IVP PRN ×2 (06:26→16:19)
[2020-04-28 06:28] LABS: Albumin 3.1 g/dL (3.5-5.7); Albumin/Globulin Ratio 1.1 (1.1-2.2); Bilirubin,Direct 0.3 mg/dL (0.0-0.2); Bilirubin,Indirect 0.6 mg/dL (0.0-1.0); Bilirubin,Total 0.9 mg/dL (0.3-1.0); Calcium 8.1 mg/dL (8.6-10.3); Globulin 2.9 g/dL (2.4-3.5); Potassium 3.9 mEq/L (3.5-5.1)
[2020-04-28] MEDS: Insulin LISPRO 300 UNITS/3 ML VIAL SUBQ SCH ×4 (06:34→21:43)
[2020-04-28] MEDS ORDERED: Perflutren Lipid Microsphere 1.3 ML in 0.9 % Sodium Chloride 8.7 ML IVP PRN (06:59)
[2020-04-28] MEDS: Loratadine 10 MG TABLET PO SCH (07:55)
[2020-04-28] MEDS: Folic Acid 1 MG TABLET PO SCH ×3 (07:55→21:41)
[2020-04-28] MEDS: Gabapentin 400 MG CAPSULE PO SCH ×3 (07:56→21:41)
[2020-04-28 08:15] LABS: Estimated Average Glucose 263 mg/dl; Hemoglobin A1C 10.8 %
[2020-04-28] MEDS ORDERED: *HR* Metoprolol 5 MG/5 ML VIAL IVP ONE (11:03)
[2020-04-28] MEDS: Heparin 25,000UNIT/250ML 1/2NS 25,000 UNIT/250 ML IV.SOLN IVC SCH (17:24)
[2020-04-28] MEDS ORDERED: Vancomycin 1,750 MG/517.5 ML IV.SOLN IVPB SCH (21:00)
[2020-04-28] MEDS: QUEtiapine Fumarate 25 MG TABLET PO SCH (21:41)
[2020-04-29 04:33] LABS: Sodium, Urine 38.9 mEq/L
[2020-04-29] MEDS: *HR* Metoprolol 5 MG/5 ML VIAL IVP SCH ×3 (04:42→12:51)
[2020-04-29] MEDS: Insulin LISPRO 300 UNITS/3 ML VIAL SUBQ SCH ×5 (04:43→21:18)
[2020-04-29] MEDS: 0.9 % Sodium Chloride 1,000 ML IVC SCH ×3 (04:44→17:01)
[2020-04-29] MEDS: Heparin 25,000UNIT/250ML 1/2NS 25,000 UNIT/250 ML IV.SOLN IVC SCH (04:47)
[2020-04-29 06:17] LABS: Basophils % 0.6 %; Eosinophils # 0.1 K/mcL (0.0-0.6); Eosinophils % 0.9 %; Hematocrit 37.9 % (35.3-44.9); Hemoglobin 11.6 g/dL (11.5-15.4); Immature Granulocytes % 0.6 % (0-4); Lymphocytes # 0.7 K/mcL (0.6-4.6); Lymphocytes % 12.5 %; Mean Corpuscular HGB Conc 30.6 g/dL (31.6-35.5); Mean Corpuscular Hemoglobin 34.5 pg (28.0-33.3); Mean Corpuscular Volume 112.8 fL (83.0-100.0); Mean Platelet Volume 10.5 fL (9.4-12.4); Monocytes # 0.5 K/mcL (0.0-1.3); Monocytes % 9.3 %; Platelet Count 170 K/mcL (140-400); Red Blood Count 3.36 M/mcL (3.82-4.97); Red Cell Distribution Width 13.8 % (11.5-14.5); Segmented Neutrophils % 76.1 %; White Blood Count 5.3 K/mcL (4.3-11.1)
[2020-04-29 06:32] LABS: Calcium 7.7 mg/dL (8.6-10.3); Potassium 4.8 mEq/L (3.5-5.1)
[2020-04-29 06:50] LABS: Platelet Estimate Normal (Normal)
[2020-04-29] MEDS: Loratadine 10 MG TABLET PO SCH (10:11)
[2020-04-29] MEDS: Gabapentin 400 MG CAPSULE PO SCH ×3 (10:11→21:09)
[2020-04-29] MEDS: Folic Acid 1 MG TABLET PO SCH ×3 (10:11→15:31)
[2020-04-29] MEDS: cefTRIAXone 2,000 MG in Water for inj. (sterile) 20 ML IVP SCH (10:12)
[2020-04-29 16:37] LABS: ABG Base Excess 2 mEq/L (-2 to 3); ABG HCO3 29 mEq/L (21-27); ABG Oxygen Saturation 93 % (95-98); ABG PCO2 55 mmHg (35-45); ABG PH 7.33 pH Units (7.32-7.45); ABG PO2 73 mmHg (85-104); ABG TCO2 31 mEq/L (20-26)
[2020-04-29] MEDS: *HR* Heparin 5,000 UNIT/ML VIAL SQ SCH (18:14)
[2020-04-29] MEDS: QUEtiapine Fumarate 25 MG TABLET PO SCH (21:10)
[2020-04-30] MEDS: 0.9 % Sodium Chloride 1,000 ML IVC SCH ×2 (01:24→08:38)
[2020-04-30] MEDS: Insulin LISPRO 300 UNITS/3 ML VIAL SUBQ SCH ×5 (01:47→21:11)
[2020-04-30 06:21] LABS: Basophils % 0.2 %; Eosinophils % 0.8 %; Immature Granulocytes % 0.6 % (0-4); Lymphocytes # 0.6 K/mcL (0.6-4.6); Lymphocytes % 12.6 %; Mean Corpuscular HGB Conc 30.6 g/dL (31.6-35.5); Mean Corpuscular Hemoglobin 34.3 pg (28.0-33.3); Mean Corpuscular Volume 112.1 fL (83.0-100.0); Mean Platelet Volume 10.6 fL (9.4-12.4); Monocytes # 0.6 K/mcL (0.0-1.3); Monocytes % 11.5 %; Neutrophils # 3.6 K/mcL (1.6-8.9); Platelet Count 168 K/mcL (140-400); Red Blood Count 3.21 M/mcL (3.82-4.97); Red Cell Distribution Width 13.5 % (11.5-14.5); Segmented Neutrophils % 74.3 %; White Blood Count 4.9 K/mcL (4.3-11.1)
[2020-04-30] MEDS: *HR* Heparin 5,000 UNIT/ML VIAL SQ SCH ×2 (06:23→17:34)
[2020-04-30 06:42] LABS: Calcium 7.9 mg/dL (8.6-10.3); Potassium 4.6 mEq/L (3.5-5.1)
[2020-04-30 06:43] LABS: Platelet Estimate Normal (Normal)
[2020-04-30 06:44] LABS: Anisocytosis 1+ (Not Present)
[2020-04-30] MEDS: Gabapentin 400 MG CAPSULE PO SCH ×3 (08:39→21:00)
[2020-04-30] MEDS: Folic Acid 1 MG TABLET PO SCH ×3 (08:40→20:59)
[2020-04-30] MEDS: Loratadine 10 MG TABLET PO SCH (08:40)
[2020-04-30] MEDS: cefTRIAXone 2,000 MG in Water for inj. (sterile) 20 ML IVP SCH (09:05)
[2020-04-30] MEDS ORDERED: Dextrose Gel 15 GM/37.5 ML TUBE PO PRN ×2 (18:53)
[2020-04-30] MEDS ORDERED: D5% in Water 1,000 ML IVC PRN (18:53)
[2020-04-30] MEDS ORDERED: *HR* Dextrose 50 % in Water (Vial) 50 ML VIAL IVP PRN (18:53)
[2020-04-30] MEDS: QUEtiapine Fumarate 25 MG TABLET PO SCH (21:01)
[2020-05-01] MEDS ORDERED: Insulin LISPRO 300 UNITS/3 ML VIAL SUBQ SCH
[2020-05-01] MEDS: *HR* Heparin 5,000 UNIT/ML VIAL SQ SCH ×2 (05:56→17:44)
[2020-05-01 07:31] LABS: Eosinophils # 0.1 K/mcL (0.0-0.6); Hematocrit 37.5 % (35.3-44.9); Hemoglobin 11.3 g/dL (11.5-15.4); Mean Corpuscular HGB Conc 30.1 g/dL (31.6-35.5); Mean Corpuscular Hemoglobin 33.7 pg (28.0-33.3); Mean Corpuscular Volume 111.9 fL (83.0-100.0); Mean Platelet Volume 10.8 fL (9.4-12.4); Platelet Count 158 K/mcL (140-400); Red Blood Count 3.35 M/mcL (3.82-4.97); Red Cell Distribution Width 13.4 % (11.5-14.5); White Blood Count 4.7 K/mcL (4.3-11.1)
[2020-05-01] MEDS: Gabapentin 400 MG CAPSULE PO SCH ×3 (07:33→20:55)
[2020-05-01] MEDS: Loratadine 10 MG TABLET PO SCH (07:33)
[2020-05-01] MEDS: Folic Acid 1 MG TABLET PO SCH ×3 (07:33→20:55)
[2020-05-01] MEDS: cefTRIAXone 2,000 MG in Water for inj. (sterile) 20 ML IVP SCH (07:34)
[2020-05-01] MEDS: Insulin LISPRO 300 UNITS/3 ML VIAL SUBQ SCH ×4 (07:48→20:56)
[2020-05-01 07:52] LABS: Calcium 8.4 mg/dL (8.6-10.3); Potassium 4.4 mEq/L (3.5-5.1)
[2020-05-01] MEDS ORDERED: Furosemide 40 MG/4 ML VIAL IVP ONE (08:01)
[2020-05-01 08:04] LABS: Lymphocytes # 1.1 K/mcL (0.6-4.6); Monocytes # 0.4 K/mcL (0.0-1.3); Neutrophils # 3.1 K/mcL (1.6-8.9); Platelet Estimate Normal (Normal)
[2020-05-01] MEDS: QUEtiapine Fumarate 25 MG TABLET PO SCH (20:55)
[2020-05-02] MEDS: *HR* Heparin 5,000 UNIT/ML VIAL SQ SCH (05:33)
[2020-05-02 06:15] LABS: Basophils % 0.7 %; Eosinophils # 0.1 K/mcL (0.0-0.6); Eosinophils % 2.3 %; Hematocrit 37.3 % (35.3-44.9); Hemoglobin 11.6 g/dL (11.5-15.4); Immature Granulocytes % 1.2 % (0-4); Lymphocytes # 0.9 K/mcL (0.6-4.6); Mean Corpuscular HGB Conc 31.1 g/dL (31.6-35.5); Mean Corpuscular Hemoglobin 34.3 pg (28.0-33.3); Mean Corpuscular Volume 110.4 fL (83.0-100.0); Monocytes # 0.6 K/mcL (0.0-1.3); Monocytes % 13.4 %; Neutrophils # 2.7 K/mcL (1.6-8.9); Platelet Count 154 K/mcL (140-400); Red Blood Count 3.38 M/mcL (3.82-4.97); Red Cell Distribution Width 13.5 % (11.5-14.5); Segmented Neutrophils % 62.4 %; White Blood Count 4.3 K/mcL (4.3-11.1)
[2020-05-02 06:43] LABS: Calcium 8.4 mg/dL (8.6-10.3); Potassium 4.6 mEq/L (3.5-5.1)
[2020-05-02] MEDS ORDERED: Furosemide 40 MG/4 ML VIAL IVP SCH (09:00)
[2020-05-02] MEDS: Gabapentin 400 MG CAPSULE PO SCH (09:44)
[2020-05-02] MEDS: Loratadine 10 MG TABLET PO SCH (09:45)
[2020-05-02] MEDS: Folic Acid 1 MG TABLET PO SCH (09:45)
[2020-05-02] MEDS: cefTRIAXone 2,000 MG in Water for inj. (sterile) 20 ML IVP SCH (09:46)
[2020-05-02] MEDS: Insulin LISPRO 300 UNITS/3 ML VIAL SUBQ SCH ×2 (09:47→11:38)
[2020-05-02 11:31] VITALS: BP 128/85
[2020-05-02] MEDS ORDERED: FLU Vac QV 20-21 (6Month+)/PF 0.5 ML SYRINGE IM ONE (12:13)
== END 2020-05-02 13:40 | disposition home health service (06) | DRG 720 ==
LOC: EMEROOARM 19:22 → 2ANU 19:22 → 2NNU 23:31 → SUATTDRO 04-28 18:29 → 2ANU 04-30 18:50
PROVIDERS: ADMIT Internal Medicine; ATTEND Internal Medicine

== ENCOUNTER 2020-05-21 22:49 | Inpatient (IN) ==
[2020-05-21 23:41] LABS: Basophils # 0.1 K/mcL (0.0-0.2); Basophils % 0.5 %; Eosinophils # 0.5 K/mcL (0.0-0.6); Eosinophils % 5.6 %; Hematocrit 46.2 % (35.3-44.9); Hemoglobin 14.4 g/dL (11.5-15.4); Immature Granulocytes % 0.4 % (0-4); Lymphocytes % 21.3 %; Mean Corpuscular HGB Conc 31.2 g/dL (31.6-35.5); Mean Corpuscular Hemoglobin 33.3 pg (28.0-33.3); Mean Corpuscular Volume 106.7 fL (83.0-100.0); Mean Platelet Volume 10.5 fL (9.4-12.4); Monocytes # 1.3 K/mcL (0.0-1.3); Monocytes % 14.5 %; Neutrophils # 5.3 K/mcL (1.6-8.9); Nucleated Red Blood Cells 0.2 /100 WBC (0); Platelet Count 264 K/mcL (140-400); Red Blood Count 4.33 M/mcL (3.82-4.97); Red Cell Distribution Width 13.3 % (11.5-14.5); Segmented Neutrophils % 57.7 %; White Blood Count 9.2 K/mcL (4.3-11.1)
[2020-05-21 23:45] LABS: INR 1.1; Prothrombin Time 12.6 Seconds (9.4-12.1)
[2020-05-21 23:48] LABS: Activated Partial Thrombo Time 31.3 Seconds (26.0-36.0)
[2020-05-22 00:13] LABS: Alanine Aminotransferase 17 Units/L (7-52); Albumin 3.2 g/dL (3.5-5.7); Albumin/Globulin Ratio 0.9 (1.1-2.2); Alkaline Phosphatase 82 Units/L (34-104); Aspartate Amino Transferase 23 Units/L (13-39); BUN/Creatinine Ratio 4 (6-26); Bilirubin,Direct 0.1 mg/dL (0.0-0.2); Bilirubin,Indirect 0.6 mg/dL (0.0-1.0); Bilirubin,Total 0.7 mg/dL (0.3-1.0); Blood Urea Nitrogen 17 mg/dL (6-20); Calcium 8.9 mg/dL (8.6-10.3); Carbon Dioxide 27 mEq/L (23-29); Chloride 96 mEq/L (98-107); Creatine Kinase 167 Units/L (30-223); Ethanol < 10 mg/dL (Less than 10); Globulin 3.7 g/dL (2.4-3.5); Glucose 140 mg/dL (70-105); Osmolality,Calculated 284 (280-300); Potassium 4.8 mEq/L (3.5-5.1); Sodium 135 mEq/L (136-145); Total Protein 6.9 g/dL (6.4-8.9); Troponin I < 0.03 ng/mL (< 0.04); eGFR For African Americans 14 (> 60); eGFR For Non-African Americans 11 (> 60)
[2020-05-22 00:14] LABS: Thyroid Stimulating Hormone 4.499 mcIU/mL (0.340-5.600)
[2020-05-22 00:15] LABS: Amorphous Sediment,Urine Few per hpf (None-Few); Bacteria,Urine Few per hpf (None-Few); Bilirubin,Urine Negative (Negative); Blood,Urine Negative (Negative); Clarity,Urine Turbid (Clear); Color,Urine Dark-Yellow (Yellow); Glucose,Urine (UA) 100 mg/dL (Normal); Hyaline Casts,Urine Many per lpf (None Seen); Ketones,Urine Trace mg/dL (Negative); Leukocyte Esterase,Urine Large (Negative); Mucus,Urine Few per lpf (None-Few); Nitrite,Urine Negative (Negative); Protein,Urine >=300 mg/dL (Neg-Trace); Specific Gravity,Urine 1.027 (1.010-1.025); Squamous Epithelial Cell,Urine Few per hpf (None-Few); Urobilinogen,Urine Normal (Normal); WBC,Urine 30-50 per hpf (0-3)
[2020-05-22] MEDS ORDERED: 0.9 % Sodium Chloride 1,000 ML IVC ONE (00:24)
[2020-05-22] MEDS ORDERED: cefTRIAXone 1,000 MG in Water for inj. (sterile) 10 ML IVP ONE (00:24)
[2020-05-22 00:37] LABS: ABG Base Excess 2 mEq/L (-2 to 3); ABG HCO3 33 mEq/L (21-27); ABG Oxygen Saturation 83 % (95-98); ABG PCO2 86 mmHg (35-45); ABG PO2 61 mmHg (85-104); ABG TCO2 36 mEq/L (20-26)
[2020-05-22 01:02] LABS: Amphetamine Screen,Urine Negative ng/mL (Cutoff=1000); Barbiturate Screen,Urine Negative ng/mL (Cutoff=200); Benzodiazepines Screen,Urine Negative ng/mL (Cutoff=200); Cannabinoid Screen,Urine Negative ng/mL (Cutoff = 50); Cocaine Screen,Urine Negative ng/mL (Cutoff= 300); Opiate Screen,Urine Positive ng/mL (Cutoff=300); Phencyclidine Screen,Urine Negative ng/mL (Cutoff=25)
[2020-05-22] MEDS ORDERED: Naloxone 0.4 MG/ML INJ IVP ONE (01:06)
[2020-05-22] MEDS ORDERED: Azithromycin 500 MG in 0.9 % Sodium Chloride 250 ML IVPB ONE (01:20)
[2020-05-22] MEDS ORDERED: Ondansetron 4 MG/2 ML VIAL IVP PRN (02:17)
[2020-05-22] MEDS ORDERED: Acetaminophen 325 MG TABLET PO PRN (02:17)
[2020-05-22] MEDS ORDERED: 0.9 % Sodium Chloride 1,000 ML IVC SCH ×2 (02:30→13:00)
[2020-05-22 02:38] LABS: ABG Base Excess -1 mEq/L (-2 to 3); ABG HCO3 28 mEq/L (21-27); ABG Oxygen Saturation 94 % (95-98); ABG PCO2 64 mmHg (35-45); ABG PH 7.25 pH Units (7.32-7.45); ABG PO2 82 mmHg (85-104); ABG TCO2 30 mEq/L (20-26); Blood Gas VT 500 cc
[2020-05-22] MEDS: Ipratropium/Albuterol Neb 3 ML IH SCH ×6 (04:08→23:10)
[2020-05-22 05:12] LABS: Hematocrit 42.7 % (35.3-44.9); Hemoglobin 12.9 g/dL (11.5-15.4); Mean Corpuscular HGB Conc 30.2 g/dL (31.6-35.5); Mean Corpuscular Hemoglobin 32.7 pg (28.0-33.3); Mean Corpuscular Volume 108.1 fL (83.0-100.0); Mean Platelet Volume 11.2 fL (9.4-12.4); Platelet Count 219 K/mcL (140-400); Red Blood Count 3.95 M/mcL (3.82-4.97); Red Cell Distribution Width 13.3 % (11.5-14.5); White Blood Count 8.4 K/mcL (4.3-11.1)
[2020-05-22 05:12] LABS: Creatinine,Urine 224 mg/dL; Sodium, Urine 22.8 mEq/L
[2020-05-22 05:31] LABS: ABG Base Excess 0 mEq/L (-2 to 3); ABG HCO3 30 mEq/L (21-27); ABG Oxygen Saturation 93 % (95-98); ABG PCO2 68 mmHg (35-45); ABG PH 7.24 pH Units (7.32-7.45); ABG PO2 82 mmHg (85-104); ABG TCO2 32 mEq/L (20-26); Blood Gas Modality ASSIST CONTROL; Blood Gas VT 500 cc
[2020-05-22] MEDS: *HR* Heparin 5,000 UNIT/ML VIAL SQ SCH ×3 (05:52→22:24)
[2020-05-22] MEDS ORDERED: MethylPREDNISolone 40 MG/ML VIAL IVP SCH ×2 (06:00→09:50)
[2020-05-22] MEDS ORDERED: Ipratropium/Albuterol Neb 3 ML IH PRN (09:13)
[2020-05-22] MEDS: cefTRIAXone 1,000 MG in 0.9 % Sodium Chloride Mini Bag 100 ML IVPB SCH (09:17)
[2020-05-22 10:04] LABS: ABG Base Excess 2 mEq/L (-2 to 3); ABG HCO3 32 mEq/L (21-27); ABG Oxygen Saturation 93 % (95-98); ABG PCO2 78 mmHg (35-45); ABG PH 7.23 pH Units (7.32-7.45); ABG PO2 83 mmHg (85-104); ABG TCO2 35 mEq/L (20-26); Blood Gas Modality avaps; Blood Gas VT 500 cc
[2020-05-22] MEDS ORDERED: Dexmedetomidine HCl 400 MCG/100 ML MLS IVC SCH (12:00)
[2020-05-22 12:39] LABS: Basophils % 0.3 %; Eosinophils # 0.3 K/mcL (0.0-0.6); Eosinophils % 3.5 %; Hematocrit 41.6 % (35.3-44.9); Hemoglobin 12.7 g/dL (11.5-15.4); Immature Granulocytes % 0.3 % (0-4); Lymphocytes % 12.2 %; Mean Corpuscular HGB Conc 30.5 g/dL (31.6-35.5); Mean Corpuscular Hemoglobin 33.3 pg (28.0-33.3); Mean Corpuscular Volume 109.2 fL (83.0-100.0); Mean Platelet Volume 10.8 fL (9.4-12.4); Monocytes # 0.8 K/mcL (0.0-1.3); Monocytes % 9.9 %; Neutrophils # 5.9 K/mcL (1.6-8.9); Platelet Count 212 K/mcL (140-400); Red Blood Count 3.81 M/mcL (3.82-4.97); Red Cell Distribution Width 13.4 % (11.5-14.5); Segmented Neutrophils % 73.8 %
[2020-05-22 13:00] LABS: Albumin 2.9 g/dL (3.5-5.7); Albumin/Globulin Ratio 0.9 (1.1-2.2); Bilirubin,Total 0.6 mg/dL (0.3-1.0); Calcium 8.3 mg/dL (8.6-10.3); Globulin 3.4 g/dL (2.4-3.5); Potassium 5.7 mEq/L (3.5-5.1); Total Protein 6.3 g/dL (6.4-8.9)
[2020-05-22] MEDS ORDERED: D5% in Water 1,000 ML IVC PRN (13:24)
[2020-05-22] MEDS ORDERED: Dextrose Gel 15 GM/37.5 ML TUBE PO PRN ×2 (13:24)
[2020-05-22] MEDS ORDERED: SODIUM ZIRCONIUM CYCLOSILICATE 5 GM POWD.PACK PO SCH (14:00)
[2020-05-22] MEDS: 0.9 % Sodium Chloride 1,000 ML IVC SCH (14:28)
[2020-05-22] MEDS: Magnesium Oxide 400 MG TABLET PO SCH ×2 (14:29→22:17)
[2020-05-22] MEDS: Insulin LISPRO 300 UNITS/3 ML VIAL SUBQ SCH (17:56)
[2020-05-22] MEDS ORDERED: Azithromycin 500 MG in 0.9 % Sodium Chloride 250 ML IVPB SCH (18:00)
[2020-05-22] MEDS: Dexmedetomidine HCl 400 MCG/100 ML MLS IVC SCH (19:57)
[2020-05-22 20:38] LABS: VBG Ionized Calcium 1.07 mmol/L (1.15-1.35)
[2020-05-22] MEDS ORDERED: Furosemide 40 MG TABLET PO SCH (21:00)
[2020-05-22 21:49] LABS: Calcium 8.3 mg/dL (8.6-10.3); Magnesium 2.2 mg/dL (1.6-2.6); Phosphorous 6.7 mg/dL (2.7-4.5); Potassium 6.4 mEq/L (3.5-5.1)
[2020-05-22] MEDS ORDERED: Insulin Human Regular 10 UNIT in 0.9 % Sodium Chloride 10 ML IV ONE (22:00)
[2020-05-22] MEDS ORDERED: Calcium Gluconate 1gm/50mL 1 GM/50 ML BAG IVPB ONE (22:02)
[2020-05-22] MEDS: *HR* Dextrose 50 % in Water (Vial) 50 ML VIAL IVP PRN (22:22)
[2020-05-22] MEDS ORDERED: Albuterol 2.5 MG/3 ML NEBULIZER IH ONE (22:35)
[2020-05-23] MEDS: 0.9 % Sodium Chloride 1,000 ML IVC SCH ×4 (01:23→20:29)
[2020-05-23] MEDS: Insulin LISPRO 300 UNITS/3 ML VIAL SUBQ SCH ×4 (01:24→17:52)
[2020-05-23] MEDS ORDERED: Haloperidol Lactate 5 MG/ML VIAL IM ONE ×2 (01:55→19:50)
[2020-05-23 03:13] LABS: Basophils % 0.2 %; Hematocrit 41.8 % (35.3-44.9); Hemoglobin 12.8 g/dL (11.5-15.4); Immature Granulocytes % 0.4 % (0-4); Lymphocytes # 0.5 K/mcL (0.6-4.6); Lymphocytes % 9.1 %; Mean Corpuscular HGB Conc 30.6 g/dL (31.6-35.5); Mean Corpuscular Hemoglobin 33.5 pg (28.0-33.3); Mean Corpuscular Volume 109.4 fL (83.0-100.0); Mean Platelet Volume 10.9 fL (9.4-12.4); Monocytes # 0.5 K/mcL (0.0-1.3); Monocytes % 8.2 %; Neutrophils # 4.5 K/mcL (1.6-8.9); Platelet Count 170 K/mcL (140-400); Red Blood Count 3.82 M/mcL (3.82-4.97); Red Cell Distribution Width 12.9 % (11.5-14.5); Segmented Neutrophils % 82.1 %; White Blood Count 5.5 K/mcL (4.3-11.1)
[2020-05-23 03:15] LABS: VBG Ionized Calcium 1.01 mmol/L (1.15-1.35)
[2020-05-23 03:22] LABS: ABG Base Excess 2 mEq/L (-2 to 3); ABG HCO3 30 mEq/L (21-27); ABG Oxygen Saturation 87 % (95-98); ABG PCO2 67 mmHg (35-45); ABG PH 7.27 pH Units (7.32-7.45); ABG PO2 63 mmHg (85-104); ABG TCO2 32 mEq/L (20-26)
[2020-05-23 03:25] LABS: Complement C3 141 mg/dL (87-200)
[2020-05-23] MEDS: Dexmedetomidine HCl 400 MCG/100 ML MLS IVC SCH ×6 (03:25→23:27)
[2020-05-23] MEDS: Ipratropium/Albuterol Neb 3 ML IH SCH ×6 (03:26→23:34)
[2020-05-23 03:33] LABS: Rheumatoid Factor < 10 IU/mL (Less than 14)
[2020-05-23 03:39] LABS: Calcium 8.4 mg/dL (8.6-10.3); Magnesium 2.3 mg/dL (1.6-2.6); Phosphorous 5.7 mg/dL (2.7-4.5); Potassium 6.3 mEq/L (3.5-5.1)
[2020-05-23 04:01] LABS: Folate > 22.3 ng/mL (3.0-16.0); Vitamin B12 714 pg/mL (250-1100)
[2020-05-23] MEDS ORDERED: Insulin Human Regular 10 UNIT in 0.9 % Sodium Chloride 10 ML IV ONE (04:17)
[2020-05-23] MEDS: Calcium Gluconate 1gm/50mL 1 GM/50 ML BAG IVPB PRN (04:52)
[2020-05-23] MEDS: *HR* Heparin 5,000 UNIT/ML VIAL SQ SCH ×3 (04:52→23:25)
[2020-05-23] MEDS: *HR* Dextrose 50 % in Water (Vial) 50 ML VIAL IVP PRN (04:57)
[2020-05-23] MEDS: Loratadine 10 MG TABLET PO SCH (07:57)
[2020-05-23] MEDS: Magnesium Oxide 400 MG TABLET PO SCH ×3 (07:57→20:33)
[2020-05-23] MEDS: cefTRIAXone 1,000 MG in 0.9 % Sodium Chloride Mini Bag 100 ML IVPB SCH (08:05)
[2020-05-23] MEDS: MethylPREDNISolone 40 MG/ML VIAL IVP SCH (08:05)
[2020-05-23 09:27] LABS: Calcium 8.4 mg/dL (8.6-10.3); Potassium 5.5 mEq/L (3.5-5.1)
[2020-05-23] MEDS ORDERED: Albumin 25% 25gram/100mL 0 GM/0 ML IV.SOLN ONE (09:53)
[2020-05-23] MEDS: Albumin Human 5% 12.5 GM/250 ML IV.SOLN IVC SCH ×2 (09:57→17:44)
[2020-05-23 13:49] LABS: Calcium 8.5 mg/dL (8.6-10.3)
[2020-05-23 16:28] LABS: Protein/Creatinine Ratio,Urine 0.36 mg/mg (0.00-0.20)
[2020-05-23] MEDS ORDERED: Budesonide/Formoterol 160/4.5 1 PUFF INH IH ONE (19:59)
[2020-05-23] MEDS: Budesonide/Formoterol 160/4.5 1 PUFF INH IH SCH (20:00)
[2020-05-23] MEDS: Insulin DETEMIR 100 UNIT/ML X5UNITS SUBQ SCH (20:35)
[2020-05-23 21:40] LABS: Calcium 8.2 mg/dL (8.6-10.3); Potassium 5.5 mEq/L (3.5-5.1)
[2020-05-24] MEDS: Insulin LISPRO 300 UNITS/3 ML VIAL SUBQ SCH ×5 (00:02→17:52)
[2020-05-24] MEDS: Dexmedetomidine HCl 400 MCG/100 ML MLS IVC SCH ×3 (01:14→04:15)
[2020-05-24] MEDS: Ipratropium/Albuterol Neb 3 ML IH SCH ×6 (03:14→23:56)
[2020-05-24] MEDS ORDERED: Naloxone 0.4 MG/ML INJ IVP PRN (05:05)
[2020-05-24] MEDS: 0.9 % Sodium Chloride 1,000 ML IVC SCH ×2 (05:26→15:38)
[2020-05-24] MEDS: *HR* Heparin 5,000 UNIT/ML VIAL SQ SCH ×3 (05:27→21:10)
[2020-05-24 05:52] LABS: Basophils % 0.2 %; Hematocrit 37.5 % (35.3-44.9); Hemoglobin 11.9 g/dL (11.5-15.4); Immature Granulocytes % 0.2 % (0-4); Lymphocytes # 0.4 K/mcL (0.6-4.6); Lymphocytes % 10.7 %; Mean Corpuscular HGB Conc 31.7 g/dL (31.6-35.5); Mean Corpuscular Hemoglobin 33.7 pg (28.0-33.3); Mean Corpuscular Volume 106.2 fL (83.0-100.0); Mean Platelet Volume 10.5 fL (9.4-12.4); Monocytes # 0.5 K/mcL (0.0-1.3); Neutrophils # 3.2 K/mcL (1.6-8.9); Platelet Count 147 K/mcL (140-400); Red Blood Count 3.53 M/mcL (3.82-4.97); Red Cell Distribution Width 12.7 % (11.5-14.5); Segmented Neutrophils % 77.9 %; White Blood Count 4.1 K/mcL (4.3-11.1)
[2020-05-24 06:11] LABS: Calcium 8.4 mg/dL (8.6-10.3); Potassium 4.9 mEq/L (3.5-5.1)
[2020-05-24] MEDS: Budesonide/Formoterol 160/4.5 1 PUFF INH IH SCH ×2 (07:27→20:07)
[2020-05-24] MEDS: Loratadine 10 MG TABLET PO SCH (08:24)
[2020-05-24] MEDS: Magnesium Oxide 400 MG TABLET PO SCH ×3 (08:24→21:10)
[2020-05-24] MEDS: MethylPREDNISolone 40 MG/ML VIAL IVP SCH (08:24)
[2020-05-24] MEDS: cefTRIAXone 1,000 MG in 0.9 % Sodium Chloride Mini Bag 100 ML IVPB SCH (08:25)
[2020-05-24] MEDS: Insulin DETEMIR 100 UNIT/ML X5UNITS SUBQ SCH ×2 (10:28→21:11)
[2020-05-24] MEDS: QUEtiapine Fumarate 25 MG TABLET PO SCH (12:15)
[2020-05-24] MEDS: *HR* Metoprolol 5 MG/5 ML VIAL IVP PRN (21:10)
[2020-05-25] MEDS: Insulin LISPRO 300 UNITS/3 ML VIAL SUBQ SCH ×5 (00:15→23:47)
[2020-05-25 01:52] LABS: Hematocrit 39.5 % (35.3-44.9); Hemoglobin 12.4 g/dL (11.5-15.4); Immature Granulocytes % 0.3 % (0-4); Lymphocytes # 0.6 K/mcL (0.6-4.6); Mean Corpuscular HGB Conc 31.4 g/dL (31.6-35.5); Mean Corpuscular Hemoglobin 33.2 pg (28.0-33.3); Mean Corpuscular Volume 105.9 fL (83.0-100.0); Mean Platelet Volume 10.7 fL (9.4-12.4); Monocytes # 0.7 K/mcL (0.0-1.3); Monocytes % 11.4 %; Neutrophils # 4.9 K/mcL (1.6-8.9); Platelet Count 219 K/mcL (140-400); Red Blood Count 3.73 M/mcL (3.82-4.97); Red Cell Distribution Width 13.2 % (11.5-14.5); Segmented Neutrophils % 78.3 %; White Blood Count 6.3 K/mcL (4.3-11.1)
[2020-05-25 02:18] LABS: Calcium 8.3 mg/dL (8.6-10.3); Potassium 4.3 mEq/L (3.5-5.1)
[2020-05-25] MEDS: Ipratropium/Albuterol Neb 3 ML IH SCH ×6 (03:49→23:46)
[2020-05-25] MEDS: *HR* Metoprolol 5 MG/5 ML VIAL IVP PRN ×2 (06:25→20:59)
[2020-05-25] MEDS: *HR* Heparin 5,000 UNIT/ML VIAL SQ SCH ×3 (06:25→20:47)
[2020-05-25] MEDS: Budesonide/Formoterol 160/4.5 1 PUFF INH IH SCH ×2 (07:41→19:56)
[2020-05-25 09:39] LABS: ANA IgG by ELISA NONE DETECTED (None Detected)
[2020-05-25 09:46] LABS: Serine Protease-3 Antibody 2 AU/mL (0-19)
[2020-05-25 09:48] LABS: GBM IgG Multiplex Bead Assay 0 AU/mL (0-19); Glomerular Basement Memb IgG NEGATIVE (Negative)
[2020-05-25] MEDS: cefTRIAXone 1,000 MG in 0.9 % Sodium Chloride Mini Bag 100 ML IVPB SCH (11:50)
[2020-05-25] MEDS: MethylPREDNISolone 40 MG/ML VIAL IVP SCH (11:50)
[2020-05-25] MEDS: Insulin DETEMIR 100 UNIT/ML X5UNITS SUBQ SCH ×2 (11:50→21:00)
[2020-05-25] MEDS: Loratadine 10 MG TABLET PO SCH (11:51)
[2020-05-25] MEDS: Magnesium Oxide 400 MG TABLET PO SCH ×3 (11:51→20:47)
[2020-05-25] MEDS: Folic Acid 1 MG TABLET PO SCH ×2 (17:12→20:47)
[2020-05-25] MEDS: QUEtiapine Fumarate 25 MG TABLET PO SCH (20:47)
[2020-05-25 22:08] LABS: VBG Ionized Calcium 1.09 mmol/L (1.15-1.35)
[2020-05-25] MEDS: Calcium Gluconate 1gm/50mL 1 GM/50 ML BAG IVPB PRN (22:28)
[2020-05-26 01:16] LABS: Basophils % 0.3 %; Hemoglobin 11.8 g/dL (11.5-15.4); Immature Granulocytes % 0.8 % (0-4); Lymphocytes # 0.3 K/mcL (0.6-4.6); Lymphocytes % 8.6 %; Mean Corpuscular HGB Conc 31.9 g/dL (31.6-35.5); Mean Corpuscular Hemoglobin 33.1 pg (28.0-33.3); Mean Corpuscular Volume 103.9 fL (83.0-100.0); Mean Platelet Volume 10.4 fL (9.4-12.4); Monocytes # 0.4 K/mcL (0.0-1.3); Monocytes % 9.9 %; Platelet Count 177 K/mcL (140-400); Red Blood Count 3.56 M/mcL (3.82-4.97); Segmented Neutrophils % 80.4 %; White Blood Count 3.7 K/mcL (4.3-11.1)
[2020-05-26 01:36] LABS: Calcium 8.7 mg/dL (8.6-10.3); Potassium 4.7 mEq/L (3.5-5.1)
[2020-05-26] MEDS: *HR* Metoprolol 5 MG/5 ML VIAL IVP PRN ×2 (03:12→20:27)
[2020-05-26] MEDS: Ipratropium/Albuterol Neb 3 ML IH SCH ×6 (03:50→22:54)
[2020-05-26 05:02] LABS: VBG Ionized Calcium 1.16 mmol/L (1.15-1.35)
[2020-05-26] MEDS: Insulin LISPRO 300 UNITS/3 ML VIAL SUBQ SCH ×4 (05:52→23:58)
[2020-05-26] MEDS: *HR* Heparin 5,000 UNIT/ML VIAL SQ SCH ×3 (05:59→22:15)
[2020-05-26] MEDS: Budesonide/Formoterol 160/4.5 1 PUFF INH IH SCH ×2 (08:01→20:11)
[2020-05-26 08:38] LABS: Alpha 2 Globulin (PEP) 0.73 g/dL (0.48-1.05)
[2020-05-26] MEDS: Loratadine 10 MG TABLET PO SCH (08:44)
[2020-05-26] MEDS: Magnesium Oxide 400 MG TABLET PO SCH ×3 (08:44→20:25)
[2020-05-26] MEDS: Folic Acid 1 MG TABLET PO SCH ×3 (08:44→20:24)
[2020-05-26] MEDS: Insulin DETEMIR 100 UNIT/ML X5UNITS SUBQ SCH ×2 (08:44→22:02)
[2020-05-26] MEDS: MethylPREDNISolone 40 MG/ML VIAL IVP SCH (08:45)
[2020-05-26] MEDS: cefTRIAXone 1,000 MG in 0.9 % Sodium Chloride Mini Bag 100 ML IVPB SCH (08:46)
[2020-05-26 09:32] LABS: IFE Reflexed IFE Done; Immunoglobulin A 321 mg/dL (68-408); Immunoglobulin G 1350 mg/dL (768-1632); Immunoglobulin M 84 mg/dL (35-263)
[2020-05-26] MEDS ORDERED: Insulin LISPRO 300 UNITS/3 ML VIAL SUBQ ONE ×2 (18:10→19:39)
[2020-05-26] MEDS: QUEtiapine Fumarate 25 MG TABLET PO SCH (20:25)
[2020-05-27 02:42] LABS: Mean Corpuscular Volume 104.7 fL (83.0-100.0); Mean Platelet Volume 10.9 fL (9.4-12.4)
[2020-05-27 02:44] LABS: Basophils % 0.4 %; Hematocrit 44.2 % (35.3-44.9); Immature Granulocytes % 1.8 % (0-4); Immature Platelets 5.5 % (1.1-6.1); Lymphocytes # 0.8 K/mcL (0.6-4.6); Lymphocytes % 15.6 %; Mean Corpuscular HGB Conc 31.7 g/dL (31.6-35.5); Mean Corpuscular Hemoglobin 33.2 pg (28.0-33.3); Monocytes # 0.7 K/mcL (0.0-1.3); Monocytes % 12.9 %; Platelet Count 174 K/mcL (140-400); Red Blood Count 4.22 M/mcL (3.82-4.97); Red Cell Distribution Width 13.1 % (11.5-14.5); Segmented Neutrophils % 69.3 %; White Blood Count 5.1 K/mcL (4.3-11.1)
[2020-05-27 02:57] LABS: Neutrophils # 3.5 K/mcL (1.6-8.9)
[2020-05-27 02:59] LABS: Calcium 9.3 mg/dL (8.6-10.3); Potassium 3.8 mEq/L (3.5-5.1)
[2020-05-27] MEDS: Ipratropium/Albuterol Neb 3 ML IH SCH ×6 (04:33→23:32)
[2020-05-27] MEDS: *HR* Heparin 5,000 UNIT/ML VIAL SQ SCH ×3 (06:29→22:07)
[2020-05-27] MEDS: Insulin LISPRO 300 UNITS/3 ML VIAL SUBQ SCH ×5 (06:29→20:22)
[2020-05-27] MEDS: Budesonide/Formoterol 160/4.5 1 PUFF INH IH SCH ×2 (07:22→19:48)
[2020-05-27] MEDS: MethylPREDNISolone 40 MG/ML VIAL IVP SCH ×2 (07:55→20:20)
[2020-05-27] MEDS: Insulin DETEMIR 100 UNIT/ML X5UNITS SUBQ SCH ×2 (07:55→20:21)
[2020-05-27] MEDS: Magnesium Oxide 400 MG TABLET PO SCH ×3 (07:56→20:21)
[2020-05-27] MEDS: Folic Acid 1 MG TABLET PO SCH ×3 (07:56→20:21)
[2020-05-27] MEDS: Loratadine 10 MG TABLET PO SCH (07:56)
[2020-05-27] MEDS: cefTRIAXone 1,000 MG in 0.9 % Sodium Chloride Mini Bag 100 ML IVPB SCH (07:58)
[2020-05-27] MEDS ORDERED: Insulin LISPRO 300 UNITS/3 ML VIAL SUBQ ONE (17:54)
[2020-05-27] MEDS: QUEtiapine Fumarate 25 MG TABLET PO SCH (20:21)
[2020-05-28 02:49] LABS: Hematocrit 36.1 % (35.3-44.9); Hemoglobin 11.6 g/dL (11.5-15.4); Mean Corpuscular HGB Conc 32.1 g/dL (31.6-35.5); Mean Corpuscular Hemoglobin 33.6 pg (28.0-33.3); Mean Corpuscular Volume 104.6 fL (83.0-100.0); Platelet Count 152 K/mcL (140-400); Red Blood Count 3.45 M/mcL (3.82-4.97); Red Cell Distribution Width 13.1 % (11.5-14.5); Segmented Neutrophils % 81.9 %; White Blood Count 3.8 K/mcL (4.3-11.1)
[2020-05-28 02:50] LABS: Basophils % 0.3 %; Immature Granulocytes % 1.6 % (0-4); Lymphocytes # 0.4 K/mcL (0.6-4.6); Lymphocytes % 9.3 %; Monocytes # 0.3 K/mcL (0.0-1.3); Monocytes % 6.9 %; Neutrophils # 3.1 K/mcL (1.6-8.9)
[2020-05-28 03:11] LABS: BUN/Creatinine Ratio 34 (6-26); Blood Urea Nitrogen 31 mg/dL (6-20); Calcium 8.4 mg/dL (8.6-10.3); Carbon Dioxide 27 mEq/L (23-29); Chloride 101 mEq/L (98-107); Glucose 405 mg/dL (70-105); Osmolality,Calculated 308 (280-300); Potassium 4.4 mEq/L (3.5-5.1); Sodium 137 mEq/L (136-145); eGFR For African Americans > 60 (> 60); eGFR For Non-African Americans > 60 (> 60)
[2020-05-28] MEDS: Ipratropium/Albuterol Neb 3 ML IH SCH ×6 (04:12→23:25)
[2020-05-28] MEDS: Insulin LISPRO 300 UNITS/3 ML VIAL SUBQ SCH ×4 (06:49→20:39)
[2020-05-28] MEDS: *HR* Heparin 5,000 UNIT/ML VIAL SQ SCH ×3 (06:56→20:43)
[2020-05-28] MEDS: MethylPREDNISolone 40 MG/ML VIAL IVP SCH (07:35)
[2020-05-28] MEDS: Budesonide/Formoterol 160/4.5 1 PUFF INH IH SCH ×2 (07:54→20:36)
[2020-05-28] MEDS: Magnesium Oxide 400 MG TABLET PO SCH ×3 (08:20→20:39)
[2020-05-28] MEDS: Insulin DETEMIR 100 UNIT/ML X5UNITS SUBQ SCH (08:20)
[2020-05-28] MEDS: Loratadine 10 MG TABLET PO SCH (08:20)
[2020-05-28] MEDS: Folic Acid 1 MG TABLET PO SCH ×3 (08:20→20:38)
[2020-05-28] MEDS: *HR* Metoprolol 5 MG/5 ML VIAL IVP PRN (11:44)
[2020-05-28] MEDS ORDERED: Insulin LISPRO 300 UNITS/3 ML VIAL SUBQ ONE (12:06)
[2020-05-28] MEDS ORDERED: Insulin DETEMIR 100 UNIT/ML X5UNITS SUBQ ONE (12:07)
[2020-05-28] MEDS: amLODIPine 5 MG TABLET PO SCH (13:22)
[2020-05-28] MEDS: QUEtiapine Fumarate 25 MG TABLET PO SCH (20:38)
[2020-05-28] MEDS ORDERED: Insulin DETEMIR 100 UNIT/ML X5UNITS SUBQ SCH (21:00)
[2020-05-29] MEDS: Ipratropium/Albuterol Neb 3 ML IH SCH ×3 (04:13→11:01)
[2020-05-29] MEDS: *HR* Heparin 5,000 UNIT/ML VIAL SQ SCH (04:59)
[2020-05-29] MEDS: Budesonide/Formoterol 160/4.5 1 PUFF INH IH SCH (07:43)
[2020-05-29] MEDS: Insulin LISPRO 300 UNITS/3 ML VIAL SUBQ SCH ×2 (08:01→12:10)
[2020-05-29] MEDS ORDERED: predniSONE 20 MG TABLET PO SCH (09:00)
[2020-05-29] MEDS ORDERED: Insulin DETEMIR 100 UNIT/ML X5UNITS SUBQ SCH (09:00)
[2020-05-29 11:23] VITALS: BP 156/82
[2020-05-29] MEDS: Loratadine 10 MG TABLET PO SCH (12:08)
[2020-05-29] MEDS: Magnesium Oxide 400 MG TABLET PO SCH (12:09)
[2020-05-29] MEDS: Folic Acid 1 MG TABLET PO SCH (12:09)
[2020-05-29] MEDS: amLODIPine 5 MG TABLET PO SCH (12:09)
[2020-05-29 14:08] LABS: Adenovirus Not Detected (Not Detect); Bordetella Pertussis Not Detected (Not Detect); Chlamydophila pneumoniae Not Detected (Not Detect); Coronavirus 229E Not Detected (Not Detect); Coronavirus HKU1 Not Detected (Not Detect); Coronavirus NL63 Not Detected (Not Detect); Coronavirus OC43 Not Detected (Not Detect); Human Metapneumovirus Not Detected (Not Detect); Human Rhinovirus/Enterovirus Not Detected (Not Detect); Influenza A Subtype 2009 H1 Not Detected (Not Detect); Influenza B Not Detected (Not Detect); Mycoplasma pneumoniae Not Detected (Not Detect); Parainfluenza Virus 1 Not Detected (Not Detect); Parainfluenza Virus 2 Not Detected (Not Detect); Parainfluenza Virus 3 Not Detected (Not Detect); Parainfluenza Virus 4 Not Detected (Not Detect); Respiratory Syncytial Virus Not Detected (Not Detect); SARS-CoV-2 Not Detected (Not Detect)
== END 2020-05-29 15:09 | DRG 469 ==
LOC: EMEROOARM 22:49 → 2NNU 22:49 → ICNU 05-22 13:00 → SUATTDRO 05-24 10:57 → 2NNU 05-24 20:10 → 2ANU 05-28 19:05
PROVIDERS: ADMIT Student in an Organized Health Care Education/Training Program; ATTEND Family Medicine

== ENCOUNTER 2020-06-19 16:28 | Inpatient (IN) ==
[2020-06-19 17:21] LABS: Basophils % 0.2 %; Eosinophils # 0.4 K/mcL (0.0-0.6); Eosinophils % 4.2 %; Hemoglobin 12.2 g/dL (11.5-15.4); Immature Granulocytes % 0.6 % (0-4); Lymphocytes # 1.5 K/mcL (0.6-4.6); Lymphocytes % 16.8 %; Mean Corpuscular Volume 103.1 fL (83.0-100.0); Mean Platelet Volume 10.7 fL (9.4-12.4); Monocytes # 1.4 K/mcL (0.0-1.3); Monocytes % 15.8 %; Neutrophils # 5.4 K/mcL (1.6-8.9); Platelet Count 246 K/mcL (140-400); Red Blood Count 3.59 M/mcL (3.82-4.97); Red Cell Distribution Width 13.8 % (11.5-14.5); Segmented Neutrophils % 62.4 %; White Blood Count 8.6 K/mcL (4.3-11.1)
[2020-06-19 17:26] LABS: Bilirubin,Urine Negative (Negative); Blood,Urine Negative (Negative); Clarity,Urine Clear (Clear); Color,Urine Yellow (Yellow); Glucose,Urine (UA) Normal (Normal); Hyaline Casts,Urine Many per lpf (None Seen); Ketones,Urine Negative (Negative); Leukocyte Esterase,Urine Trace (Negative); Mucus,Urine Few per lpf (None-Few); Nitrite,Urine Negative (Negative); Protein,Urine 50 mg/dL (Neg-Trace); RBC,Urine 0-3 per hpf (0-3); Specific Gravity,Urine 1.025 (1.010-1.025); Squamous Epithelial Cell,Urine Few per hpf (None-Few)
[2020-06-19 17:35] LABS: Calcium 9.2 mg/dL (8.6-10.3); Potassium 6.2 mEq/L (3.5-5.1)
[2020-06-19] MEDS ORDERED: 0.9 % Sodium Chloride 1,000 ML IVC ONE (17:46)
[2020-06-19] MEDS: Calcium Gluconate 1gm/50mL 1 GM/50 ML BAG IVPB SCH ×3 (17:53→20:47)
[2020-06-19] MEDS ORDERED: *HR* Dextrose 50 % in Water (Vial) 50 ML VIAL IVP ONE ×2 (18:42→23:28)
[2020-06-19] MEDS ORDERED: Insulin Human Regular 10 UNIT in 0.9 % Sodium Chloride 10 ML IV ONE ×2 (18:42→23:27)
[2020-06-19] MEDS ORDERED: Naloxone 0.4 MG/ML INJ IVP PRN (19:23)
[2020-06-19] MEDS ORDERED: Ondansetron 4 MG/2 ML VIAL IVP PRN (19:23)
[2020-06-19] MEDS ORDERED: 0.9 % Sodium Chloride 1,000 ML IVC SCH (19:30)
[2020-06-19] MEDS ORDERED: D5% in Water 1,000 ML IVC PRN (19:30)
[2020-06-19] MEDS ORDERED: Dextrose Gel 15 GM/37.5 ML TUBE PO PRN ×2 (19:30)
[2020-06-19] MEDS ORDERED: *HR* Dextrose 50 % in Water (Vial) 50 ML VIAL IVP PRN (19:30)
[2020-06-19] MEDS: Insulin LISPRO 300 UNITS/3 ML VIAL SUBQ SCH (20:51)
[2020-06-19 22:34] LABS: ABG Base Excess 3 mEq/L (-2 to 3); ABG HCO3 30 mEq/L (21-27); ABG Oxygen Saturation 91 % (95-98); ABG PCO2 57 mmHg (35-45); ABG PH 7.33 pH Units (7.32-7.45); ABG PO2 66 mmHg (85-104); ABG TCO2 32 mEq/L (20-26)
[2020-06-19 23:03] LABS: Calcium 8.8 mg/dL (8.6-10.3); Potassium 6.1 mEq/L (3.5-5.1)
[2020-06-19] MEDS ORDERED: *HR* LORazepam 2 MG/ML VIAL IVP ONE (23:07)
[2020-06-20] MEDS ORDERED: Ipratropium/Albuterol Neb 3 ML IH PRN
[2020-06-20] MEDS ORDERED: Hydrocortisone Sodium Succ 100 MG/2 ML VIAL IVP SCH
[2020-06-20] MEDS: Insulin LISPRO 300 UNITS/3 ML VIAL SUBQ SCH ×4 (00:34→17:23)
[2020-06-20] MEDS: Nystatin POWDER 30 GM BOTTLE TP SCH ×3 (01:53→21:00)
[2020-06-20 02:19] LABS: Hematocrit 34.6 % (35.3-44.9); Hemoglobin 11.3 g/dL (11.5-15.4); Mean Corpuscular HGB Conc 32.7 g/dL (31.6-35.5); Mean Corpuscular Hemoglobin 33.6 pg (28.0-33.3); Mean Platelet Volume 10.8 fL (9.4-12.4); Platelet Count 234 K/mcL (140-400); Red Blood Count 3.36 M/mcL (3.82-4.97); Red Cell Distribution Width 13.9 % (11.5-14.5); White Blood Count 6.4 K/mcL (4.3-11.1)
[2020-06-20 02:30] LABS: Sodium, Urine 18.2 mEq/L
[2020-06-20 03:06] LABS: Calcium 8.8 mg/dL (8.6-10.3); Potassium 5.5 mEq/L (3.5-5.1)
[2020-06-20] MEDS: 0.9 % Sodium Chloride 1,000 ML IVC SCH ×4 (03:32→18:32)
[2020-06-20] MEDS ORDERED: *HR* LORazepam 2 MG/ML VIAL IVP ONE (04:04)
[2020-06-20] MEDS: *HR* Heparin 5,000 UNIT/ML VIAL SQ SCH ×3 (04:13→20:58)
[2020-06-20] MEDS ORDERED: *HR* Metoprolol 5 MG/5 ML VIAL IVP ONE (05:35)
[2020-06-20 06:57] LABS: Calcium 8.9 mg/dL (8.6-10.3); Potassium 6.1 mEq/L (3.5-5.1)
[2020-06-20] MEDS ORDERED: Azithromycin 500 MG in 0.9 % Sodium Chloride 250 ML IVPB SCH (07:00)
[2020-06-20] MEDS: Ipratropium/Albuterol Neb 3 ML IH SCH ×5 (07:19→23:23)
[2020-06-20] MEDS: MethylPREDNISolone 40 MG/ML VIAL IVP SCH ×3 (08:32→17:22)
[2020-06-20] MEDS ORDERED: Calcium Gluconate 1gm/50mL 1 GM/50 ML BAG IVPB ONE (09:15)
[2020-06-20] MEDS: Dexmedetomidine HCl 400 MCG/100 ML MLS IVC SCH ×3 (09:35→19:44)
[2020-06-20] MEDS ORDERED: Sodium Bicarbonate 75 MEQ in 0.45 % Sodium Chloride 1,000 ML IVC SCH (10:45)
[2020-06-20 11:22] LABS: ABG Base Excess 1 mEq/L (-2 to 3); ABG HCO3 29 mEq/L (21-27); ABG Oxygen Saturation 92 % (95-98); ABG PCO2 60 mmHg (35-45); ABG PO2 74 mmHg (85-104); ABG TCO2 31 mEq/L (20-26)
[2020-06-20 14:02] LABS: Calcium 8.8 mg/dL (8.6-10.3); Potassium 6.1 mEq/L (3.5-5.1); Uric Acid 10.6 mg/dL (2.3-7.6)
[2020-06-20] MEDS: SODIUM ZIRCONIUM CYCLOSILICATE 5 GM POWD.PACK PO SCH (14:20)
[2020-06-20 14:39] LABS: Hepatitis B Surface Antigen Nonreactive (Nonreactive)
[2020-06-20 15:07] LABS: Hepatitis B Core IgM Nonreactive (Nonreactive)
[2020-06-20 15:08] LABS: Hepatitis C Virus Antibody Nonreactive (Nonreactive)
[2020-06-20 15:09] LABS: Hepatitis A Antibody IgM Nonreactive (Nonreactive)
[2020-06-20 17:01] LABS: ABG Base Excess 1 mEq/L (-2 to 3); ABG HCO3 28 mEq/L (21-27); ABG Oxygen Saturation 87 % (95-98); ABG PCO2 53 mmHg (35-45); ABG PH 7.33 pH Units (7.32-7.45); ABG PO2 57 mmHg (85-104); ABG TCO2 30 mEq/L (20-26)
[2020-06-20] MEDS: cefTRIAXone 1,000 MG in 0.9 % Sodium Chloride Mini Bag 100 ML IVPB SCH (20:58)
[2020-06-21] MEDS: Insulin LISPRO 300 UNITS/3 ML VIAL SUBQ SCH ×5 (00:32→23:58)
[2020-06-21] MEDS: Dexmedetomidine HCl 400 MCG/100 ML MLS IVC SCH ×4 (00:32→23:02)
[2020-06-21] MEDS: 0.9 % Sodium Chloride 1,000 ML IVC SCH ×3 (03:29→21:15)
[2020-06-21] MEDS: MethylPREDNISolone 40 MG/ML VIAL IVP SCH ×4 (03:32→23:58)
[2020-06-21] MEDS: Ipratropium/Albuterol Neb 3 ML IH SCH ×6 (03:58→23:25)
[2020-06-21 04:05] LABS: Hematocrit 33.5 % (35.3-44.9); Hemoglobin 11.1 g/dL (11.5-15.4); Mean Corpuscular HGB Conc 33.1 g/dL (31.6-35.5); Mean Corpuscular Hemoglobin 33.4 pg (28.0-33.3); Mean Corpuscular Volume 100.9 fL (83.0-100.0); Mean Platelet Volume 10.5 fL (9.4-12.4); Platelet Count 159 K/mcL (140-400); Red Blood Count 3.32 M/mcL (3.82-4.97); Red Cell Distribution Width 12.8 % (11.5-14.5); White Blood Count 4.1 K/mcL (4.3-11.1)
[2020-06-21 04:23] LABS: Calcium 8.7 mg/dL (8.6-10.3); Potassium 5.3 mEq/L (3.5-5.1)
[2020-06-21] MEDS: *HR* Heparin 5,000 UNIT/ML VIAL SQ SCH ×3 (05:24→21:15)
[2020-06-21] MEDS: SODIUM ZIRCONIUM CYCLOSILICATE 5 GM POWD.PACK PO SCH (08:36)
[2020-06-21] MEDS: Nystatin POWDER 30 GM BOTTLE TP SCH ×2 (08:58→21:16)
[2020-06-21] MEDS ORDERED: *HR* Dextrose 50 % in Water (Vial) 50 ML VIAL IVP PRN (09:12)
[2020-06-21] MEDS ORDERED: D5% in Water 1,000 ML IVC PRN (09:12)
[2020-06-21] MEDS ORDERED: Dextrose Gel 15 GM/37.5 ML TUBE PO PRN ×2 (09:12)
[2020-06-21] MEDS: Insulin DETEMIR 100 UNIT/ML X5UNITS SUBQ SCH ×2 (10:00→21:15)
[2020-06-21 14:08] LABS: SARS-CoV-2 by NAA Not Detected (Not Detected)
[2020-06-21 16:24] LABS: Estimated Average Glucose 223 mg/dl; Hemoglobin A1C 9.4 %
[2020-06-21] MEDS: *HR* LORazepam 2 MG/ML VIAL IVP PRN (18:10)
[2020-06-21] MEDS: cefTRIAXone 1,000 MG in 0.9 % Sodium Chloride Mini Bag 100 ML IVPB SCH (21:13)
[2020-06-22 01:12] LABS: Hematocrit 32.8 % (35.3-44.9); Hemoglobin 10.8 g/dL (11.5-15.4); Mean Corpuscular HGB Conc 32.9 g/dL (31.6-35.5); Mean Corpuscular Hemoglobin 33.3 pg (28.0-33.3); Mean Corpuscular Volume 101.2 fL (83.0-100.0); Mean Platelet Volume 10.3 fL (9.4-12.4); Platelet Count 192 K/mcL (140-400); Red Blood Count 3.24 M/mcL (3.82-4.97); Red Cell Distribution Width 13.2 % (11.5-14.5); White Blood Count 5.7 K/mcL (4.3-11.1)
[2020-06-22 01:32] LABS: BUN/Creatinine Ratio 26 (6-26); Blood Urea Nitrogen 30 mg/dL (6-20); Calcium 8.7 mg/dL (8.6-10.3); Carbon Dioxide 23 mEq/L (23-29); Chloride 103 mEq/L (98-107); Glucose 376 mg/dL (70-105); Osmolality,Calculated 302 (280-300); Potassium 4.9 mEq/L (3.5-5.1); Sodium 135 mEq/L (136-145); eGFR For African Americans > 60 (> 60); eGFR For Non-African Americans 50 (> 60)
[2020-06-22] MEDS: Ipratropium/Albuterol Neb 3 ML IH SCH ×5 (04:01→19:34)
[2020-06-22] MEDS: 0.9 % Sodium Chloride 1,000 ML IVC SCH ×2 (05:39→14:04)
[2020-06-22] MEDS: *HR* Heparin 5,000 UNIT/ML VIAL SQ SCH ×3 (05:39→20:31)
[2020-06-22] MEDS: Insulin LISPRO 300 UNITS/3 ML VIAL SUBQ SCH ×5 (05:40→17:11)
[2020-06-22] MEDS: SODIUM ZIRCONIUM CYCLOSILICATE 5 GM POWD.PACK PO SCH (07:35)
[2020-06-22 11:03] LABS: Protein/Creatinine Ratio,Urine 0.24 mg/mg (0.00-0.20)
[2020-06-22 11:04] LABS: Amphetamine Screen,Urine Negative ng/mL (Cutoff=1000); Barbiturate Screen,Urine Negative ng/mL (Cutoff=200); Benzodiazepines Screen,Urine Negative ng/mL (Cutoff=200); Cannabinoid Screen,Urine Negative ng/mL (Cutoff = 50); Cocaine Screen,Urine Negative ng/mL (Cutoff= 300); Opiate Screen,Urine Negative ng/mL (Cutoff=300); Phencyclidine Screen,Urine Negative ng/mL (Cutoff=25)
[2020-06-22] MEDS ORDERED: Insulin LISPRO 300 UNITS/3 ML VIAL SUBQ SCH ×3 (11:30→21:00)
[2020-06-22] MEDS: MethylPREDNISolone 40 MG/ML VIAL IVP SCH ×2 (11:34→23:57)
[2020-06-22] MEDS: Nystatin POWDER 30 GM BOTTLE TP SCH ×2 (11:42→20:23)
[2020-06-22] MEDS ORDERED: Ipratropium/Albuterol Neb 3 ML IH PRN (20:18)
[2020-06-22] MEDS: *HR* LORazepam 2 MG/ML VIAL IVP PRN ×2 (20:26→21:51)
[2020-06-22] MEDS ORDERED: Insulin DETEMIR 100 UNIT/ML X5UNITS SUBQ SCH (21:00)
[2020-06-23 04:55] LABS: Hematocrit 32.7 % (35.3-44.9); Hemoglobin 10.8 g/dL (11.5-15.4); Mean Corpuscular Hemoglobin 33.6 pg (28.0-33.3); Mean Corpuscular Volume 101.9 fL (83.0-100.0); Mean Platelet Volume 10.3 fL (9.4-12.4); Platelet Count 145 K/mcL (140-400); Red Blood Count 3.21 M/mcL (3.82-4.97); Red Cell Distribution Width 13.5 % (11.5-14.5); White Blood Count 4.7 K/mcL (4.3-11.1)
[2020-06-23 05:13] LABS: BUN/Creatinine Ratio 32 (6-26); Blood Urea Nitrogen 34 mg/dL (6-20); Calcium 8.5 mg/dL (8.6-10.3); Carbon Dioxide 24 mEq/L (23-29); Chloride 102 mEq/L (98-107); Glucose 406 mg/dL (70-105); Osmolality,Calculated 305 (280-300); Potassium 4.5 mEq/L (3.5-5.1); Sodium 135 mEq/L (136-145); eGFR For African Americans > 60 (> 60); eGFR For Non-African Americans 55 (> 60)
[2020-06-23] MEDS: *HR* Heparin 5,000 UNIT/ML VIAL SQ SCH ×2 (05:59→12:06)
[2020-06-23] MEDS ORDERED: predniSONE 20 MG TABLET PO SCH (09:00)
[2020-06-23] MEDS: Insulin LISPRO 300 UNITS/3 ML VIAL SUBQ SCH ×4 (09:06→12:06)
[2020-06-23] MEDS: Nystatin POWDER 30 GM BOTTLE TP SCH (09:08)
[2020-06-23 11:59] VITALS: BP 183/84
[2020-06-23 15:52] LABS: Adenovirus Not Detected (Not Detect); Bordetella Pertussis Not Detected (Not Detect); Chlamydophila pneumoniae Not Detected (Not Detect); Coronavirus 229E Not Detected (Not Detect); Coronavirus HKU1 Not Detected (Not Detect); Coronavirus NL63 Not Detected (Not Detect); Coronavirus OC43 Not Detected (Not Detect); Human Metapneumovirus Not Detected (Not Detect); Human Rhinovirus/Enterovirus Not Detected (Not Detect); Influenza A Subtype 2009 H1 Not Detected (Not Detect); Influenza B Not Detected (Not Detect); Mycoplasma pneumoniae Not Detected (Not Detect); Parainfluenza Virus 1 Not Detected (Not Detect); Parainfluenza Virus 2 Not Detected (Not Detect); Parainfluenza Virus 3 Not Detected (Not Detect); Parainfluenza Virus 4 Not Detected (Not Detect); Respiratory Syncytial Virus Not Detected (Not Detect); SARS-CoV-2 Not Detected (Not Detect)
[2020-06-23] MEDS ORDERED: Insulin DETEMIR 100 UNIT/ML X5UNITS SUBQ SCH (21:00)
== END 2020-06-23 18:19 | disposition home or self-care (01) | DRG 469 ==
LOC: 2ANU 16:28 → EMEROOARM 16:28 → SUATTDRO 19:22 → 2ANU 20:15 → 2NNU 06-20 01:22 → 2ANU 06-22 14:23
PROVIDERS: ADMIT Internal Medicine; ATTEND Internal Medicine